=== PATIENT | female | born 1990 | race Caucasian/White ===

== ENCOUNTER → 2017-09-01 12:56 | Outpatient (CLI) | payer MEDICAID, SELFPAY ==
[2017-09-01 14:23] LABS: Progesterone Level 43.53 ng/mL (See Comment)
[2017-09-01 14:31] LABS: hCG Titer Quant., Serum 986 mIU/mL (<9 non-preg)
== END ==
DX: N91.4 Secondary oligomenorrhea (principal)
CPT/HCPCS: 36415; 84144; 84702

== ENCOUNTER → 2017-09-03 10:24 | Outpatient (CLI) | payer MEDICAID, SELFPAY ==
[2017-09-03 12:11] LABS: Progesterone Level 52.22 ng/mL (See Comment)
[2017-09-03 12:15] LABS: hCG Titer Quant., Serum 2008 mIU/mL (<9 non-preg)
== END ==
DX: N91.4 Secondary oligomenorrhea (principal)
CPT/HCPCS: 36415; 84144; 84702

== ENCOUNTER → 2017-09-08 14:43 | Outpatient (CLI) | payer MEDICAID, SELFPAY ==
--- NOTE | 2017-09-08 14:46 | US_ITS ---
STUDY: FIRST TRIMESTER OBSTETRICAL ULTRASOUND REASON FOR EXAM: Female, 27 years old. viability. LMP: 07/31/2017 TECHNIQUE: Transvaginal PRIOR ULTRASOUND: None. FINDINGS: There is visualization of a single gestational sac in a normal intrauterine position. The mean sac diameter (MSD) measures 1.0 cm, indicating an estimated gestational age (EGA) of 5 weeks, 5 days. The gestational sac shape is within normal limits. There is a visualized yolk sac. The yolk sac measures 3.4 mm. The placenta is non-visualized. There is no demonstrated embryo ( pole). The estimated gestation age (EGA) by LMP is 5 weeks, 4 days. The estimated date of delivery (JEWELS) by LMP is 05/07/2018. The estimated gestation age (EGA) by US is 5 weeks, 5 days. The estimated date of delivery (JEWELS) by US is 05/06/2018. The uterus measures 8.9 x 7.0 x 5.3 cm. There is no demonstrated uterine fibroid. The cervix is closed. The right ovary measures 2.5 x 1.7 x 1.2 cm. There is no right ovarian cyst. There is no visualized right adnexal mass or complex lesion. The left ovary measures 3.2 x 2.2 x 2.7 cm. There is no left ovarian cyst. There is no visualized left adnexal mass or complex lesion. There is no fluid in the cul de sac. US/Transvaginal w/Preg US IMPRESSION: Findings consistent with a very early intrauterine gestation. Ultrasound EGA of approximately 5 weeks 5 days. No pole or cardiac activity is seen and therefore viability is not established. Suggest short interval follow-up and correlation with beta hCG. Electronically Signed: Mihcael Loza MD at 23:58 EDT , Service support ,
== END ==
DX: O36.80X0 Pregnancy with inconclusive fetal viability, not applicable or unspecified (principal); Z3A.00 Weeks of gestation of pregnancy not specified
CPT/HCPCS: 76817

== ENCOUNTER → 2017-09-15 09:27 | Outpatient (CLI) | payer MEDICAID, SELFPAY ==
--- NOTE | 2017-09-15 09:36 | US_ITS ---
US OB Transvaginal INDICATION: VIABILITY COMPARISON: None TECHNIQUE: Ultrasonographic grayscale, Doppler and duplex investigation of the via trans-vaginal approach FINDINGS: The uterus measures 9.8 x 6.9 x 5.1 cm it contains a single live intrauterine gestation with crown-rump length of 6 mm, estimating a gestational age of 6 weeks and 3 days. heart rate measures 130 bpm. Measures 2 mm. There is no evidence of subchorionic hemorrhage. The ovaries are normal in size and demonstrate normal follicular anatomy normal flow. There is no evidence of free pelvic fluid. US/Transvaginal w/Preg US IMPRESSION: Single live intrauterine gestation with estimated gestational age of 6 weeks and 3 days by today's measurements. heart rate 130 bpm. at 1815 Reported and signed by: Rocio Peña MD Electronically Signed: Rocio Peña MD at 18:13 EDT Tel , Service support ,
== END ==
DX: O36.80X0 Pregnancy with inconclusive fetal viability, not applicable or unspecified (principal); Z3A.00 Weeks of gestation of pregnancy not specified
CPT/HCPCS: 76817

== ENCOUNTER → 2018-01-19 15:25 | Outpatient (CLI) | payer MEDICAID, SELFPAY ==
[2018-01-19 17:28] LABS: Chlamydia Trachomatis by PCR Negative (Negative); Neisserai gonorrhoeae by PCR Negative (Negative); Probe Check PASS; Sample Adequacy Control PASS; Specimen Processing Control PASS
== END ==
PROVIDERS: Visit Provider Obstetrics & Gynecology
DX: Z34.90 Encounter for supervision of normal pregnancy, unspecified, unspecified trimester (principal)
CPT/HCPCS: 87491; 87591

== ENCOUNTER → 2018-02-16 11:33 | Outpatient (CLI) | payer MEDICAID, SELFPAY ==
[2018-02-16 13:02] LABS: Absolute Lymphocyte Count 1.21 X10^3/ul (0.83-4.51); Absolute Neutrophil Count 5.1 X10^3/uL (2.0-7.7); Basophil# 0.01 X10^3/uL; Basophil% 0.2 % (0-1); Eosinophil# 0.03 X10^3/uL; Eosinophils% 0.5 % (0-5); Hematocrit 34.9 % (37-47); Lymphocyte # 1.21 X10^3/ul (4.0); Lymphocyte % 18.3 % (19-41); Mean Corp Hgb Conc 34.4 g/gl (32-36); Mean Corpuscular Hgb 31.7 pg (27.0-32.0); Mean Corpuscular Volume 92.3 fL (81-99); Monocyte% 4.5 % (0-10); Neutrophil # 5.08 X10^3/uL (2.7-7.7); Neutrophil % 76.5 % (47-70); Platelet Count 167 K/mm3 (150-450); RBC Distribution Width CV 12.9 % (11.6-14.6); RBC Distribution Width SD 42.7 fl (35.1-43.9); Red Blood Count 3.78 M/mm3 (4.2-5.4); White Blood Count 6.6 K/mm3 (4.4-11.0)
[2018-02-16 13:03] LABS: POSITIVE COUNT NO; POSITIVE DIFFERENTIAL NO; POSITIVE MORPHOLOGY NO
[2018-02-16 13:16] LABS: Glucose Challenge Gest 1H 50g 108 mg/dL (70-140)
== END ==
PROVIDERS: Referring Provider Obstetrics & Gynecology; Visit Provider Obstetrics & Gynecology
DX: Z34.90 Encounter for supervision of normal pregnancy, unspecified, unspecified trimester (principal)
CPT/HCPCS: 36415; 82950; 85025

== ENCOUNTER → 2018-02-23 09:01 | Outpatient (CLI) | payer MEDICAID, SELFPAY ==
--- NOTE | 2018-02-23 09:02 | ECHOD_ITS ---
Reason For Study: congenital heart disease, PCK Procedure This was a 2D Doppler, Color Flow transthoracic echocardiogram. Exam performed in department. Left Ventricle Normal LV size. Left ventricular systolic function is normal. The estimated ejection fraction is 55 %. Normal diastology for age. No regional wall motion abnormalities noted. Right Ventricle Normal RV size. Normal systolic function. Atria Normal left atrium. Normal right atrium. Mitral Valve Normal mitral valve. Tricuspid Valve Normal tricuspid valve. Mild tricuspid valve insufficiency. Pulmonary artery systolic pressure is 34 mmHg. Aortic Valve Normal aortic valve. Pulmonic Valve Normal pulmonic valve. Great Vessels Normal aortic root. The pulmonary artery is normal size. Normal inferior vena cava. Pericardium/Pleural No pericardial effusion. MMode/2D Measurements & Calculations LVIDd: 4.4 cm IVSd: 0.88 cm Ao root diam: 2.4 cm LVIDs: 2.8 cm LVPWd: 0.92 cm LA dimension: 3.4 cm RVDd: 3.4 cm FS: 36.2 % LAV(MOD-bp): 43.6 ml LA A4 area: 16.6 cm2 RA A4 area: 11.2 cm2 LAV(MOD-bp) Indexed: 26.0 ml/m2 LAV(MOD-sp2): 37.5 ml LAV(MOD-sp4): 48.3 ml Doppler Measurements & Calculations MV E max dez: 91.5 cm/sec Lat Peak E' Dez: 15.9 cm/sec Med Peak E' Dez: 11.5 cm/sec MV A max dez: 72.9 cm/sec E/E' lat: 5.7 E/E' med: 7.9 MV E/A: 1.3 Ao V2 max: 128.2 cm/sec LV V1 max: 103.1 cm/sec TR max dez: 261.0 cm/sec Ao max P.6 mmHg LV V1 max P.3 mmHg TR max P.2 mmHg Interpretation Summary Normal LV size. Left ventricular systolic function is normal. The estimated ejection fraction is 55 %. Mild tricuspid valve insufficiency. Normal diastology for age. Ordering Physician: Milo Medel Referring Physician: Haylie Menendez Performed By: Khushbu Santos, MAROGT, RVT
== END ==
PROVIDERS: Referring Provider Internal Medicine Cardiovascular Disease; Visit Provider Internal Medicine Cardiovascular Disease
DX: Q61.3 Polycystic kidney, unspecified (principal)
CPT/HCPCS: 93306

== ENCOUNTER → 2018-04-13 16:50 | Outpatient (CLI) | payer MEDICAID, SELFPAY ==
[2018-04-13 10:40] VITALS: BMI 26.4
--- OUTSIDE RECORDS SUMMARY | 2018-06-09 02:55 | XMS RPT_ITS ---
:1990 Author Organization OHIP Support Name Relationship Address Phone [facility] Unavailable [address] + [place] [address] MGQUIRE, YAW Unavailable [address] + [place] [address] SYBIL RYANNE Unavailable [address] + [place] [address] [facility] Unavailable [address] + [place] [address] MGQUIRE, YAW Unavailable [address] + [place] [address] SYBIL RYANNE Unavailable [address] + [place] [address] [facility] Unavailable [address] + [place] [address] MGQUIRE, YAW Unavailable [address] + [place] [address] SYBIL RYANNE Unavailable [address] + [place] [address] [facility] Unavailable [address] + [place] [address] MGQUIRE, YAW Unavailable [address] + [place] [address] SYBIL RYANNE Unavailable [address] + [place] [address] BULL RODRIGUEZ Unavailable [address] + [place] [address] [facility] Un[address] + [place] [address] MGQUIRE, YAW Unavailable [address] + [place] [address] SYBIL, RYANNE Unavailable [address] + [place] [address] [facility] Unavailable [address] + [place] [address] MGQUIRE, YAW Unavailable [address] + [place] [address] SYBIL, RYANNE Unavailable [address] + [place] [address] ANA M, BULL Unavailable [address] + [place] [address] [facility] Unavailable [address] + [place] [address] MGQUIRE, YAW Unavailable [address] + [place] [address] SYBIL, RYANNE Unavailable [address] + [place] [address] [facility] Unavailable [address] + [place] [address] MGQUIRE, YAW Unavailable [address] + [place] [address] SYBIL, RYANNE Unavailable [address] + [place] [address] ANA M, BULL Unavailable [address] + [place] [address] [facility] Unavailable [address] + [place] [address] MGQUIRE, YAW Unavailable [address] + [place] [address] SYBIL, RYANNE Unavailable [address] + [place] [address] ANA M, BULL Unavailable [address] + [place] [address] ANA M BULL Unavailable [address] + [place] [address] [facility] Unavailable [address] + [place] [address] MGQUIRE, YAW Unavailable [address] + [place] [address] KATHERINE DEVINERICIA Unavailable [address] + [place] [address] RUFINA RODRIGUEZUA Unavailable [address] + [place] [address] BRITTANY RODRIGUEZSHUA Unavailable [address] + [place] [address] [facility] Unavailable [address] + [place] [address] MGQUIRE, YAW Unavailable [address] + [place] [address] KATHERINE DEVINERICIA Unavailable [address] + [place] [address] RUFINA RODRIGUEZUA Unavailable [address] + [place] [address] [facility] Unavailable [address] + [place] [address] MGQUIRE, YAW Unavailable [address] + [place] [address] KATHERINE DEVINERICIA Unavailable Unavailable + [facility] Unavailable [address] + [place] [address] MGQUIRE, YAW Unavailable [address] + [place] [address] SYBIL RYANNE Unavailable Unavailable + [facility] Unavailable [address] + [place] [address] MGQUIRE, YAW Unavailable [address] + [address] [place] [address] KATHERINE DEVINERICIA Unavailable Unavailable + [facility] Unavailable [address] + [place] [address] MGQUIRE, YAW Unavailable [address] + [address] [place] [address] [facility] Unavailable [address] + [place] [address] MGQUIRE, YAW Unavailable [address] + [address] [place] [address] BULL RODRIGUEZ Unavailable [address] + [place] [address] RUFINA RODRIGUEZUA Unavailable [address] + [place] [address] [facility] Unavailable [address] + [place] [address] MGQUIRE, YAW Unavailable [address] + [address] [place] [address] [facility] Unavailable [address] + [place] [address] MGQUIRE, YAW Unavailable [address] + [address] [place] [address] BULL RODRIGUEZ Unavailable [address] + [place] [address] RUFINA RODRIGUEZUA Unavailable [address] + [place] [address] BRITTANY RODRIGUEZSHUA Unavailable [address] + [place] [address] [facility] Unavailable [address] + [place] [address] MGQUIRE, YAW Unavailable [address] + [address] [place] [address] RUFINA RODRIGUEZUA Unavailable [address] + [place] [address] [facility] Unavailable [address] + [place] [address] MGQUIRE, YAW Unavailable [address] + [address] [place] [address] [facility] Unavailable [address] + [place] [address] MGQUIRE, YAW Unavailable [address] + [address] [place] [address] [facility] Unavailable [address] + [place] [address] MGQUIRE, YAW Unavailable [address] + [address] [place] [address] ANA M, RUFINA Unavailable [address] + [place] [address] ANA M, RUFINA Unavailable [address] + [place] [address] ANA M, FLORES Unavailable [address] + [place] [address] [facility] Unavailable [address] + [place] [address] MGQUIRE, YAW Unavailable [address] + [address] [place] [address] [facility] Unavailable [address] + [place] [address] MGQUIRE, YAW Unavailable [address] + [address] [place] [address] ANA M, RUFINA Unavailable [address] + [place] [address] ANA M, RUFINA Unavailable [address] + [place] [address] ANA M, FLORES Unavailable [address] + [place] [address] [facility] Un[address] + [place] [address] MGQUIRE, YAW Unavailable [address] + [address] [place] [address] [facility] Unavailable [address] + [place] [address] MGQUIRE, YAW Unavailable [address] + [address] [place] [address] ANA M, RUFINA Unavailable [address] + [place] [address] ANA M, RUFINA Unavailable [address] + [place] [address] ANA M, FLORES Unavailable [address] + [place] [address] ANA M, RUFINA Unavailable [address] + [place] [address] ANA M, RUFINA Unavailable [address] [facility] [address] + [place] [address] ANA M, FLORES Unavailable [address] + [place] [address] ANA M, RUFINA Unavailable [address] [facility] [address] + [place] [address] ANA M, RUFINA Unavailable [address] [facility] [address] + [place] [address] ANA M, FLORES Unavailable [address] + [place] [address] [facility] Unavailable [address] +. [place] [address] MGQUIREYAW Unavailable [address] + [address] [place] [address] Care Team Providers Name Role Phone CHAD ARCHER (SENIOR RELIABILITY ENGINEER) Attending Unavailable Dr. MARY PETERSON Attending Unavailable PCP, NONE Primary Care Unavailable LIDIA LINARES CNM Attending Unavailable PHYSICIAN, NONE Primary Care Unavailable LIDIA LINARES CNM Attending Unavailable PHYSICIAN, NONE Primary Care Unavailable LIDIA LINARES CNM Attending Unavailable PHYSICIAN, NONE Primary Care Unavailable LIDIA LINARES CNM Attending Unavailable PHYSICIAN, NONE Primary Care Unavailable LIDIA LINARES CNM Attending Unavailable PHYSICIAN, NONE Primary Care Unavailable NO PRIMARY CARE, Primary Care Unavailable ENRIQUE DONALDSON Attending Unavailable HAYLIE ALFARO Referring Unavailable NO PRIMARY CARE, Primary Care Unavailable REFERRED, SELF Referring Unavailable HILDA STEVE Attending Unavailable NO PRIMARY CARE, Primary Care Unavailable SUSANNA BRAY Attending Unavailable HAYLIE ALFARO Referring Unavailable NO PRIMARY CARE, Primary Care Unavailable CHUCHO CARRILLO Attending Unavailable SUSANNA BRAY Referring Unavailable NO PRIMARY CARE, Primary Care Unavailable TOM LAZO Attending Unavailable HAYLIE ALFARO Referring Unavailable NO PRIMARY CARE, Primary Care Unavailable HAYLIE ALFARO Referring Unavailable PAT MONTES Attending Unavailable NO PRIMARY CARE, Primary Care Unavailable SUSANNA BRAY Attending Unavailable MARCANTHONY, HAYLIE E Referring Unavailable NO PRIMARY CARE, Primary Care Unavailable ENRIQUE DONALDSON Attending Unavailable MARCANTHONY, HAYLIE E Referring Unavailable NO PRIMARY CARE, Primary Care Unavailable ENRIQUE DONALDSON Attending Unavailable MARCANTHONY, HAYLIE E Referring Unavailable NO PRIMARY CARE, Primary Care Unavailable ENRIQUE DONALDSON Attending Unavailable MARCANTHONY, HAYLIE E Referring Unavailable NO PRIMARY CARE, Primary Care Unavailable ENRIQUE DONALDSON Attending Unavailable MARCANTHONY, HAYLIE E Referring Unavailable NO PRIMARY CARE, Primary Care Unavailable SUSANNA BRAY Attending Unavailable MARCANTHONY, HAYLIE E Referring Unavailable NO PRIMARY CARE, Primary Care Unavailable MARCANTHONY, HAYLIE E Referring Unavailable PAT MONTES Attending Unavailable NO PRIMARY CARE, Primary Care Unavailable CASSANDRA VALDES Attending Unavailable MARCANTHONY, HAYLIE E Referring Unavailable Marcanthony, Haylie Attending Unavailable Primay Care Physicia, No Primary Care Unavailable Marcanthony, Haylie Admitting Unavailable Marcanthony, Haylie Referring Unavailable Marcanthony, Haylie Admitting Unavailable Marcanthony, Haylie Attending Unavailable Marcanthony, Haylie Referring Unavailable Primay Care Physicia, No Primary Care Unavailable Marcanthony, Haylie Consulting Unavailable Primay Care Physicia, No Primary Care Unavailable Connie Nguyen Attending Unavailable AMELIA DAVIS Attending Unavailable Primay Care Physicia, No Primary Care Unavailable AMELIA DAVIS Referring Unavailable Marcanthony, Haylie Admitting Unavailable Wishek, Idalmis Attending Unavailable Marcanthony, Haylie Referring Unavailable Primay Care Physicia, No Primary Care Unavailable Marcanthony, Haylie Consulting Unavailable Marcanthony, Haylie Admitting Unavailable Wishek, Idalmis Attending Unavailable Marcanthony, Haylie Referring Unavailable Primay Care Physicia, No Primary Care Unavailable Marcanthony, Haylie Consulting Unavailable AMELIA DAVIS Attending Unavailable AMELIA DAVIS Referring Unavailable Primay Care Physicia, No Primary Care Unavailable AMELIA DAVIS Attending Unavailable Primay Care Physicia, No Primary Care Unavailable AMELIA DAVIS Consulting Unavailable AMELIA DAVIS Attending Unavailable AMELIA DAVIS Referring Unavailable Primay Care Physicia, No Primary Care Unavailable AMELIA DAVIS Consulting Unavailable Marcanthony, Haylie Attending Unavailable Primay Care Physicia, No Referring Unavailable Primay Care Physicia, No Primary Care Unavailable Primay Care Physicia, No Attending Unavailable Primay Care Physicia, No Attending Unavailable Marcanthony, Haylie Attending Unavailable Primay Care Physicia, No Referring Unavailable Primay Care Physicia, No Primary Care Unavailable Marcanthony, Haylie Attending Unavailable Primay Care Physicia, No Referring Unavailable Primay Care Physicia, No Primary Care Unavailable Marcanthony, Haylie Attending Unavailable Primay Care Physicia, No Primary Care Unavailable Marcanthony, Haylie Referring Unavailable Gianfranco, Milo Attending Unavailable Primay Care Physicia, No Referring Unavailable Marcanthony, Haylie Attending Unavailable Primay Care Physicia, No Referring Unavailable Marcanthony, Haylie Attending Unavailable Marcanthony, Haylie Referring Unavailable Primay Care Physicia, No Primary Care Unavailable Gianfranco, Milo Attending Unavailable Gianfranco, Milo Referring Unavailable Primay Care Physicia, No Primary Care Unavailable Gianfranco, Milo Attending Unavailable Gianfranco, Milo Referring Unavailable Primay Care Physicia, No Primary Care Unavailable Gianfranco, Iola Consulting Unavailable Marcanthony, Haylie Attending Unavailable Primay Care Physicia, No Referring Unavailable Marcanthony, Haylie Attending Unavailable Primay Care Physicia, No Referring Unavailable Josh, Idalmis Attending Unavailable Primay Care Physicia, No Referring Unavailable Marcanthony, Haylie Attending Unavailable Primay Care Physicia, No Referring Unavailable Marcanthony, Haylie Attending Unavailable Primay Care Physicia, No Primary Care Unavailable Marcanthony, Haylie Referring Unavailable Gianfranco, Milo Attending Unavailable Marcanthony, Haylie Referring Unavailable Josh, Idalmis Attending Unavailable Primay Care Physicia, No Referring Unavailable PROBLEMS PROBLEMS DATE TYPE CONDITION / CODE ATTENDING STATUS SOURCE 04/28/2018 Unknown G89.18 - Other acute Marcanthony, Active [place] postprocedural pain [facility] / G89.18(ICD-10) Hospital Repository 04/20/2018 Unknown Z34.83 - Encounter Gianfranco, Milo Active [place] for supervision of [facility] other normal Hospital , third Repository trimester / Z34.83(ICD-10) 04/14/2018 Unknown Z34.90 - Encounter Marcanthony, Active [place] for supervision of [facility] normal , Hospital unspecified, Repository unspecified trimester / Z34.90(ICD-10) 04/13/2018 Unknown Z87.59 - Personal Marcanthony, Active [place] history of other [facility] complications of Hospital , Repository childbirth and the puerperium / Z87.59(ICD-10) 04/13/2018 Unknown O34.219 - Maternal Marcanthony, Active [place] care for unspecified [facility] type scar from Hospital previous Repository delivery / O34.219(ICD-10) 04/13/2018 Unknown Q61.3 - Polycystic Marcanthony, Active [place] kidney, unspecified [facility] / Q61.3(ICD-10) Hospital Repository 04/13/2018 Unknown O99.343 - Other Marcanthony, Active [place] mental disorders [facility] complicating Hospital , third Repository trimester / O99.343(ICD-10) 04/13/2018 Unknown F41.9 - Anxiety Marcanthony, Active [place] disorder, [facility] unspecified / Hospital F41.9(ICD-10) Repository 04/13/2018 Unknown Z3A.36 - 36 weeks Marcanthony, Active [place] gestation of [facility] / Hospital Z3A.36(ICD-10) Repository 03/28/2018 Unknown Z3A.34 - 34 weeks Wishek, Active [place] gestation of [facility] / Hospital Z3A.34(ICD-10) Repository 03/14/2018 Unknown Z3A.29 - 29 weeks Marcanthony, Active [place] gestation of [facility] / Hospital Z3A.29(ICD-10) Repository 03/14/2018 Unknown Z3A.32 - [facility] [place] gestation of [facility] / Hospital Z3A.32(ICD-10) Repository 03/04/[address] Elda PETERSON [facility] Diagnosis abdominal pain / [facility] G [facility] R10.9(ICD-10) Repository 03/04/[address] Elda PETERSON [facility] (Discharge) related conditions, [facility] G System third trimester / Repository O26.893(ICD-10) 03/04/2018 Final Diagnosis [address] Elda PETERSON [facility] (Discharge) of / MARY G System Z3A.30(ICD-10) Repository 03/04/2018 Final Diagnosis Pelvic and perineal Dr. Elda PETERSON [facility] (Discharge) pain / R10.2(ICD-10) MARY G [facility] Repository 03/04/[address] KRISTEN Active [facility] Diagnosis abdominal pain / MARY G System R10.9(ICD-10) Repository 02/28/2018 Unknown Z3A.30 - 30 weeks Gemma, Active [place] gestation of [facility] / Hospital Z3A.30(ICD-10) Repository 02/16/2018 Unknown Z23 - Encounter for Gemma, Active [place] immunization / [facility] Z23(ICD-10) Hospital Repository 02/16/2018 Unknown Z3A.28 - 28 [facility] [place] gestation of [facility] / Hospital Z3A.28(ICD-10) Repository 01/19/2018 Unknown Z34.82 - Encounter [facility] Active [place] for supervision of [facility] other normal Hospital , second Repository trimester / Z34.82(ICD-10) 01/19/2018 Unknown Z3A.24 - 24 weeks [place], Active [place] gestation of [facility] / Hospital Z3A.24(ICD-10) Repository 09/08/2017 Unknown O36.80X0 - AMELIA DAVIS Active [place] with [facility] viability, not Hospital applicable or Repository unspecified / O36.80X0(ICD-10) PROCEDURES PROCEDURES No Procedure Records FoundRESULTS RESULTS DISCHARGE INSTRUCTION Observed: 04/28/2018 Status: F Source: [place] 8:10 AM [facility] REPOSITORY [facility] Medical Records Department [address] [place] [address] Instructions for Home/Discharge Instructions 04/28/18 0809 MR#: [id number] Acct: [id number] Name: TESSA RODRIGUEZ Rep #: [id number] : 1990 27 From: Idalmis Moreno SENIOR RELIABILITY ENGINEER-Rosita PCP: Care Physician, No Primary Status: ADM IN Additional Instructions: If you experience any of the following, contact your healthcare provider. * Bleeding that soaks a pad every hour for 2 hours * Fever 100.4 or higher * Unrelieved incision or abdominal pain * Swelling, redness, discharge or bleeding from your incision or episiotomy site * Your incision begins to separate * Problems urinating (including inability to urinate or burning while urinating). * Visual changes * Severe headache * Flu-like symptoms * Pain or redness in one of both of your breasts * Pain, warmth, tenderness or swelling in your legs, especially the calf area * Frequent nausea and vomiting * Symptoms of depression or anxiety If you experience any of the following, call 911 or go to the nearest Emergency Room. * Chest pain * Problems breathing * Seizure activity * Partial or complete paralysis of a body part, slurred speech, weakness or drooping of the face, or a sudden inability to walk or hold your balance Allergies/Adverse Reactions: Allergies No Known Allergies Allergy (Verified 04/26/18 05:27) Medications to take at Discharge Vits [Prenatabs FA] 1 tab PO DAILY 04/13/17 citalopram 20 mg tablet 20 mg PO DAILY #30 tab 03/14/18 Naproxen [Naprosyn] 500 mg PO BID PRN PRN #60 tablet 04/28/18 Oxycodone HCl/Acetaminophen [Percocet 5/325] 1 - 2 tablet PO Q4H PRN PRN 3 Days #15 tablet 04/28/18 The following prescriptions were given: Oxycodone HCl/Acetaminophen [Percocet 5/325] 1 - 2 tablet PO Q4H PRN PRN 3 Days #15 tablet PRN Reason: Pain Naproxen [Naprosyn] 500 mg PO BID PRN PRN #60 tablet PRN Reason: Pain Primary Care Physician: Care Physician,No Primary [Primary Care Provider] - Test Results: Test results from this visit will be discussed in further detail at your follow-up appointment, if applicable. 04/28/18 0810 <Electronically signed by Idalmis SIBLEY> Date Idalmis SIBLEY CC: No Primary Care Physician OPERATIVE REPORT Observed: 04/26/2018 Status: F Source: [place] 10:39 PM [facility] REPOSITORY [facility] Medical Records Department [address] [place] [address] Operative Report 04/26/18 2227 MR#: [id number] Acct: [id number] Name: ANA MTESSA Rep #: [id number] : 1990 27 From: Haylie Alfaro MD PCP: Care Physician, No Primary Status: ADM IN Y Location: NT864-0 - Problem List (1) Active labor Status: Acute (2) Anxiety and depression Status: Acute Comment: celexa, counseled regarding risks of medication, counseling encouraged (3) PCK (polycystic kidney disease) Status: Acute Comment: mfm cocare (4) Status: Acute Qualifiers: Comment: anatomy scan scheduleds/p mfm consult- Cardio and Nephro appt needed- co managment of care with MFM. Normal BPP and growth. (5) Previous delivery affecting Status: Acute Comment: previous then cs for breech, plan TOLAC (6) History of Status: Acute Comment: kidney issues, poor lung development, shortly after . plan MFM anatomy scan, nl NIPT (7) Supervision of normal Status: Acute Qualifiers: Comment: PRR JEWELS 05/07/18 boy Jose C Sweet, ([facility]) Roberto (2 kids) Vaginal Delivery Maternal Presentation: Active Labor tolac Amniotic Membrane Rupture Type: Artificial Amniotic Fluid Description: Bloody Final JEWELS: 04/23/18 Gestational age: 40 Weeks and 3 Days Date of Procedure: 04/26/18 Pre-Operative Diagnosis: tolac Post-Operative Diagnosis: Surgery/ Procedure Performed: Vacuum Assisted Vaginal Delivery - Type of Anesthesia: Epidural Description of Procedure: Patient began pushing and developed a bradycardia into the 90s with moderate variability. she started pushing and the vertex was at a +3 station, vacuum applied and two pop offs were encoutnered and a midline episiotomy was cut. she pushed again and delivered the head in the KESHA presentation. The head was delivered atraumatically. The anterior and posterior shoulders delivered without complication followed by the rest of the and the infant was placed on the maternal abdomen. Delayed cord clamping was employed for approximately 60 seconds. Cord was clamped and cut and gentle traction was applied to the cord and the placenta delivered spontaneously immediately following it was noted to be intact with three-vessel cord. The perineum and vagina were inspected and it was noted to have a third degree laceration involving up to the anal mucosa which was reapproximated with 3-0 vicryl rapide and then the anal sphincter was reapproximated with 2-0 pds and the laceration was repaired without complication. EBL was 400 cc. Patient and infant tolerated delivery well. Presentation: CHRISTIANO Placental Delivery Description: Spontaneous Placenta Disposition: [facility] Cord Vessel Description: 3 Vessels Cord Entanglement: None Estimated Blood Loss: 400 Infant A gender: Male Episiotomy Description: Midline Laceration: Perineal Extension/lac, 3rd degree Medications given after delivery: IV Pitocin Complications: None 04/26/189 <Electronically signed by Haylie Alfaro MD> Date Haylie Alfaro MD CC: No Primary Care Physician; Haylie Alfaro MD Signed HISTORY AND PHYSICAL Observed: 04/26/2018 Status: F Source: [place] EXAM 10:19 PM [facility] REPOSITORY [facility] Medical Records Department [address] [place] [address] History and Physical 04/26/18 2205 MR#: [id number] Acct: [id number] Name: TESSA RODRIGUEZ Rep #: [id number] : 1990 27 From: Haylie Alfaro MD PCP: Care Physician, No Primary Status: ADM IN Location: [address] - Problem List (1) Active labor Status: Acute (2) Anxiety and depression Status: Acute Comment: celexa, counseled regarding risks of medication, counseling encouraged (3) PCK (polycystic kidney disease) Status: Acute Comment: m cocare (4) Status: Acute Qualifiers: Comment: anatomy scan scheduleds/p mfm consult- Cardio and Nephro appt needed- co managment of care with MFM. Normal BPP and growth. (5) Previous delivery affecting Status: Acute Comment: previous then cs for breech, plan TOLAC (6) History of Status: Acute Comment: kidney issues, poor lung development, shortly after . plan MFM anatomy scan, nl NIPT (7) Supervision of normal Status: Acute Qualifiers: Comment: PRR JEWELS 12/22/18 boy Jose C Sweet, ([facility]) Roberto (2 kids) History Date of Admission: 04/26/18 Final JEWELS: 04/23/18 Gestational age: 40 Weeks and 3 Days History of this : This is a 27 year-old, , at 38 weeks gestational age presents IAL. she has a history of a vaginal and a . she co some vagina lbleeding this morning and irregular ctx and then made some cervical change later. Overall there is a reassuring heart rate pattern, Medical History: Medical History (Last Reviewed 04/20/18 @ 09:54 by Leatha Lyles) Anxiety F41.9 Polycystic kidney disease Q61.3 Surgical History: Surgical History (Last Reviewed 04/20/18 @ 09:54 by Leatha Lyles) delivery delivered O82 Allergies No Known Allergies Allergy (Verified 04/26/18 05:27) Home Medications: Home Medications Vits [Prenatabs FA] 1 tab PO DAILY 04/13/17 citalopram 20 mg tablet 20 mg PO DAILY #30 tab 03/14/18 Smoking Status: Former smoker Alcohol: None Number of Fetus(es): 1 Heart Tracins moderate variability reactive no decels cat i TOCO Analysis: q4-5 History Past Pregnancies: Past Pregnancies Pregancy History 6 Elective abortions Hx Para 2 Spontaneous abortions Past Pregnancies Del. DatName GA/WeeksOutcome [facility] LocaProviderFOB e ht en ia tn 09/16/11Lanner 39 live birNSVD 6lbs 7ozMale 18 hoursepiduralPomereneMidwife [facility] Hospita l term l Delivery Date: 12/15/14 On 12/22/17 @ 11:30 Gretchen Addison breech, enlarged Delivery Date: 09/16/11 On 12/22/17 @ 11:29 Gretchen Addison No issues during or delivery. Delivery Date: No notes to display Labs: Mom's Problem List Problem Status Onset Code Active labor Acute Mom's Labs AND Results WBC 10.3 12.6 H RBC 4.36 4.14 L Hgb 13.3 12.7 Hct 38.8 37.3 MCV 89.0 90.1 Course Did the patient receive Yes care? Labs Blood Type: A Current Obstetrical History Gestational Diabetes No Incompetent Cervix No Infertility No IUGR No Macrosomia No Hypertension/Pre-eclampsia No Placenta Previa/Abruption No PTL/PROM No Uterine anomaly No Oligohydramnios No Polyhydramnios No Multiple gestation No Past Medical History Asthma No Diabetes No Hypertension No Heart disease No Mitral valve prolapse No Neurologic/Seizure disorder/ No Migraines Kidney disease Yes: Polycystic kidney disease Liver disease No Varicosities No Clotting disorders/Hx of DVT No Thyroid Dysfunction No Other medical diseases No Psychiatric disorders Yes: anxiety: Celexa x 2 mths. Pt states doing well with medication. Major trauma No Abnormal PAP smear No Sleep apnea No Mammogram in the last 2 years No Social History Marital Status: Alleged father Roberto Pickering Hx Smoking No Smoking Status Former smoker Expected Infant Delivery Method: Describe any other labor AND delivery plans:: OB Visit. JEWELS Calculator. Estimated Delivery Date 05/07/18. Based on LMP (certain) 07/31/17. Current WG 37w 4d. Number 1. Expected Delivery Route/Plan. TOLAC consent form signed. edcation given. Specific Issue/Plans. flu vaccine: declined. tdap vaccine: considering. rhogam: na. LARC form signed: declined. labor support person: Neptali. pain management: epidural. cut cord/dad catch: yes. : yes. PP control planned: pill or nuvaring. discussed possible routes of delivery and associated risks: . special requests: [] Review of Systems Constitutional: Denies: Fever, Malaise Eyes: Denies: Blurred vision, Vision Change HEENT: Denies: Head Aches, Visual Changes Cardiovascular: Denies: Chest Pain, Palpitations Respiratory: Denies: Cough, Shortness of Breath, Wheezing Gastrointestinal: Denies: Abdominal Pain, Diarrhea, Nausea, Vomiting Genitourinary: Denies: Dysuria, Hematuria Gynecological: Reports: Vaginal bleeding Musculoskeletal: Denies: Joint Pain, Muscle pain Skin: Denies: Lesions, Rash Neurological: Denies: Blurred vision, Focal weakness, Headaches Psychiatric: Denies: Anxiety, Depression Endocrine: Denies: Heat/ Cold Intolerance Hematologic/ Lymphatic: Denies: Easy Bruising, Easy Bleeding Physical Exam Vitals: Vital Signs Temp Pulse Resp BP 98.7 F 78 16 126/68 H 04/26/18 19:55 04/26/18 19:55 04/26/18 19:55 04/26/18 19:55 General: Alert, Cooperative, No apparent distress HEENT: Atraumatic, Normocephalic. Negative for: Thyromegaly, Lymphadenopathy Cardiovascular: Regular rate Lungs: Normal air movement Abdomen: Soft, Non Tender, Gravid Neurological: Deep Tendon Reflexes 2+/4 and Symmetrical, Neuro grossly intact. Negative for: Clonus LATHE SET UP OPERATOR: Normal external genitalia - positive bright red bleeding intermittent. Negative for: Vulvar lesions Estimated gestational size: Appropriate for gestational size Presentation: Cephalic Cervix Dilation (cm): 4 Station: -1 Effacement (%): 70 Assessment/Plan All Active Problems (Last Reviewed 04/20/18 @ 09:54 by Leatha Lyles) Active labor (Acute) Anxiety and depression (Acute) PCK (polycystic kidney disease) (Acute) (Acute) Previous delivery affecting (Acute) History of (Acute) Supervision of normal (Acute) This is a 27 year-old, at 38 weeks gestational age IAL Patient presents IAL, plan expectant management for , pitocinprn, arom bloody fluid. Pain management: plans epidural. GBS negative. Management of any complications: none I have reviewed the [facility] and made any clinically relevant updates. 04/26/18 7207 <Electronically signed by Haylie Alfaro MD> Date Haylie Alfaro MD Cosigner Signature: Date (if applicable) CC: No Primary Care Physician; Haylie Alfaro MD Signed CBC-COMPLETE BLOOD CNT Collected: 04/26/2018 Status: F Source: [place] NO DIFF 4:40 PM [facility] REPOSITORY TYPE CODE TESTS RESULT OUT OF RANGE REFERENCE UNITS LAB L100.1000 4.4-11.0 K/mm3 High WBC 12.6 LAB L100.1200 4.2-5.4 M/mm3 Low RBC 4.14 LAB L100.1300 12.0-15.0 g/dl Normal HGB 12.7 LAB L100.1400 37-47 % Normal HCT 37.3 LAB L100.1500 81-99 fL Normal MCV 90.1 LAB L100.1600 27.0-32.0 pg Normal MCH 30.7 LAB L100.1700 32-36 g/gl Normal MCHC 34.0 LAB L100.1810 11.6-14.6 % Normal RDW CV 12.7 LAB L100.1820 35.1-43.9 fl Normal RDW SD 41.4 LAB L100.1900 150-450 K/mm3 Low PLT 132 LAB L100.2000 6.2-12.0 fl Normal MPV 11.1 Performed By: #### L100.0500 #### [facility] [address] [place], [place], [address] CBC-COMPLETE BLOOD CNT Collected: 04/26/2018 Status: F Source: [place] NO DIFF 7:35 AM [facility] REPOSITORY TYPE CODE TESTS RESULT OUT OF RANGE REFERENCE UNITS LAB L100.1000 4.4-11.0 K/mm3 Normal WBC 10.3 LAB L100.1200 4.2-5.4 M/mm3 Normal RBC 4.36 LAB L100.1300 12.0-15.0 g/dl Normal HGB 13.3 LAB L100.1400 37-47 % Normal HCT 38.8 LAB L100.1500 81-99 fL Normal MCV 89.0 LAB L100.1600 27.0-32.0 pg Normal MCH 30.5 LAB L100.1700 32-36 g/gl Normal MCHC 34.3 LAB L100.1810 11.6-14.6 % Normal RDW CV 12.8 LAB L100.1820 35.1-43.9 fl Normal RDW SD 40.9 LAB L100.1900 150-450 K/mm3 Normal PLT 155 LAB L100.2000 6.2-12.0 fl Normal MPV 11.1 Performed By: #### L100.0500 #### [facility] [address] [place], [address] TYPE AND SCREEN Collected: 04/26/2018 Status: F Source: [place] 7:35 AM [facility] REPOSITORY Order Comment: Reason for Type AND Screen/Red Cells: ROUTINE TYPE CODE TESTS RESULT OUT OF RANGE REFERENCE UNITS LAB B10.0800 A Normal BLOOD TYPE GEL POSITIVE LAB B100.4000 Normal Antibody NEGATIVE Screen Performed By: #### B101.7450 #### [facility] [address] [place], [address] [employer] OFFICE VISIT Observed: 04/20/2018 Status: F Source: [place] REPORT 12:09 PM [facility] REPOSITORY [facility] Department [address] [place] [address] OFFICE VISIT Date of Service: 04/20/18 MR#: [id number] Acct: [id number] Name: TESSA RODRIGUEZ Rep #: [id number] : 1990 Provider: AMEYA Moreno Age/Sex: 27/F Location: [facility] Status: Signed Intake Vital Signs04/20/18 Body Mass Index (BMI) 26.7 04/20/18 Height 5 ft 3 in 04/20/18 Weight: 149 lb 4 oz 04/20/18 Body Mass Index (BMI) 26.4 04/20/18 Blood Pressure 102/64 Intake Visit Reasons: 37 WEEK OB Import Export Clerk Required: No Is patient in pain?: No Allergies No Known Allergies Allergy (Verified 04/20/18 09:54) Medications Vits [Prenatabs FA] 1 tab PO DAILY 04/13/17 [History Confirmed 04/20/18] citalopram 20 mg tablet 20 mg PO DAILY #30 tab 03/14/18 [Rx Confirmed 04/20/18] Last Menstral Period: 07/31/17 Zika: Zika virus screening: Negative : No PFSH PFSH Medical History Anxiety (Acute) Polycystic kidney disease (Acute) Surgical History delivery delivered (Acute) Family History Mother Cancer cervical Kidney disease Hypertension Grandmother Cancer ovarian cervical Kidney disease Hypertension Grandfather Heart disease paternal had PPM Social History Smoking Status: Never smoker alcohol intake: never substance use type: does not use caffeine: Yes what type of physical activity do you participate in: swimming seatbelt use: always do you feel safe at home: Yes additional social history: [place] [employer] [facility] Pregancy History 6 Elective abortions Hx Para 2 Spontaneous abortions Past Pregnancies Del. DatName GA/WeeksOutcome Route [facility] WeigInfant GLabor LgAnesthesDel LocaProviderFOB e ht en ut tn 09/16/11Gunner 39 live birNSVD 6lbs 7ozMale 18 hoursepiduralPomereneMidwife [facility] l term l Delivery Date: 12/15/14 On 12/22/17 @ 11:30 Gretchen Addison breech, enlarged Delivery Date: 09/16/11 On 12/22/17 @ 11:29 Gretchen Addison No issues during or delivery. Delivery Date: No notes to display HPI 37 WEEK OB: Details: TESSA RODRIGUEZ is a 27 year old who presents for routine OB visit. OB Visit JEWELS Calculator Estimated Delivery Date 05/07/18 Based on LMP (certain) 07/31/17 Current WG 37w 4d Number 1 Expected Delivery Route/Plan TOLAC consent form signed. edcation given. Specific Issue/Plans flu vaccine: declined tdap vaccine: considering rhogam: na LARC form signed: declined labor support person: Neptali pain management: epidural cut cord/dad catch: yes : yes PP control planned: pill or nuvaring discussed possible routes of delivery and associated risks: special requests: [] Initial Weight: 140 lb Date Weight BP Urine PrFHR FuHt Pres MoCTX DilationFetal StVisit NoProviderComments E ot v te GA G Effac lucose ed Visit Notes Visit Date: 04/20/18 No VB, LOF. Doing well. Coni BLAKE. MARYJO Coelho on 04/20/18 Visit Date: 04/13/18 no vb lof good fm no regular ctx, mfm co card- weekly scans with MFM having BPPs weekly Haylie Alfaro MD on 04/13/18 Visit Date: 03/28/18 Celexa has been helpful. No VB, LOF. Good FM Idalmis Moreno NP-C on 03/28/18 Visit Date: 03/14/18 recommend starting celexa Haylie Alfaro MD on 03/14/18 no vb lof good fm no regular ctx. co increased anxiety- Haylie Alfaro MD on 03/14/18 Visit Date: 02/28/18 mfm us visit today- getting weekly visit with them. no vb lof good fm no regular ctx Haylie Alfaro MD on 02/28/18 Visit Date: 02/16/18 saw cardio this morning, following with MFM doing well needs to get appt with nephro. no vb lof good fm Haylie Alfaro MD on 02/16/18 Visit Date: 01/19/18 no vb cramping- co some back pain Haylie Alfaro MD on 01/19/18 Visit Date: 12/22/17 no vb lof cramping has genetic visit with mfm wednesday, normal anatomy scan Haylie Alfaro MD on 12/22/17 Visit Date: 11/24/17 no vb crmaping having anxiety but managing. reviewed history and recommend MFM anatomy ultrasound. discussed TOLAC and will plan on this. Haylie Alfaro MD on 11/25/17 transfer of care from [place] Haylie Alfaro MD on 11/24/17 Diagnostics Diagnostics Labs Hct 34.9 % (37-47) L 02/16/18 Hgb 12.0 g/dl (12.0-15.0) 02/16/18 Chlam trachomat DNA PCR Negative (Negative) 01/19/18 N.gonorrhoeae DNA (PCR) Negative (Negative) 01/19/18 Glucose 1 Hr 50 gm 108 mg/dL (70-140) 02/16/18 Details: HIV: Urine Culture: Sequential Screen: NIPT Screen: ROS [facility] Reports system reviewed and no additional complaints, except as docu GI Denies nausea, Denies vomiting, Denies abdominal pain Exam Const General: cooperative Nutritional Appearance: well nourished GI Palpation: soft, nontender, other (gravid) Assessment AND Plan Problems 1. Encounter for supervision of other normal in third trimester Z34.83 PRR JEWELS 05/07/18 boy Jose C Sweet, ([facility]) Roberto (2 kids) 2. History of Z87.59 kidney issues, poor lung development, shortly after . plan MFM anatomy scan, nl NIPT 3. Previous delivery affecting O34.219 previous then cs for breech, plan TOLAC 4. 36 weeks gestation of Z3A.36 anatomy scan scheduleds/p m consult- Cardio and Nephro appt needed- co managment of care with MFM. Normal BPP and growth. 5. PCK (polycystic kidney disease) Q61.3 mfm cocare Plan Orders placed: none Reviewed of labor precautions, movement/kick counts ACOG trimester education reviewed and updated See problem list details for updated plan of care Gestational age appropriate handout given RTO: 1 week Orders Orders: Coding Level of Care Code Off vis,est,level 3 Diagnoses Encounter for supervision of other normal in third trimester Z34.83 History of Z87.59 Previous delivery affecting O34.219 36 weeks gestation of Z3A.36 PCK (polycystic kidney disease) Q61.3 04/20/18 1209 <Electronically signed by Idalmis SIBLEY> Date Idalmis SIBLEY Cosigner Signature: Date (if applicable) CC: CARDIOLOGY VISIT Observed: 04/20/2018 Status: F Source: [place] REPORT 9:21 AM [facility] REPOSITORY [facility] [address] [place] [address] OFFICE VISIT Date of Service: 04/20/18 MR#: [id number] Acct: [id number] Name: TESSA RODRIGUEZ Rep #: [id number] : 1990 Provider: Milo Medel MD Age/Sex: 27/F Location: [facility] Status: Signed [facility] Chief Complaint: Follow-up visit Details: TESSA RODRIGUEZ, is a 27 F who presents to the office today for a follow-up visit. She is a lady with a family history of polycystic kidney disease who unfortunately has had one previous demise. She is currently here for follow- up visit she did have genetic testing as well as a echocardiogram. She was requested to have a maternal echocardiogram which was performed in February of this year and demonstrated an ejection fraction of 55%. She has been doing well denying any chest pain or shortness of breath or paroxysmal nocturnal dyspnea she is also had no pedal edema and her blood pressure has been under excellent control. Her physical exam today is unremarkable. Her blood pressure is 106/64 mmHg. Intake Vital Signs04/20/18 Height 5 ft 3 in 04/20/18 Weight: 151 lb 04/20/18 Body Mass Index (BMI) 26.7 04/20/18 Blood Pressure 106/64 04/20/18 Respiratory Rate 18 04/20/18 Pulse Rate 90 Intake Visit Reasons: 2 M FU (needs Wed or ) Allergies No Known Allergies Allergy (Verified 04/20/18 08:00) Medications Vits [Prenatabs FA] 1 tab PO DAILY 04/13/17 [History Confirmed 04/13/18] citalopram 20 mg tablet 20 mg PO DAILY #30 tab 03/14/18 [Rx Confirmed 04/13/18] [facility] Medical History Anxiety (Acute) Polycystic kidney disease (Acute) Surgical History delivery delivered (Acute) Family History Mother Cancer cervical Kidney disease Hypertension Grandmother Cancer ovarian cervical Kidney disease Hypertension Grandfather Heart disease paternal had PPM Social History Smoking Status: Never smoker alcohol intake: never substance use type: does not use caffeine: Yes what type of physical activity do you participate in: swimming seatbelt use: always do you feel safe at home: Yes additional social history: [place] [facility] [employer] Const Const: Negative for fatigue, weakness, difficulty sleeping, frequent falls, excessive sweating or headache(s) Eyes Eyes: Negative for loss of peripheral vision, transient loss of vision, blurry vision, tunnel vision or double vision ENT ENT: Negative for headache(s), dizziness, Nosebleed/epistaxis or balance problems Cardio Chest Pain: No Palpitations: No Edema: None Muscle aches with walking: None Resp Respiratory: Negative for SOB with activity, SOB at rest, SOB orthopnea\SOB lying down, paroxysmal nocturnal dyspnea or Cough GI GI: Negative nausea, heartburn, black,tarry stools or vomiting : Negative for hematuria Musc Musc: Negative for balance problems, muscle aches/ myalgia, muscle weakness or joint pain Skin Skin: Negative non-healing lesions, unusual bruising or rash Neuro Neuro: Negative for weakness, frequent falls, headache(s), blurry vision, double vision, dizziness, lightheadedness, orthostatic symptoms, near syncope, syncope or lack of coordination Bunny Hematologic/Lymphatic: Negative for easy bruising or easy bleeding Endo Endo: Negative for fatigue, excessive sweating or increased thirst/drinking Psych Psych: Negative for anxiety or depression Allergy Allergy/Immunology: Negative for hives, Negative for rash Cardiology Exam Const Appearance: cooperative, healthy appearing, well developed, well groomed and no acute distress Nutritional Appearance: well nourished and average body habitus Orientation: alert, awake and oriented x3 Head Head: normal to inspection, normocephalic and atraumatic Ears: hearing grossly normal bilaterally and external ears normal Nose: external nose normal, nasal mucous membranes and turbinates normal, nares normal, septum normal, no nasal discharge Face and Sinus: face symmetric Mouth: oral mucosae normal, tongue normal, oropharynx normal and moist mucous membranes Teeth and gingiva: dentition normal Throat: posterior oropharynx normal, tonsils normal and uvula midline Eyes General: appearance normal, both eyes and all related structures Eyelids: eyelids normal Conjunctivae: conjunctivae normal Pupils: PERRL, normal by confrontation and accommodation normal EOM: EOM intact bilaterally Neck Neck: normal visual inspection, trachea midline and no JVD JVD: +5 Carotids: normal carotid upstroke and bounding pulses Chest Chest inspection: normal inspection of the chest, symmetric chest movement and normal respiratory effort Auscultation: Bilateral: Clear to Auscultation Cardio Palpation: normal PMI Rate: regular rate Rhythm: regular rhythm Heart sounds: S1 normal, S2 normal and normal, physiologic split S2; negative rub, gallop or murmur GI GI: other (gravid) Neuro General: alert, awake, oriented x3, no focal sensory deficit, gait normal and moves all extremities Skin Skin: no rashes or lesions noted Extremities Pulses: Normal: Right Femoral Pulse, Left Femoral Pulse, Right Dorsalis Pedis Pulse, Left Dorsalis Pedis Pulse, Right Posterior Tibial Pulse, Left Posterior Tibial Pulse, Right Radial Pulse, Left Radial Pulse Lower Extremity Edema: None: Bilateral Musculoskel Musculoskeletal: No joint tenderness Psych Psychological: normal affect Assessment AND Plan 1. Encounter for supervision of other normal in third trimester Z34.83 PRR JEWELS 05/07/18 tarsha Sweet ([facility]) Roberto (2 kids) Plan She appears to be doing well at this time with her normal echocardiogram it is reassuring. Her blood pressure is also under good control on no medications. At this juncture I would recommend seeing her on an as-needed basis only. Plan Detail Follow Up prn Coding Level of Care Code Off vis,est,level 3 Diagnoses Encounter for supervision of other normal in third trimester Z34.83 Normal : other normal Trimester: third trimester Coding Level of Care Code Off vis,est,level 3 Diagnoses Encounter for supervision of other normal in third trimester Z34.83 Normal : other normal Trimester: third trimester 04/20/18 0921 <Electronically signed by Milo Medel MD> Date Milo Medel MD Cosigner Signature: Date (if applicable) CC: Haylie Alfaro MD [employer] OFFICE VISIT Observed: 04/13/2018 Status: F Source: [place] REPORT 11:07 AM [facility] Emergency Department [address] [place] [address] OFFICE VISIT Date of Service: 04/13/18 MR#: [id number] Acct: [id number] Name: TESSA RODRIGUEZ Rep #: [id number] : 1990 Provider: Haylie Alfaro MD Age/Sex: 27/F Location: [facility] Status: Signed Intake Vital Signs04/13/18 Height 5 ft 3 in 04/13/18 Weight: 149 lb 04/13/18 Body Mass Index (BMI) 26.4 04/13/18 Blood Pressure 120/76 Intake Visit Reasons: 36 weeks Chief Complaint: est ob Import Export Clerk Required: No Is patient in pain?: No Allergies No Known Allergies Allergy (Verified 04/13/18 10:41) Medications Vits [Prenatabs FA] 1 tab PO DAILY 04/13/17 [History Confirmed 04/13/18] citalopram 20 mg tablet 20 mg PO DAILY #30 tab 03/14/18 [Rx Confirmed 04/13/18] Last Menstral Period: 07/31/17 Zika: Zika virus screening: Positive ([place]) : No PFSH PFSH Medical History Anxiety (Acute) Polycystic kidney disease (Acute) Surgical History delivery delivered (Acute) Family History Mother Cancer cervical Kidney disease Hypertension Grandmother Cancer ovarian cervical Kidney disease Hypertension Grandfather Heart disease paternal had PPM Social History Smoking Status: Never smoker alcohol intake: never substance use type: does not use caffeine: Yes what type of physical activity do you participate in: swimming seatbelt use: always do you feel safe at home: Yes additional social history: [employer] [facility] Pregancy History 6 Elective abortions Hx Para 2 Spontaneous abortions Past Pregnancies Del. DatName GA/WeeksOutcome Route [facility] Garry LgAnesthesDel LocaProviderFOB e ht en ia tn 09/16/11Gunner 39 live birNSVD 6lbs 7ozMale 18 hoursepiduralPomereneMidwife Rufina - ful Hospita l term l Delivery Date: 12/15/14 On 12/22/17 @ 11:30 Gretchen Addsion breech, enlarged Delivery Date: 09/16/11 On 12/22/17 @ 11:29 Gretchen Addison No issues during or delivery. Delivery Date: No notes to display HPI 36 weeks: Details: TESSA RODRIGUEZ is a 27 year old who presents for routine OB visit. OB Visit JEWELS Calculator Estimated Delivery Date 05/07/18 Based on LMP (certain) 07/31/17 Current WG 36w 4d Number 1 Expected Delivery Route/Plan TOLAC consent form signed. edcation given. Specific Issue/Plans flu vaccine: declined tdap vaccine: considering rhogam: na LARC form signed: declined labor support person: Neptali pain management: epidural cut cord/dad catch: yes : yes PP control planned: pill or nuvaring discussed possible routes of delivery and associated risks: special requests: [] Initial Weight: 140 lb Date Weight BP Urine PFHR FuHt Pres MCTX DilatioFetal SVisit NProvideComment rot ov n t ote r s EGA Ef Gluco faced se 119/77 [id number] transfe 8 e r of ca 16 re from w 4d Negati orrvil ve le no v b crmap ing hav ing anx iety bu t manag ing. r eviewed histor y and r ecommen d MFM a natomy ultraso und. d iscusse d TOLAC and wi ll plan on thi s. Visit Notes Visit Date: 04/13/18 no vb lof good fm no regular ctx, mfm co card- weekly scans with MFM having BPPs weekly Haylie Alfaro MD on 04/13/18 Visit Date: 03/28/18 Celexa has been helpful. No VB, LOF. Good FM MARYJO Coelho on 03/28/18 Visit Date: 03/14/18 recommend starting celexa Haylie Alfaro MD on 03/14/18 no vb lof good fm no regular ctx. co increased anxiety- Haylie Alfaro MD on 03/14/18 Visit Date: 02/28/18 mfm us visit today- getting weekly visit with them. no vb lof good fm no regular ctx Haylie Alfaro MD on 02/28/18 Visit Date: 02/16/18 saw cardio this morning, following with MFM doing well needs to get appt with nephro. no vb lof good fm Haylie Alfaro MD on 02/16/18 Visit Date: 01/19/18 no vb cramping- co some back pain Haylie Alfaro MD on 01/19/18 Visit Date: 12/22/17 no vb lof cramping has genetic visit with [facility] wednesday, normal anatomy scan Haylie Alfaro MD on 12/22/17 Visit Date: 11/24/17 no vb crmaping having anxiety but managing. reviewed history and recommend [facility] anatomy ultrasound. discussed TOLAC and will plan on this. Haylie Alfaro MD on 11/25/17 transfer of care from [place] Haylie Alfaro MD on 11/24/17 Diagnostics Diagnostics Labs Hct 34.9 % (37-47) L 02/16/18 Hgb 12.0 g/dl (12.0-15.0) 02/16/18 Pap Smear Positive A 10/27/17 Chlam trachomat DNA PCR Negative (Negative) 01/19/18 N.gonorrhoeae DNA (PCR) Negative (Negative) 01/19/18 Glucose 1 Hr 50 gm 108 mg/dL (70-140) 02/16/18 Details: HIV: Urine Culture: Sequential Screen: NIPT Screen: Results [id number] Office Urine Glucose Negative Last Edit by Janeth Salmon on 04/13/18 10:45 Office Urine Protein Negative Last Edit by Janeth Salmon on 04/13/18 10:45 Assessment AND Plan Problems 1. Anxiety during in third trimester, antepartum O99.343; F41.9 2. History of delivery affecting O34.219 previous then cs for breech, plan TOLAC 3. 36 weeks gestation of Z3A.36 anatomy scan scheduleds/p mfm consult- Cardio and Nephro appt needed- co managment of care with MFM. Normal BPP and growth. 4. PCK (polycystic kidney disease) Q61.3 mfm cocare 5. Encounter for supervision of other normal in third trimester Z34.83 PRR JEWELS 05/07/18 boy Jose C LANI Kee, ([facility]) Roberto (2 kids) 6. History of Z87.59 kidney issues, poor lung development, shortly after . plan MFM anatomy scan, nl NIPT Plan movement and labor precautions reviewed. ACOG trimester education reviewed and updated. see problem list details for updated plan management information and see below for orders placed at this visit. GA appropriate handout given. Orders Orders: Coding Level of Care Code OB Routine Diagnoses Anxiety during in third trimester, antepartum O99.343; F41.9 History of delivery affecting O34.219 36 weeks gestation of Z3A.36 Weeks of gestation: 36 weeks PCK (polycystic kidney disease) Q61.3 Encounter for supervision of other normal in third trimester Z34.83 Normal : other normal Trimester: third trimester History of Z87.59 04/13/18 1107 <Electronically signed by Haylie Alfaro MD> Date Haylie Alfaro MD Cosigner Signature: Date (if applicable) CC: Observed: 04/13/2018 Status: F Source: DERRELL COLÓN, GROUP B 12:00 AM [facility] STREPTOCOCCUS REPOSITORY Comments: VAGINAL RECTAL TIMOTHY Culture Group B Beta Streptococcus is not isolated. Performed By: #### M100.1800 #### [facility] [address] [place], [address] [employer] OFFICE VISIT Observed: 03/28/2018 Status: F Source: DERRELL REPORT 11:00 AM [facility] [address] [place] [address] OFFICE VISIT Date of Service: 03/28/18 MR#: [id number] Acct: [id number] Name: TESSA RODRIGUEZ Rep #: [id number] : 1990 Provider: AMEYA Moreno Age/Sex: 27/F Location: [facility] Status: Signed Intake Vital Signs03/28/18 Height 5 ft 3 in 03/28/18 Weight: 150 lb 03/28/18 Body Mass Index (BMI) 26.5 03/28/18 Blood Pressure 112/80 Intake Visit Reasons: 34 weeks Chief Complaint: est ob Import Export Clerk Required: No Is patient in pain?: No Allergies No Known Allergies Allergy (Verified 03/28/18 10:41) Medications Vits [Prenatabs FA] 1 tab PO DAILY 04/13/17 [History Confirmed 03/28/18] citalopram 20 mg tablet 20 mg PO DAILY #30 tab 03/14/18 [Rx Confirmed 03/28/18] Last Menstral Period: 07/31/17 Zika: Zika virus screening: Negative : No PFSH PFSH Medical History Anxiety (Acute) Polycystic kidney disease (Acute) Surgical History delivery delivered (Acute) Family History Mother Cancer cervical Kidney disease Hypertension Grandmother Cancer ovarian cervical Kidney disease Hypertension Grandfather Heart disease paternal had PPM Social History Smoking Status: Never smoker alcohol intake: never substance use type: does not use caffeine: Yes what type of physical activity do you participate in: swimming seatbelt use: always do you feel safe at home: Yes additional social history: [place] [facility] Pregancy History 6 Elective abortions Hx Para 2 Spontaneous abortions Past Pregnancies Del. DatName GA/WeeksOutcome Route [facility] Hospital[facility] LocaProviderFOB e ht en ia tn 09/16/11Gunner 39 live birNSVD 6lbs 7ozMale 18 hoursepiduralPomereneMidwife [facility] Hosp[facility] l term l Delivery Date: 12/15/14 On 12/22/17 @ 11:30 Gretchen Addison breech, enlarged Delivery Date: 09/16/11 On 12/22/17 @ 11:29 Grecthen Addison No issues during or delivery. Delivery Date: No notes to display HPI 34 weeks: Details: TESSA RODRIGUEZ is a 27 year old who presents for routine OB visit. OB Visit JEWELS Calculator Estimated Delivery Date 05/07/18 Based on LMP (certain) 07/31/17 Current WG 34w 2d Number 1 Expected Delivery Route/Plan TOLAC consent form signed. edcation given. Specific Issue/Plans flu vaccine: declined tdap vaccine: considering rhogam: na LARC form signed: declined labor support person: Roberto pain management: epidural cut cord/dad catch: yes : yes PP control planned: pill or nuvaring discussed possible routes of delivery and associated risks: [] special requests: [] Initial Weight: 140 lb Date Weight BP Urine PrFHR FuHt Pres MoCTX DilationFetal StVisit NoProviderComments E ot v te GA G Effac lucose ed Visit Notes Visit Date: 03/28/18 Celexa has been helpful. No VB, LOF. Good FM MARYJO Coelho on 03/28/18 Visit Date: 03/14/18 recommend starting celexa Haylie Alfaro MD on 03/14/18 no vb lof good fm no regular ctx. co increased anxiety- Haylie Alfaro MD on 03/14/18 Visit Date: 02/28/18 mfm us visit today- getting weekly visit with them. no vb lof good fm no regular ctx Haylie Alfaro MD on 02/28/18 Visit Date: 02/16/18 saw cardio this morning, following with MFM doing well needs to get appt with nephro. no vb lof good fm Haylie Alfaro MD on 02/16/18 Visit Date: 01/19/18 no vb cramping- co some back pain Haylie Alfaro MD on 01/19/18 Visit Date: 12/22/17 no vb lof cramping has genetic visit with m wednesday, normal anatomy scan Haylie Alfaro MD on 12/22/17 Visit Date: 11/24/17 no vb crmaping having anxiety but managing. reviewed history and recommend [facility] anatomy ultrasound. discussed TOLAC and will plan on this. Haylie Alfaro MD on 11/25/17 transfer [place] Haylie Alfaro MD on 11/24/17 Diagnostics Diagnostics Labs Hct 34.9 % (37-47) L 02/16/18 Hgb 12.0 g/dl (12.0-15.0) 02/16/18 Pap Smear Positive A 10/27/17 Obstetrics Ultrasound 09/15/17 Chlam trachomat DNA PCR Negative (Negative) 01/19/18 N.gonorrhoeae DNA (PCR) Negative (Negative) 01/19/18 Glucose 1 Hr 50 gm 108 mg/dL (70-140) 02/16/18 Details: HIV: Urine Culture: Sequential Screen: NIPT Screen: ROS Const Reports system reviewed and no additional complaints, except as docu GI Denies nausea, Denies vomiting, Denies abdominal pain Exam Const General: cooperative Nutritional Appearance: well nourished GI Palpation: soft, nontender, other (gravid) Results [id number] Office Urine Glucose Negative Last Edit by Janeth Salmon on 03/28/18 10:45 Office Urine Protein Negative Last Edit by Janeth Salmon on 03/28/18 10:45 Assessment AND Plan Problems 1. Encounter for supervision of other normal in third trimester Z34.83 PRR JEWELS 05/07/18 boy Jose C Sweet, ([facility]) Roberto (2 kids) 2. History of Z87.59 kidney issues, poor lung development, shortly after . plan MF anatomy scan, nl NIPT 3. Previous delivery affecting O34.219 previous then cs for breech, plan TOLAC 4. 34 weeks gestation of Z3A.34 anatomy scan scheduleds/p [facility] consult- Cardio and Nephro appt needed- co managment of care with MFM. 5. PCK (polycystic kidney disease) Q61.3 mfm cocare Plan Orders placed: none Cocare with MFM-saw them earlier today. Normal US Plans to go to [place] end of this week-car travel discussed Reviewed of labor precautions, movement/kick counts ACOG trimester education reviewed and updated See problem list details for updated plan of care Gestational age appropriate handout given RTO: 2 weeks Orders Orders: Coding Level of Care Code Off vis,est,level 3 Diagnoses Encounter for supervision of other normal in third trimester Z34.83 Normal : other normal Trimester: third trimester History of Z87.59 Previous delivery affecting O34.219 34 weeks gestation of Z3A.34 Weeks of gestation: 34 weeks PCK (polycystic kidney disease) Q61.3 03/28/18 1100 <Electronically signed by Idalmis SIBLEY> Date Idalmis SIBLEY Cosigner Signature: Date (if applicable) CC: [employer] OFFICE VISIT Observed: 03/14/2018 Status: F Source: DERRELL REPORT 10:23 AM [facility] [address] [place] [address] OFFICE VISIT Date of Service: 03/14/18 MR#: [id number] Acct: [id number] Name: TESSA RODRIGUEZ Rep #: [id number] : 1990 Provider: Haylie Alfaro MD Age/Sex: 27/F Location: [facility] Status: Signed Intake Vital Signs03/14/18 Height 5 ft 3 in 03/14/18 Weight: 145 lb 6 oz 03/14/18 Body Mass Index (BMI) 25.7 03/14/18 Blood Pressure 112/80 Intake Visit Reasons: 32 weeks Chief Complaint: est ob Import Export Clerk Required: No Is patient in pain?: No Allergies No Known Allergies Allergy (Verified 03/14/18 10:05) Medications Vits [Prenatabs FA] 1 tab PO DAILY 04/13/17 [History Confirmed 03/14/18] Last Menstral Period: 07/31/17 Zika: Zika virus screening: Negative : No PFSH PFSH Medical History Anxiety (Acute) Polycystic kidney disease (Acute) Surgical History delivery delivered (Acute) Family History Mother Cancer cervical Kidney disease Hypertension Grandmother Cancer ovarian cervical Kidney disease Hypertension Grandfather Heart disease paternal had PPM Social History Smoking Status: Never smoker alcohol intake: never substance use type: does not use caffeine: Yes what type of physical activity do you participate in: swimming seatbelt use: always do you feel safe at home: Yes additional social history: [employer] [facility] Pregancy History 6 Elective abortions Hx Para 2 Spontaneous abortions Past Pregnancies Del. DatName GA/WeeksOutcome Route [facility] LocaProviderFOB e ht en [facility] tn 09/16/11Gunner 39 live birNSVD 6lbs 7ozMale 18 hoursepiduralPomereneMidwife [facility] Hospita l term l Delivery Date: 12/15/14 On 12/22/17 @ 11:30 Gretchen Addison breech, enlarged Delivery Date: 09/16/11 On 12/22/17 @ 11:29 Gretchen Addison No issues during or delivery. Delivery Date: No notes to display HPI 32 weeks: Details: TESSA RODRIGUEZ is a 27 year old who presents for routine OB visit. OB Visit JEWELS Calculator Estimated Delivery Date 05/07/18 Based on LMP (certain) 07/31/17 Current WG 32w 2d Number 1 Expected Delivery Route/Plan TOLAC consent form signed. edcation given. Specific Issue/Plans flu vaccine: declined tdap vaccine: considering rhogam: na LARC form signed: declined labor support person: [] pain management: [] cut cord/dad catch: [] : [] PP control planned: pill or nuvaring discussed possible routes of delivery and associated risks: [] special requests: [] Initial Weight: 140 lb Date Weight BP Urine PFHR FuHt Pres MCTX DilatioFetal SVisit NProvideComment rot ov n t ote r s EGA Ef Gluco faced se 119/77 [id number] transfe 8 e r of ca 16 re from w 4d Negati orrvil ve le no v b crmap ing hav ing anx iety bu t manag ing. r eviewed histor y and r ecommen d MFM a natomy ultraso und. d iscusse d TOLAC and wi ll plan on thi s. Visit Notes Visit Date: 03/14/18 recommend starting celexa Haylie Alfaro MD on 03/14/18 no vb lof good fm no regular ctx. co increased anxiety- Haylie Alfaro MD on 03/14/18 Visit Date: 02/28/18 mf us visit today- getting weekly visit with them. no vb lof good fm no regular ctx Haylie Alfaro MD on 02/28/18 Visit Date: 02/16/18 saw cardio this morning, following with MFM doing well needs to get appt with nephro. no vb lof good fm Haylie Alfaro MD on 02/16/18 Visit Date: 01/19/18 no vb cramping- co some back pain Haylie Alfaro MD on 01/19/18 Visit Date: 12/22/17 no vb lof cramping has genetic visit with mfm wednesday, normal anatomy scan Haylie Alfaro MD on 12/22/17 Visit Date: 11/24/17 no vb crmaping having anxiety but managing. reviewed history and recommend [facility] anatomy ultrasound. discussed TOLAC and will plan on this. Haylie Alfaro MD on 11/25/17 [place] Haylie Alfaro MD on 11/24/17 Diagnostics Diagnostics Labs Hct 34.9 % (37-47) L 02/16/18 Hgb 12.0 g/dl (12.0-15.0) 02/16/18 Pap Smear Positive A 10/27/17 Obstetrics Ultrasound 09/15/17 Chlam trachomat DNA PCR Negative (Negative) 01/19/18 N.gonorrhoeae DNA (PCR) Negative (Negative) 01/19/18 Glucose 1 Hr 50 gm 108 mg/dL (70-140) 02/16/18 Details: HIV: Urine Culture: Sequential Screen: NIPT Screen: Assessment AND Plan Problems 1. History of delivery affecting O34.219 previous then cs for breech, plan TOLAC 2. 32 weeks gestation of Z3A.32 anatomy scan scheduleds/p m consult- Cardio and Nephro appt needed- co managment of care with MFM. 3. PCK (polycystic kidney disease) Q61.3 [facility] cocare 4. Encounter for supervision of other normal in third trimester Z34.83 PRR JEWELS 05/07/18 boy Jose C Sweet, ([facility]) Roberto (2 kids) 5. History of Z87.59 kidney issues, poor lung development, shortly after . plan MFM anatomy scan, nl NIPT 6. 29 weeks gestation of Z3A.29 7. Anxiety during in third trimester, antepartum O99.343; F41.9 Plan movement and labor precautions reviewed. ACOG trimester education reviewed and updated. see problem list details for updated plan management information and see below for orders placed at this visit. GA appropriate handout given. Coding Level of Care Code OB Routine Diagnoses History of delivery affecting O34.219 32 weeks gestation of Z3A.32 Weeks of gestation: 32 weeks PCK (polycystic kidney disease) Q61.3 Encounter for supervision of other normal in third trimester Z34.83 Normal : other normal Trimester: third trimester History of Z87.59 29 weeks gestation of Z3A.29 Anxiety during in third trimester, antepartum O99.343; F41.9 03/14/18 1023 <Electronically signed by Haylie Alfaro MD> Date Haylie Alfaro MD Cosigner Signature: Date (if applicable) CC: [employer] OFFICE VISIT Observed: 02/28/2018 Status: F Source: DERRELL REPORT 10:44 AM [facility] [address] [place] [address] OFFICE VISIT Date of Service: 02/28/18 MR#: [id number] Acct: [id number] Name: TESSA RODRIGUEZ Rep #: [id number] : 1990 Provider: Haylie Alfaro MD Age/Sex: 27/F Location: [facility] Status: Signed Intake Vital Signs02/28/18 Height 5 ft 4 in 02/28/18 Weight: 144 lb 02/28/18 Body Mass Index (BMI) 24.7 02/28/18 Blood Pressure 102/64 Intake Visit Reasons: 30 weeks Import Export Clerk Required: No Is patient in pain?: No Allergies No Known Allergies Allergy (Verified 02/28/18 10:15) Medications Vits [Prenatabs FA] 1 tab PO DAILY 04/13/17 [History Confirmed 02/28/18] Last Menstral Period: 07/31/17 Zika: Zika virus screening: Negative : No PFSH PFSH Medical History Anxiety (Acute) Polycystic kidney disease (Acute) Surgical History delivery delivered (Acute) Family History Mother Cancer cervical Kidney disease Hypertension Grandmother Cancer ovarian cervical Kidney disease Hypertension Grandfather Heart disease paternal had PPM Social History Smoking Status: Never smoker alcohol intake: never substance use type: does not use caffeine: Yes what type of physical activity do you participate in: swimming seatbelt use: always do you feel safe at home: Yes additional social history: [employer] [facility] Pregancy History 6 Elective abortions Hx Para 2 Spontaneous abortions Past Pregnancies Del. DatName GA/WeeksOutcome Route Bt WeigIneduart Garry LgAnesthesDel LocaProviderFOB e ht en ia tn 09/16/11Gunner 39 live birNSVD 6lbs 7ozMale 18 hoursepiduralPomereneMidwife [facility] Hospita l term l Delivery Date: 12/15/14 On 12/22/17 @ 11:30 Gretchen Addison breech, enlarged Delivery Date: 09/16/11 On 12/22/17 @ 11:29 Gretchen Addison No issues during or delivery. Delivery Date: No notes to display HPI 30 weeks: Details: TESSA RODRIGUEZ is a 27 year old who presents for routine OB visit. OB Visit JEWELS Calculator Estimated Delivery Date 05/07/18 Based on LMP (certain) 07/31/17 Current WG 30w 2d Number 1 Expected Delivery Route/Plan TOLAC consent form signed. edcation given. Specific Issue/Plans flu vaccine: declined tdap vaccine: considering rhogam: na LARC form signed: declined labor support person: [] pain management: [] cut cord/dad catch: [] : [] PP control planned: pill or nuvaring discussed possible routes of delivery and associated risks: [] special requests: [] Initial Weight: 140 lb Date Weight BP Urine PFHR FuHt Pres MCTX DilatioFetal SVisit NProvideComment rot ov n t ote r s EGA Ef Gluco faced se 119/77 [id number] transfe 8 e r of ca 16 re from w 4d Negati orrvil ve le no v b crmap ing hav ing anx iety bu t manag ing. r eviewed histor y and r ecommen d MFM a natomy ultraso und. d iscusse d TOLAC and wi ll plan on thi s. Visit Notes Visit Date: 02/28/18 mfm us visit today- getting weekly visit with them. no vb lof good fm no regular ctx Haylie Alfaro MD on 02/28/18 Visit Date: 02/16/18 saw cardio this morning, following with MFM doing well needs to get appt with nephro. no vb lof good fm Haylie Alfaro MD on 02/16/18 Visit Date: 01/19/18 no vb cramping- co some back pain Haylie Alfaro MD on 01/19/18 Visit Date: 12/22/17 no vb lof cramping has genetic visit with mfm wednesday, normal anatomy scan Haylie Alfaro MD on 12/22/17 Visit Date: 11/24/17 no vb crmaping having anxiety but managing. reviewed history and recommend [facility] anatomy ultrasound. discussed TOLAC and will plan on this. Haylie Alfaro MD on 11/25/17 transfer [place] Haylie Alfaro MD on 11/24/17 Diagnostics Diagnostics Labs Hct 34.9 % (37-47) L 02/16/18 Hgb 12.0 g/dl (12.0-15.0) 02/16/18 Pap Smear Positive A 10/27/17 Obstetrics Ultrasound 09/15/17 Chlam trachomat DNA PCR Negative (Negative) 01/19/18 N.gonorrhoeae DNA (PCR) Negative (Negative) 01/19/18 Glucose 1 Hr 50 gm 108 mg/dL (70-140) 02/16/18 Details: HIV: Urine Culture: Sequential Screen: NIPT Screen: Results [id number] Office Urine Glucose Negative Last Edit by Ana Lagunas on 02/28/18 10:21 Office Urine Protein Negative Last Edit by Ana Lagunas on 02/28/18 10:21 Assessment AND Plan Problems 1. History of delivery affecting O34.219 previous then cs for breech, plan TOLAC 2. 30 weeks gestation of Z3A.30 anatomy scan scheduleds/p [facility] consult- Cardio and Nephro appt needed- co managment of care with MF. 3. PCK (polycystic kidney disease) Q61.3 mfm cocare 4. Encounter for supervision of other normal in third trimester Z34.83 PRR JEWELS 05/07/18 boy Jose C Sweet, ([facility]) Roberto (2 kids) 5. History of Z87.59 kidney issues, poor lung development, shortly after . plan MFM anatomy scan, nl NIPT Plan movement and labor precautions reviewed. ACOG trimester education reviewed and updated. see problem list details for updated plan management information and see below for orders placed at this visit. GA appropriate handout given. Orders Orders: Coding Level of Care Code OB Routine Diagnoses History of delivery affecting O34.219 30 weeks gestation of Z3A.30 Weeks of gestation: 30 weeks PCK (polycystic kidney disease) Q61.3 Encounter for supervision of other normal in third trimester Z34.83 Normal : other normal Trimester: third trimester History of Z87.59 02/28/18 1044 <Electronically signed by Haylie Alfaro MD> Date Haylie Alfaro MD Cosigner Signature: Date (if applicable) CC: ECHOCARDIOGRAM COMPLETE Observed: 02/23/2018 Status: F Source: [place] 10:52 AM [facility] REPOSITORY [facility] Cardiovascular Services [address] [place] [id number] Echo Complete 02/23/18 0900 MR#: [id number] Acct: [id number] Name: TESSA RODRIGUEZ Rep #: [id number] : 1990 27 From: Milo Medel MD Attending Dr: Milo Medel MD Status: REG CLI Ordering Dr: Milo Medel MD Date: 02/23/18 Location: CVS Sex: F C Admitted: Reason For Study: congenital heart disease, PCK Procedure This was a 2D Doppler, Color Flow transthoracic echocardiogram. Exam performed in department. Left Ventricle Normal LV size. Left ventricular systolic function is normal. The estimated ejection fraction is 55 %. Normal diastology for age. No regional wall motion abnormalities noted. Right Ventricle Normal RV size. Normal systolic function. Atria Normal left atrium. Normal right atrium. Mitral Valve Normal mitral valve. Tricuspid Valve Normal tricuspid valve. Mild tricuspid valve insufficiency. Pulmonary artery systolic pressure is 34 mmHg. Aortic Valve Normal aortic valve. Pulmonic Valve Normal pulmonic valve. Great Vessels Normal aortic root. The pulmonary artery is normal size. Normal inferior vena cava. Pericardium/Pleural No pericardial effusion. MMode/2D Measurements AND Calculations LVIDd: 4.4 cm IVSd: 0.88 cm Ao root diam: 2.4 cm LVIDs: 2.8 cm LVPWd: 0.92 cm LA dimension: 3.4 cm RVDd: 3.4 cm FS: 36.2 % LAV(MOD-bp): 43.6 ml LA A4 area: 16.6 cm2 RA A4 area: 11.2 cm2 LAV(MOD-bp) Indexed: 26.0 ml/m2 LAV(MOD-sp2): 37.5 ml LAV(MOD-sp4): 48.3 ml Doppler Measurements AND Calculations MV E max prakash: 91.5 cm/sec Lat Peak E' Prakash: 15.9 cm/sec Med Peak E' Prakash: 11.5 cm/sec MV A max prakash: 72.9 cm/sec E/E' lat: 5.7 E/E' med: 7.9 MV E/A: 1.3 Ao V2 max: 128.2 cm/sec LV V1 max: 103.1 cm/sec TR max prakash: 261.0 cm/sec Ao max P.6 mmHg LV V1 max P.3 mmHg TR max P.2 mmHg Interpretation Summary Normal LV size. Left ventricular systolic function is normal. The estimated ejection fraction is 55 %. Mild tricuspid valve insufficiency. Normal diastology for age. Ordering Physician: Milo Medel Referring Physician: Haylie Alfaro Performed By: Khushbu Santos, MARGOT, RVT 02/23/18 105 Date Milo Medel MD CC: No Primary Care Physician; Milo Medel MD Date Dictated: 02/23/18899 Date Transcribed: 02/23/181050 Biomedical [employer] Aide: Signed CBC W/DIFF, AUTOMATED Collected: 02/16/2018 Status: F Source: [place] 11:54 AM [facility] REPOSITORY TYPE CODE TESTS RESULT OUT OF RANGE REFERENCE UNITS LAB L100.1000 4.4-11.0 K/mm3 Normal WBC 6.6 LAB L100.1200 4.2-5.4 M/mm3 Low RBC 3.78 LAB L100.1300 12.0-15.0 g/dl Normal HGB 12.0 LAB L100.1400 37-47 % Low HCT 34.9 LAB L100.1500 81-99 fL Normal MCV 92.3 LAB L100.1600 27.0-32.0 pg Normal MCH 31.7 LAB L100.1700 32-36 g/gl Normal MCHC 34.4 LAB L100.1810 11.6-14.6 % Normal RDW CV 12.9 LAB L100.1820 35.1-43.9 fl Normal RDW SD 42.7 LAB L100.1900 150-450 K/mm3 Normal PLT 167 LAB L100.2000 6.2-12.0 fl Normal MPV 11.0 LAB L100.2100 47-70 % High NEUT% 76.5 LAB L100.2200 19-41 % Low LY% 18.3 LAB L100.2300 0-10 % Normal MONO% 4.5 LAB L100.2400 0-5 % Normal EO% 0.5 LAB L100.2500 0-1 % Normal BASO% 0.2 LAB L100.2550 0.0-0.9 % Normal IM GRAN % 0.000 Result Comment: IG% - Immature Granulocytes (promyelocytes, myelocytes and metamyelocytes) > 1% indicates that a LEFT SHIFT is Present. LAB L100.2620 2.0-7.7 X10 3/uL Normal Absolute Neut 5.1 LAB L100.2720 0.83-4.51 X10 3/ul Normal Absolute Lymph 1.21 Performed By: #### L100.0100 #### [facility] [address] [place] [place], [address] GLUCOSE CHALLENGE GEST Collected: 02/16/2018 Status: F Source: [place] 1H 50G 11:54 AM [facility] REPOSITORY TYPE CODE TESTS RESULT OUT OF RANGE REFERENCE UNITS LAB L501.0250 70-140 mg/dL Normal GLU GEST 108 50g 1H Performed By: #### L501.0250 #### [facility] [address] [place], [address] [employer] OFFICE VISIT Observed: 02/16/2018 Status: F Source: DERRELL REPORT 11:17 AM [facility] REPOSITORY [facility] [address] [place] [address] OFFICE VISIT Date of Service: 02/16/18 MR#: [id number] Acct: [id number] Name: TESSA RODRIGUEZ Rep #: [id number] : 1990 Provider: Haylie Alfaro MD Age/Sex: 27/F Location: [facility] Status: Signed Intake Vital Signs02/16/18 Height 5 ft 3.75 in 02/16/18 Weight: 143 lb 02/16/18 Body Mass Index (BMI) 24.7 02/16/18 Blood Pressure 108/78 Intake Visit Reasons: 28 weeks Chief Complaint: est ob Import Export Clerk Required: No Is patient in pain?: No Allergies No Known Allergies Allergy (Verified 02/16/18 10:57) Medications Vits [Prenatabs FA] 1 tab PO DAILY 04/13/17 [History Confirmed 02/16/18] Last Menstral Period: 07/31/17 Zika: Zika virus screening: Negative : No PFSH PFSH Medical History Anxiety (Acute) Polycystic kidney disease (Acute) Surgical History delivery delivered (Acute) Family History Mother Cancer cervical Kidney disease Hypertension Grandmother Cancer ovarian cervical Kidney disease Hypertension Grandfather Heart disease paternal had PPM Social History Smoking Status: Never smoker alcohol intake: never substance use type: does not use caffeine: Yes what type of physical activity do you participate in: swimming seatbelt use: always do you feel safe at home: Yes additional social history: [employer] [facility] Pregancy History 6 Elective abortions Hx Para 2 Spontaneous abortions Past Pregnancies Del. DatName GA/WeeksOutcome Route [facility] LocaProviderFOB e ht en [facility] 09/16/11Gunner 39 live birNSVD 6lbs 7ozMale 18 hoursepiduralPomereneMidwife [facility] Delivery Date: 12/15/14 On 12/22/17 @ 11:30 Gretchen Addison breech, enlarged Delivery Date: 09/16/11 On 12/22/17 @ 11:29 Gretchen Addison No issues during or delivery. Delivery Date: No notes to display HPI 28 weeks: Details: TESSA RODRIGUEZ is a 27 year old who presents for routine OB visit. OB Visit JEWELS Calculator Estimated Delivery Date 05/07/18 Based on LMP (certain) 07/31/17 Current WG 28w 4d Number 1 Expected Delivery Route/Plan TOLAC Specific Issue/Plans flu vaccine: [] tdap vaccine: [] rhogam: [] LARC form signed: [] labor support person: [] pain management: [] cut cord/dad catch: [] : [] PP control planned: [] discussed possible routes of delivery and associated risks: [] special requests: [] Initial Weight: 140 lb Date Weight BP Urine PrFHR FuHt Pres MoCTX DilationFetal StVisit NoProviderComments E ot v te GA G Effac lucose ed Visit Notes Visit Date: 02/16/18 saw cardio this morning, following with MFM doing well needs to get appt with nephro. no vb lof good fm Haylie Alfaro MD on 02/16/18 Visit Date: 01/19/18 no vb cramping- co some back pain Haylie Alfaro MD on 01/19/18 Visit Date: 12/22/17 no vb lof cramping has genetic visit with mfm wednesday, normal anatomy scan Haylie Alfaro MD on 12/22/17 Visit Date: 11/24/17 no vb crmaping having anxiety but managing. reviewed history and recommend MFM anatomy ultrasound. discussed TOLAC and will plan on this. Haylie Alfaro MD on 11/25/17 [place] Haylie Alfaro MD on 11/24/17 Diagnostics Diagnostics Labs Blood Type A POSITIVE 06/06/17 Hct 39.4 % (37-47) 06/06/17 Hgb 13.7 g/dl (12.0-15.0) 06/06/17 Pap Smear Positive A 10/27/17 Obstetrics Ultrasound 09/15/17 Chlam trachomat DNA PCR Negative (Negative) 01/19/18 N.gonorrhoeae DNA (PCR) Negative (Negative) 01/19/18 Details: HIV: Urine Culture: Sequential Screen: NIPT Screen: Assessment AND Plan Problems 1. History of delivery affecting O34.219 previous then cs for breech, plan TOLAC 2. 28 weeks gestation of Z3A.28 s/p mfm consult- Cardio and Nephro appt needed- co managment of care with MFM. 3. Encounter for supervision of other normal in third trimester Z34.83 PRR JEWELS 05/07/18 boy Jose C Sweet, ([facility]) Roberto (2 kids) 4. History of Z87.59 kidney issues, poor lung development, shortly after . plan MFM anatomy scan, nl NIPT 5. 29 weeks gestation of Z3A.29 6. PCK (polycystic kidney disease) Q61.3 mfm cocare Plan movement and labor precautions reviewed. ACOG trimester education reviewed and updated. see problem list details for updated plan management information and see below for orders placed at this visit. [place] appropriate handout given. Orders Orders: Medications New: Coding Level of Care Code OB Routine Diagnoses History of delivery affecting O34.219 28 weeks gestation of Z3A.28 Weeks of gestation: 28 weeks Encounter for supervision of other normal in third trimester Z34.83 Normal : other normal Trimester: third trimester History of Z87.59 29 weeks gestation of Z3A.29 PCK (polycystic kidney disease) Q61.3 02/16/18 1117 <Electronically signed by Haylie Alfaro MD> Date Haylie Alfaro MD Cosign Signature: Date (if applicable) CC: CARDIOLOGY VISIT Observed: 02/16/2018 Status: F Source: [place] REPORT 10:02 AM [facility] REPOSITORY [facility] [address] [place] [address]. [address] [place] [address] OFFICE VISIT Date of Service: 02/16/18 MR#: [id number] Acct: [id number] Name: TESSA RODRIGUEZ Rep #: [id number] : 1990 Provider: Milo Medel MD Age/Sex: 27/F Location: [facility] Status: Signed [facility] Chief Complaint: Initial evaluation. Details: TESSA RODRIGUEZ, is a 27 F who presents to the office today for an initial evaluation. She is a pleasant 27-year-old lady who is currently approximately 29 weeks with a family history of polycystic kidney disease. She did unfortunately have a previous demise due to polycystic kidney disease. She has 1 live . She is been doing quite well denying any chest pain or shortness of breath or paroxysmal nocturnal dyspnea or pedal edema. Her blood pressure has been under excellent control. She was recently seen by the maternal- medicine group who authorized maternal genetic testing as well as a echocardiogram. Maternal echocardiogram was also recommended as well as follow-up. Her physical exam here today demonstrates clear lung wallis regular rate and rhythm and no pedal edema her blood pressure is under excellent control her electrocardiogram done here today demonstrates normal sinus rhythm with a rate of 89 bpm and no acute changes. Intake Vital Signs02/16/18 Height 5 ft 3 in 02/16/18 Weight: 142 lb 02/16/18 Body Mass Index (BMI) 25.1 02/16/18 Blood Pressure 110/60 02/16/18 Respiratory Rate 18 02/16/18 Pulse Rate 78 Intake Visit Reasons: OBG ref'd d/t high risk, polycystic kidney dis Allergies No Known Allergies Allergy (Verified 02/16/18 09:27) Medications Vits [Prenatabs FA] 1 tab PO DAILY 04/13/17 [History Confirmed 02/16/18] [facility] Medical History Anxiety (Acute) Polycystic kidney disease (Acute) Surgical History delivery delivered (Acute) Family History Mother Cancer cervical Kidney disease Hypertension Grandmother Cancer ovarian cervical Kidney disease Hypertension Grandfather Heart disease paternal had PPM Social History Smoking Status: Never smoker alcohol intake: never substance use type: does not use caffeine: Yes what type of physical activity do you participate in: swimming seatbelt use: always do you feel safe at home: Yes additional social history: [facility] Const Const: Negative for fatigue, weakness, difficulty sleeping, frequent falls, excessive sweating or headache(s) Eyes Eyes: Negative for loss of peripheral vision, transient loss of vision, blurry vision, tunnel vision or double vision ENT ENT: Negative for headache(s), dizziness, Nosebleed/epistaxis or balance problems Cardio Palpitations: No Edema: None Muscle aches with walking: None Resp Respiratory: Negative for SOB with activity, SOB at rest, SOB orthopnea\SOB lying down, paroxysmal nocturnal dyspnea or Cough GI GI: Negative nausea, heartburn, black,tarry stools or vomiting : Negative for hematuria Musc Musc: Negative for balance problems, muscle aches/ myalgia, muscle weakness or joint pain Skin Skin: Negative non-healing lesions, unusual bruising or rash Neuro Neuro: Negative for weakness, frequent falls, headache(s), blurry vision, double vision, dizziness, lightheadedness, orthostatic symptoms, near syncope, syncope or lack of coordination Bunny Hematologic/Lymphatic: Negative for easy bruising or easy bleeding Endo Endo: Negative for fatigue, excessive sweating or increased thirst/drinking Psych Psych: Negative for anxiety or depression Allergy Allergy/Immunology: Negative for hives, Negative for rash Cardiology Exam Const Appearance: cooperative, healthy appearing, well developed, well groomed and no acute distress Nutritional Appearance: well nourished and average body habitus Orientation: alert, awake and oriented x3 Head Head: normal to inspection, normocephalic and atraumatic Ears: hearing grossly normal bilaterally and external ears normal Nose: external nose normal, nasal mucous membranes and turbinates normal, nares normal, septum normal, no nasal discharge Face and Sinus: face symmetric Mouth: oral mucosae normal, tongue normal, oropharynx normal and moist mucous membranes Teeth and gingiva: dentition normal Throat: posterior oropharynx normal, tonsils normal and uvula midline Eyes General: appearance normal, both eyes and all related structures Eyelids: eyelids normal Conjunctivae: conjunctivae normal Pupils: PERRL, normal by confrontation and accommodation normal EOM: EOM intact bilaterally Neck Neck: normal visual inspection, trachea midline and no JVD JVD: +5 Carotids: normal carotid upstroke and bounding pulses Chest Chest inspection: normal inspection of the chest, symmetric chest movement and normal respiratory effort Auscultation: Bilateral: Clear to Auscultation Cardio Palpation: normal PMI Rate: regular rate Rhythm: regular rhythm Heart sounds: S1 normal, S2 normal and normal, physiologic split S2; negative rub, gallop or murmur GI GI: normal to inspection, soft, no hepatosplenomegaly and bowel sounds present Neuro General: alert, awake, oriented x3, no focal sensory deficit, gait normal and moves all extremities Skin Skin: no rashes or lesions noted Extremities Pulses: Normal: Right Femoral Pulse, Left Femoral Pulse, Right Dorsalis Pedis Pulse, Left Dorsalis Pedis Pulse, Right Posterior Tibial Pulse, Left Posterior Tibial Pulse, Right Radial Pulse, Left Radial Pulse Lower Extremity Edema: None: Bilateral Musculoskel Musculoskeletal: No joint tenderness Psych Psychological: normal affect Assessment AND Plan 1. PCK (polycystic kidney disease) Q61.3 mfm cocare Plan She does have a history of asymptomatic polycystic kidney disease. My recommendation at this time will be for us to obtain an echocardiogram to assess her left ventricular function. She should continue to monitor her blood pressures carefully. My recommendation would be for us to see her on at least one visit prior to her delivery. 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) Coding Level of Care Code Off vis,new,level 3 Diagnoses PCK (polycystic kidney disease) Q61.3 Coding Level of Care Code Off vis,new,level 3 Diagnoses PCK (polycystic kidney disease) Q61.3 02/16/18 1002 <Electronically signed by Milo Medel MD> Date Milo Medel MD Cosigner Signature: Date (if applicable) CC: Haylie Alfaro MD 12 LEAD EKG PERFORMED Observed: 02/16/2018 Status: F Source: [place] [facility] 9:37 AM [facility] REPOSITORY [facility] [address] [place] [address] 12 Lead EKG performed by [facility] 02/16/18 0922 MR#: [id number] Acct: [id number] Name: TESSA RODRIGUEZ Rep #: [id number] : 1990 27 From: Milo Medel MD Attending Dr: Milo Medel MD Status: DEP AMB Ordering Dr: Milo Medel MD Date: 02/16/18 Location: [facility] Sex: F C Admitted: BMS/12 Lead EKG performed by [facility] ECG Report Interpretation Sinus Rhythm WITHIN NORMAL LIMITSElectronically signed on 04/20/2018 at 16:32 by Milo Medelwood Software Version [id number] 04/20/18 1636 Date Milo Medel MD CC: No Primary Care Physician Date Dictated: 02/16/18921 Date Transcribed: 02/16/18921 Biomedical Engineering Aide: CO Signed PROGRESS NOTE Observed: 01/31/2018 Status: COMPLETED Source: [place] 11:00 AM [facility] REPOSITORY Prior with oligo, ADPKD, and pulmonary hypoplasia and . She is highly anxious and would like increased surveillance. Will recheck SÁNCHEZ and kidneys in 2 weeks, biometry every 4 and weekly BPP starting at [address]/NG [facility] BY PCR Collected: 01/19/2018 Status: F Source: [place] 3:26 PM [facility] REPOSITORY Order Comment: Comments: urine Comments: urine TYPE CODE TESTS RESULT OUT OF RANGE REFERENCE UNITS LAB L8200.2100 Negative Normal Chlam Negative Trac PCR LAB L8200.2200 Negative Normal NG by Negative PCR Performed By: #### L8200.2000 #### [facility] [address] [place], [address] [employer] OFFICE VISIT Observed: 01/19/2018 Status: F Source: [place] RE[place] 11:09 AM [facility] REPOSITORY [facility] 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: No Is patient in pain?: No Allergies No Known Allergies Allergy (Verified 01/19/18 10:43) Medications Vits [Prenatabs FA] 1 tab PO DAILY 04/13/17 [History Confirmed 12/22/17] Last Menstral Period: 07/31/17 Zika: Zika virus screening: Negative : No PFSH PFSH Medical History Anxiety (Acute) Polycystic kidney disease (Acute) Surgical History delivery delivered (Acute) Family History Mother Cancer cervical Kidney disease Hypertension Grandmother Cancer ovarian cervical Kidney disease Hypertension Social History Smoking Status: Never smoker alcohol intake: never substance use type: does not use caffeine: Yes what type of physical activity do you participate in: swimming seatbelt use: always do you feel safe at home: Yes additional social history: [employer] [facility] Pregancy History 6 Elective abortions Hx Para 2 Spontaneous abortions Past Pregnancies Del. DatName GA/WeeksOutcome Route [facility] LocaProviderFOB e ht en [facility] 09/16/11Gunner 39 live birNSVD 6lbs 7ozMale 18 hoursepiduralPomereneMidSouthern [facility] Delivery Date: 12/15/14 On 12/22/17 @ 11:30 Gretchen Addison breech, enlarged Delivery Date: 09/16/11 On 12/22/17 @ 11:29 Gretchen Addison No issues during or delivery. Delivery Date: No notes to display HPI 24 weeks: Details: TESSA RODRIGUEZ is a 27 year old who presents for routine OB visit. OB Visit JEWELS Calculator Estimated Delivery Date 05/07/18 Based on LMP (certain) 07/31/17 Current WG 24w 4d Number 1 Expected Delivery Route/Plan TOLAC Specific Issue/Plans flu vaccine: [] tdap vaccine: [] rhogam: [] LARC form signed: [] labor support person: [] pain management: [] cut cord/dad catch: [] : [] PP control planned: [] discussed possible routes of delivery and associated risks: [] special requests: [] Initial Weight: 140 lb Date Weight BP Urine PrFHR FuHt Pres MoCTX DilationFetal StVisit NoProviderComments E ot v te GA G Effac lucose ed Visit Notes Visit Date: 01/19/18 no vb cramping- co some back pain Haylie Alfaro MD on 01/19/18 Visit Date: 12/22/17 no vb lof cramping has genetic visit with mfm wednesday, normal anatomy scan Haylie Alfaro MD on 12/22/17 Visit Date: 11/24/17 no vb crmaping having anxiety but managing. reviewed history and recommend MFM anatomy ultrasound. discussed TOLAC and will plan on this. Haylie Alfaro MD on 11/25/17 transfer of care [place] Haylie Alfaro MD on 11/24/17 Diagnostics Diagnostics Labs Blood Type A POSITIVE 06/06/17 Hct 39.4 % (37-47) 06/06/17 Hgb 13.7 g/dl (12.0-15.0) 06/06/17 Pap Smear Positive A 10/27/17 Obstetrics Ultrasound 09/15/17 Details: HIV: Urine Culture: Sequential Screen: NIPT Screen: Results [id number] Office Urine Glucose Negative Last Edit by Janeth Salmon on 01/19/18 10:50 Office Urine Protein Negative Last Edit by Janeth Salmon on 01/19/18 10:50 Assessment AND Plan Problems 1. History of delivery affecting O34.219 previous then cs for breech, plan TOLAC 2. History of Z87.59 kidney issues, poor lung development, shortly after . plan MFM anatomy scan, nl NIPT 3. Encounter for supervision of other normal in second trimester Z34.82 PRR JEWELS 05/07/18 boy Jose C Sweet ([facility]) Rufina (2 kids) 4. 24 weeks gestation of Z3A.24 s/p mfm consult Plan ACOG trimester education reviewed and updated. see problem list details for updated plan management information and see below for orders placed at this visit. [place] appropriate handout given. Orders Orders: Coding Level of Care Code OB Routine Diagnoses History of delivery affecting O34.219 History of Z87.59 Encounter for supervision of other normal in second trimester Z34.82 Normal : other normal Trimester: second trimester 24 weeks gestation of Z3A.24 Weeks of gestation: 24 weeks 01/19/18 1109 <Electronically signed by Hyalie Alfaro MD> Date Haylie Alfaro MD Cosigner Signature: Date (if applicable) CC: PROGRESS NOTE Observed: 01/11/2018 Status: COMPLETED Source: [place] 9:30 AM [facility] Tessa Rodriguez is a new patient who's primary care provider is No Primary Care, MD Yulissa here for evaluation of heart. Chief Complaint Patient presents with ECHO Abnormal appearing 4 chamber view-dilated appearing coronary sinus History of Presenting Problem HPI Thank you for consulting us regarding Tessa Rodriguez. She is referred to the cardiology clinic at [facility] for evaluation of the heart. I saw this patient in the echocardiogram clinic on 01/11/2018. Patient was referred to the echocardiographic clinic for a echocardiogram since there was a question/suspicion of left superior vena cava and abnormal 4 chamber views on on OB ultrasound. Cardiac ROS Review of Systems See the full note Past Medical History Past Medical History: Diagnosis Date anxitey Chronic kidney disease Liver disease cyst on liver PCOS (polycystic ovarian syndrome) UTI (urinary tract infection) Vaginal Pap smear, abnormal normal with this Past Surgical History: Procedure Laterality Date SECTION COLPOSCOPY Medications: Outpatient Encounter Prescriptions as of 01/11/2018 Medication Sig Dispense Refill [place]-3 Fatty Acids (FISH OIL) 1000 MG CAPS capsule Take by mouth daily Vit-Fe Fumarate-FA ( VITAMIN PO) Take by mouth daily No facility-administered encounter medications on file as of 01/11/2018. 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 Weight - Scale: 62.1 kg (per patient) Facility age limit for growth percentiles is 20 years. Height: 162.6 cm (per patient) Facility age limit for growth percentiles is 20 years. Physical Exam Patient is here for the echocardiogram. Physical exam was deferred. Studies: echocardiogram: Position; Vertex. 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 Atrioventricular and ventriculoarterial concordance seen. Atria: Normal left and right atrial size. There was a large patent foramen ovale with [id number] shunt. Tricuspid valve: There was normal tricuspid valve. There was normal Doppler across the tricuspid valve. Mitral valve: Normal mitral valve. There was normal Doppler across the mitral valve. Right ventricle: There was normal size and systolic function. Left ventricle: There was normal size and systolic function. Aortic valve: Normal aortic valve. There was normal Doppler across the aortic valve seen. Pulmonary valve: Normal pulmonary valve. There was normal Doppler across the pulmonary valve seen. Ventricular septum: There was no obvious ventricular septal defect seen. Main pulmonary artery: Normal main pulmonary artery. Pulmonary arteries: Good size branch pulmonary arteries. Pulmonary veins: There were at least 2/4 pulmonary veins seen entering into the left atrium. Systemic venous return: There was normal systemic venous return seen. Aortic arch: Aortic arch was not well seen, however normal 3-vessel view. Ductal arch: Patent Ductal arch. 3-vessel view: There was normal 3-vessel view. Ductus venosus: There was normal flow pattern seen in the ductus venosus. Umbilical artery and umbilical vein. There was normal pulse Doppler in umbilical artery and umbilical vein. Rhythm: There was sinus rhythm. There was no arrhythmia noted. Impression and recommendations. 1)Technically difficult study due to limited acoustic windows, movements and maternal body habitus. 2) Aortic arch was not well seen, however normal 3-vessel view. No left superior vena cava was noted. Otherwise normal echocardiogram. 3) I have discussed the limitations of echocardiographic examination, that is likely to miss small ventricular septal defects as well as mild semilunar valve stenosis. Patent foramen ovale and patent ductus arteriosus are normal findings in utero. Coarctation of aorta is difficult to diagnose pre natally in the presence of patent ductus arteriosus. 4) I have also discussed echocardiographic findings in detail including circulation, pathophysiology of Patent foramen ovale and patent ductus arteriosus, prognosis, medical and surgical treatments, follow up echocardiograms and follow ups. 5) I would like to see in cardiology clinic here at [facility], 1-2 moths after the or earlier if cardiac condition/status changes in any way. Counseling and/or coordination of care was greater than 35 minutes which is more than 50% of the total time of 60 minutes spent on the encounter. PROGRESS NOTE Observed: 01/03/2018 Status: COMPLETED Source: [place] 12:45 PM [facility] The total patient time of the visit was 45 minutes, of which greater than 50% of the time was spent counseling and coordinating care. PROGRESS NOTE Observed: 12/27/2017 Status: COMPLETED Source: [place] 2:00 PM [facility] Reason for Consult/Chief Concern: Tessa is being seen for genetic evaluation of polycystic kidney disease and a family history of polycystic kidney disease. Tessa is 21 weeks , due in April of 2018. Primary Care Doctor: No Primary Care, MD Yulissa History of Present Illness (Location, Quality, Severity, Duration, Timing, Context. Modifying Factors, Associated Signs & Symptoms): Tessa Rodriguez is a 27-year-old woman, currently 21 weeks , who presents for follow-up genetic evaluation of polycystic kidney disease and a family history of presumed autosomal dominant polycystic kidney disease in her mother and maternal grandmother. Tessa was previously seen in Genetics in the fall of 2014 following the of her son, Mark, who is a maternal half sibling to the current . Tessa's with Mark was unremarkable aside from some slightly low amniotic fluid levels. Mark had had a normal anatomy ultrasound at around 20 weeks of gestation. At , however, he developed respiratory failure and was discovered to have pulmonary hypoplasia and bilateral polycystic kidneys. This clinical presentation was concerning for autosomal recessive polycystic kidney disease and so the NICU team sent PKHD1 molecular testing. A karyotype and chromosomal microarray analysis were also sent. The PKHD1 molecular testing, karyotype, and chromosomal microarray analysis were all normal. Subsequently, Tessa had an ultrasound of her kidneys at her OB's office and she was found to have two cysts on each kidney. Genetic testing for Tessa (PKD1 and PKD2) was recommended when she was last seen in 2014 but not completed. Tessa has an appointment next week to establish care in Maternal Medicine. Past Medical History: Diagnosis Polycystic kidney disease Family history of polycystic kidney disease Development: Tessa has no history of developmental concerns. Family History: Previously reviewed and on file in Genetics. Reviewed today Relevant family history is significant for: Siblings: Tessa previously had two children with her ex- - Kee, age 6, who is reportedly healthy and has had normal renal ultrasound, and Mark, who in [facility]'s NICU the day after from complications related to polycystic kidney disease. Tessa has had three pregnancies with her current partner, Yaw, including a chemical , an early miscarriage, and this . Tessa was diagnosed prior to this with hormone imbalances and has been taking progesterone (reporteding feeling better). Maternal Side: Tessa's family history is significant for polycystic kidney disease in her mother and maternal grandmother. Tessa suspects that her mother may have had genetic testing, but she is not currently in contact with her. Tessa's mother became symptomatic around the age of 25. Paternal Side: Yaw, the father of the current , has two healthy children (8 year old girl and 6 year old boy). Yaw is reportedly healthy and has a noncontributory family history. Tessa's ethnicity is [place]o and Yaw's ethnicity is [place]. There is no known consanguinity, and Yaw is not related to Mark's father. Review of Systems Constitutional: Negative Vision: Positive for near-sightedness - wears glasses ENT: Negative Head and Neck: Negative Endocrine: Negative Hematology/Lymphatic: Negative Respiratory: Negative Cardiovascular: Negative Gastrointestinal: Negative : Positive for cysts on kidneys Skin: Positive for eczema Musculoskeletal: Negative Neuro: Negative Allergy/Immun: Negative Physical Examination: Full physical examination not completed Vitals: BP 112/67 Pulse 76 Ht 161.3 cm Wt 61.3 kg BMI 23.56 kg/m General Appearance: Well-appearing; well nourished; no acute distress; nondysmorphic Impression: Tessa Rodriguez is a 27-year-old woman with 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 ADPKD is generally a late-onset multisystem disorder characterized by: bilateral renal cysts; cysts in other organs including the liver, pancreas, and arachnoid membrane; vascular abnormalities including intracranial aneurysms, dilatation of the aortic root, and dissection of the thoracic aorta; mitral valve prolapse; and abdominal wall hernias. ?Renal manifestations include hypertension, renal pain, and renal insufficiency. Approximately 50% of individuals with ADPKD have end-stage renal disease (ESRD) by age 60 years. The prevalence of intracranial aneurysms is higher in those with a positive family history of aneurysms or subarachnoid hemorrhage (22%) than in those without such a family history (6%). MRI screening for intracranial aneurysms is only recommended for those determined to be at high risk. Mitral valve prolapse, the most common valvular abnormality, occurs in up to 25% of affected individuals. An echocardiogram is only recommended in individuals with a heart murmur. ?In approximately 78% of individuals with ADPKD, pathogenic variants in PKD1 are causative; in approximately 15% pathogenic variants in PKD2 are causative; other rarer causes include pathogenic variants in GANAB and DNAJB11. Testing of adults at risk permits early detection and treatment of complications and associated disorders.? Rarely (~2% of cases), early-onset PKD (renal cysts detected in utero and occasional demise) in a family with otherwise typical ADPKD has been described. This presentation has been associated with inheritance of a typical pathogenic variant and a hypomorphic pathogenic variant in trans configuration. Coinheritance of a PKD1 and an HNF1B pathogenic variant can also result in early-onset PKD. Therefore, it seems likely that Mark's father carries either a hypomorphic pathogenic variant or an HNF1B pathogenic variant. Mutations in HNF1B were initially associated with renal cysts and diabetes syndrome (RCAD). More recently, however, mutations in HNF1B have also been associated with congenital anomalies of the kidney and urinary tract, including hypodysplastic kidneys and unilateral multicystic dysplastic kidneys, in patients with no evidence of diabetes. Tessa reports that one of Mark's father's relatives has a congenital anomaly of the kidney/urinary tract. We discussed that since her current is with a different partner I think the risk of early-onset PKD for this is low but that close monitoring of the is recommended. We also discussed the rare scenario in which an individual affected with ADPKD is also a carrier of a recessive condition associated with early-onset polycystic kidney disease and that if this were the explanation for Mark's presentation the risk to this would also be low since this is with a different partner. Finally, we discussed that although Mark's PKHD1 molecular testing was normal his testing does not rule out that she may be a carrier of ARPKD. Tessa is interested in learning as much as possible about her risk to have a child with any form of polycystic kidney disease and so we discussed the option of a comprehensive gene panel which evaluates the genes associated with ADPKD, ARPKD, and other genetic conditions associated with polycystic kidneys. We discussed the possibility of variants of uncertain significance and reviewed that we would not test a or unaffected family members for such variants of uncertain significance. After a discuss of the benefits and limitations of genetic testing Tessa elected to proceed. Recommendations and Plan: 1. [facility]'s Polycystic Kidney Disease and Related Disorders panel - will request insurance prior authorization first 2. Follow-up with [facility] as already scheduled 3. Nephrology referral also provided Follow-up: 2-4 weeks after the above genetic testing is drawn Preliminary information is recorded by clinical staff. Recorded information was reviewed for accuracy and edited by Hilda Steve MD who confirmed the chief complaint, personally evaluated the patient and obtained the HPI. Counseling and/or coordination of care (face to face) was greater than 35 minutes which is more than the 50% of the total time of 40 minutes spent on the encounter. [employer] OFFICE VISIT Observed: 12/22/2017 Status: F Source: [place] 11:39 AM [facility] Department [address] [place] [address] OFFICE VISIT Date of Service: 12/22/17 MR#: [id number] Acct: [id number] Name: TESSA RODRIGUEZ Rep #: [id number] : 1990 Provider: Haylie Alfaro MD Age/Sex: 27/F Location: [facility] Status: Signed Intake Vital Signs12/22/17 Height 5 ft 4 in 12/22/17 Weight: 135 lb 2 oz 12/22/17 Body Mass Index (BMI) 23.1 12/22/17 Blood Pressure 104/69 Intake Visit Reasons: 20 weeks Import Export Clerk Required: No Is patient in pain?: No Allergies No Known Allergies Allergy (Verified 12/22/17 11:25) Medications Vits [Prenatabs FA] 1 tab PO DAILY 04/13/17 [History Confirmed 12/22/17] Last Menstral Period: 07/31/17 Zika: Zika virus screening: Negative : No PFSH PFSH Medical History Anxiety (Acute) Polycystic kidney disease (Acute) Surgical History delivery delivered (Acute) Family History Mother Cancer cervical Kidney disease Hypertension Grandmother Cancer ovarian cervical Kidney disease Hypertension Social History Smoking Status: Never smoker alcohol intake: never substance use type: does not use caffeine: Yes what type of physical activity do you participate in: swimming seatbelt use: always do you feel safe at home: Yes additional social history: [place] [facility] Pregancy History 6 Elective abortions Hx Para 2 Spontaneous abortions Past Pregnancies Del. DatName GA/WeeksOutcome [facility] LgAnesthesDel LocaProviderFOB e ht en [facility] 09/16/11Gunner 39 live birNSVD 6lbs 7ozMale 18 hoursepiduralPomereneMidwife [facility] l Delivery Date: 12/15/14 On 12/22/17 @ 11:30 Gretchen Addison breech, enlarged Delivery Date: 09/16/11 On 12/22/17 @ 11:29 Gretchen Addison No issues during or delivery. Delivery Date: No notes to display HPI 20 weeks: Details: TESSA RODRIGUEZ is a 27 year old who presents for routine OB visit. OB Visit JEWELS Calculator Estimated Delivery Date 05/07/18 Based on LMP (certain) 07/31/17 Current WG 20w 4d Number 1 Initial Weight: Not Recorded Date Weight BP Urine PFHR FuHt Pres MCTX DilatioFetal SVisit NProvideComment rot ov n t ote r s EGA Ef Gluco faced se 119/77 [id number] transfe 8 e r of ca 16 re from w 4d Negati orrvil ve le no v b crmap ing hav ing anx iety bu t manag ing. r eviewed histor y and r ecommen d MFM a natomy ultraso und. d iscusse d TOLAC and wi ll plan on thi s. Visit Notes Visit Date: 12/22/17 no vb lof cramping has genetic visit with [facility] wednesday, normal anatomy scan Haylie Alfaro MD on 12/22/17 Visit Date: 11/24/17 no vb crmaping having anxiety but managing. reviewed history and recommend [facility] anatomy ultrasound. discussed TOLAC and will plan on this. Haylie Alfaro MD on 11/25/17 transfer of care from [place] Haylie Alfaro MD on 11/24/17 Diagnostics Diagnostics Labs Blood Type A POSITIVE 06/06/17 Hct 39.4 % (37-47) 06/06/17 Hgb 13.7 g/dl (12.0-15.0) 06/06/17 Pap Smear Positive A 10/27/17 Obstetrics Ultrasound 09/15/17 Details: HIV: Urine Culture: Sequential Screen: NIPT Screen: Results [id number] Office Urine Glucose Negative Last Edit by Gretchen Addison on 12/22/17 11:36 Office Urine Protein Negative Last Edit by Gretchen Addison on 12/22/17 11:36 Assessment AND Plan Problems 1. Encounter for supervision of other normal in second trimester Z34.82 JEWELS 05/07/18 boy LANI Kee, ([facility]) Rufina (2 kids) NEEDS GC/C AT NEXT APPOINTMENT 2. History of Z87.59 kidney issues, poor lung development, shortly after . plan MFM anatomy scan, nl NIPT 3. History of delivery affecting O34.219 previous then cs for breech, plan TOLAC Plan ACOG trimester education reviewed and updated. see problem list details for updated plan management information and see below for orders placed at this visit. GA appropriate handout given. Orders Orders: Coding Level of Care Code OB Routine Diagnoses Encounter for supervision of other normal in second trimester Z34.82 Normal : other normal Trimester: second trimester History of Z87.59 History of delivery affecting O34.219 12/22/17 1139 <Electronically signed by Haylie Alfaro MD> Date Haylie Alfaro MD Cosigner Signature: Date (if applicable) CC: PROGRESS NOTE Observed: 12/06/2017 Status: COMPLETED Source: [place] 12:40 PM [facility] Referral from Dr. Donaldson to [facility] due to family history of polycystic kidney disease. Spoke with pt who desires appointment 01/03 for follow up anatomy and echocardiogram. Will mail appointment information and directions. [employer] OFFICE VISIT Observed: 11/25/2017 Status: F Source: [place] 12:46 AM [facility] REPOSITORY [facility] [address] [place] [address] OFFICE VISIT Date of Service: 11/24/17 MR#: [id number] Acct: [id number] Name: TESSA RODRIGUEZ Rep #: [id number] : 1990 Provider: Haylie Alfaro MD Age/Sex: 27/F Location: [facility] Status: Signed Intake Vital Signs11/24/17 Height 5 ft 4 in 11/24/17 Blood Pressure 119/77 Intake Visit Reasons: 16 WEEK TRANSFER FROM [facility] Chief Complaint: Transfer OB Import Export Clerk Required: No Is patient in pain?: No Allergies No Known Allergies Allergy (Verified 11/24/17 11:07) Medications Vits [Prenatabs FA] 1 tab PO DAILY 04/13/17 [History Confirmed 06/06/17] Last Menstral Period: 07/31/17 Zika: Zika virus screening: Negative : No PFSH PFSH Medical History Anxiety (Acute) Polycystic kidney disease (Acute) Surgical History delivery delivered (Acute) Family History Mother Cancer cervical Kidney disease Hypertension Grandmother Cancer ovarian cervical Kidney disease Hypertension Social History Smoking Status: Never smoker alcohol intake: never substance use type: does not use caffeine: Yes what type of physical activity do you participate in: swimming seatbelt use: always do you feel safe at home: Yes additional social history: [employer] [facility] Pregancy History 6 Elective abortions Hx Para 2 Spontaneous abortions Past Pregnancies Del. DateName GA/Weeks Outcome Route Bth WeighInfant GeLabor LgtAnesthesiDel LocatProvider FOB t n h a n Delivery Date: No notes to display Delivery Date: On 11/24/17 @ 11:35 Haylie Alfaro breech, enlarged Delivery Date: No notes to display HPI 16 WEEK TRANSFER FROM [facility]: Details: TESSA RODRIGUEZ is a 27 year old who presents for routine OB visit. OB Visit JEWELS Calculator Estimated Delivery Date 05/07/18 Based on LMP (certain) 07/31/17 Current WG 16w 5d Number 1 Initial Weight: Not Recorded Date Weight BP Urine PrFHR FuHt Pres MoCTX DilationFetal StVisit NoProviderComments E ot v te GA G Effac lucose ed Visit Notes Visit Date: 11/24/17 no vb crmaping having anxiety but managing. reviewed history and recommend MFM anatomy ultrasound. discussed TOLAC and will plan on this. Haylie Alfaro MD on 11/25/17 transfer of care from [place] Haylie Alfaro MD on 11/24/17 Diagnostics Diagnostics Labs Blood Type A POSITIVE 06/06/17 Hct 39.4 % (37-47) 06/06/17 Hgb 13.7 g/dl (12.0-15.0) 06/06/17 Obstetrics Ultrasound 09/15/17 Details: HIV: Urine Culture: Sequential Screen: NIPT Screen: ROS Const Denies fever(s) GI Denies abdominal pain, Reports as per HPI Denies vaginal discharge, Denies abnormal vaginal bleeding, Reports as per HPI Exam Const General: healthy appearing, comfortable, no acute distress GI Inspection: normal to inspection Palpation: soft, nontender Results [id number] Office Urine Glucose Negative Last Edit by Janeth Salmon on 11/24/17 11:19 Office Urine Protein Negative Last Edit by Janeth Salmon on 11/24/17 11:19 Assessment AND Plan Problems 1. Encounter for supervision of other normal in second trimester Z34.82 JEWELS 05/07/18 boy PC Rufina (2 kids) 2. History of Z87.59 kidney issues, poor lung development, shortly after . plan MFM anatomy scan, nl NIPT 3. Previous delivery affecting O34.219 previous then cs for breech, plan TOLAC Plan Orders placed: discussed NATHAN and records reviewed ACOG trimester education reviewed and updated. see problem list details for updated plan management information. GA appropriate handout given. Orders Orders: Coding Level of Care Code OB Routine Diagnoses Encounter for supervision of other normal in second trimester Z34.82 Normal : other normal Trimester: second trimester History of Z87.59 Previous delivery affecting O34.219 11/25/17 0046 <Electronically signed by Haylie Alfaro MD> Date Haylie Alfaro MD Cosigner Signature: Date (if applicable) CC: HGMP Collected: 10/20/2017 Status: F Source: [facility] 12:01 [facility] REPOSITORY TYPE CODE TESTS RESULT OUT OF REFERENCE UNITS RANGE LAB WBC(LOINC) 4.60-10.80 10 3/mcL WBC 5.60 LAB RBCCT(LOINC 4.20-5.40 10 6/mcL ) RBC 4.44 LAB HGB(LOINC) 12.0-16.0 G/dL Hgb 13.3 LAB HCT(LOINC) 37.0-47.0 % Hct 38.7 LAB MCV(LOINC) 80.0-94.0 fL MCV 87.1 LAB MCH(LOINC) 27.0-31.2 pg MCH 29.9 LAB MCHC(LOINC) 33.0-37.0 G/dL MCHC 34.4 LAB RDW(LOINC) 11.5-14.5 % RDW 12.8 LAB PLT(LOINC) 130-400 10 3/mcL Platelet 235 LAB MPV(INC) 7.4-10.4 fL MPV 9.2 Performed By: #### ABOG, HGMP, ANSG, HIVRP, TSH #### [place] [address] #### RPR, VARIS, HBSAG, RUBIS #### [place] [id number] GEL ABO Collected: 10/20/2017 Status: F Source: [facility] 12:[address] [place] [address] REPOSITORY TYPE CODE TESTS RESULT OUT OF RANGE REFERENCE UNITS LAB ABORH(LOINC ) Unknown ABO/Rh A POS Interp Performed By: #### ABOG, HGMP, ANSG, HIVRP, TSH #### [place] [address] #### RPR, VARIS, HBSAG, RUBIS #### [address] [address] GEL ABS Collected: 10/20/2017 Status: F Source: [facility] 12:01 [facility] REPOSITORY TYPE CODE TESTS RESULT OUT OF REFERENCE UNITS RANGE LAB ANSG([facility] ) Antibody Negative ABSC Screen Gel Performed By: #### ABOG, HGMP, ANSG, HIVRP, TSH #### [address] [address] #### RPR, VARIS, HBSAG, RUBIS #### [facility] [address] [place] [address] RUBIS Collected: 10/20/2017 Status: F Source: [facility] 12:01 [facility] REPOSITORY TYPE CODE TESTS RESULT OUT OF REFERENCE UNITS RANGE LAB RUBIS(LOIN Positive C) Rubella Imm Positive St Result Comment: This immune status assay detects IgM and/or IgG antibody to Rubella. Interpret results in conjunction with clinical history. POS: Antibody detected; exposure at undetermined recent or distant time. If clinically indicated, order Rubella IGM to rule out recent infection. NEG: No antibody detected. Performed By: #### ABOG, HGMP, ANSG, HIVRP, TSH #### [address] [address] #### RPR, VARIS, HBSAG, RUBIS #### [place] [address] RPR Collected: 10/20/2017 Status: F Source: [facility] 12:01 [facility] REPOSITORY TYPE CODE TESTS RESULT OUT OF RANGE REFERENCE UNITS LAB RPR(LOINC) Non-Reactive RPR Non-Reactive Result Comment: The RPR test is a non- treponemal assay useful as an aid in the diagnosis of primary and secondary syphilis. It converts to positive generally within 2 weeks after the appearance of a lesion. This test is also useful for monitoring response to antibiotic therapy. A positive RPR screening test will be followed by the FTA ABS test. False positive RPR tests may occur in 1) patients with underlying autoimmune disorders, 2) elderly patients, 3) , and 4) other conditions with abnormal serum globulins. Performed By: #### ABOG, HGMP, ANSG, HIVRP, TSH #### [address] [address] #### RPR, VARIS, HBSAG, RUBIS #### [address] [address] HBSAG Collected: 10/20/2017 Status: F Source: [facility] 12:[address] [place] [address] REPOSITORY TYPE CODE TESTS RESULT OUT OF REFERENCE UNITS RANGE LAB HBSAG(LOINC Negative ) Hep B Negative Surf Ag Performed By: #### ABOG, HGMP, ANSG, HIVRP, TSH #### [address] [address] #### RPR, VARIS, HBSAG, RUBIS #### [place] [address] TSH Collected: 10/20/2017 Status: F Source: [facility] 12:[address] [place] [address] REPOSITORY TYPE CODE TESTS RESULT OUT OF RANGE REFERENCE UNITS LAB TSH(LOINC) 0.27-4.20 mcIU/mL TSH 0.59 Performed By: #### ABOG, HGMP, ANSG, HIVRP, TSH #### [address] [address] #### RPR, VARIS, HBSAG, RUBIS #### [place] [address] HIVRP Collected: 10/20/2017 Status: F Source: [facility] 12:[address] [place] [address] REPOSITORY TYPE CODE TESTS RESULT OUT OF RANGE REFERENCE UNITS LAB HIVRO(LOIN Non-Reactive C) Rapid HIV 1/2 Antibody Non-Reactive LAB HIVROI(RIGO NC) Unknown RHIV 1/2 Ab Int Non-Reactive LAB HIVAG(LOIN Non-Reactive C) HIV p24 Antigen Non-Reactive LAB P24AGI(RIGO NC) Unknown HIV P24 Int Non-reactive LAB [id number](LOINC) QC RHIV Valid Performed By: #### ABOG, HGMP, ANSG, HIVRP, TSH #### [address] [address] #### RPR, VARIS, HBSAG, RUBIS #### [place] [address] VARIS Collected: 10/20/2017 Status: F Source: [facility] 12:[address] [place] [address] REPOSITORY TYPE CODE TESTS RESULT OUT OF REFERENCE UNITS RANGE LAB VARIS(LOIN C) Varicella Imm Pos St Result Comment: This immune status assay detects antibody to Varicella Zoster virus. Interpret results in conjunction with clinical history. Positive: Reactive for antibodies to Varicella IgG. If clinically indicated, order Varicella IGM to rule out recent infection. Equivocal: Equivocal for antibodies to Varicella IgG. Suggest repeat testing in 10-14 days. Negative: Non-reactive for antibodies to Varicella IgG. Sera will be held 4-6 weeks if further testing is required. Performed By: #### ABOG, HGMP, ANSG, HIVRP, TSH #### [facility] [address] [place], [place] [address] #### RPR, VARIS, HBSAG, RUBIS #### [facility] [address] [place] [address] TRANSVAGINAL W/PREG US Observed: 09/15/2017 Status: F Source: [place] 9:37 AM [facility] REPOSITORY [facility] Imaging Services [address] [place] [address] Transvaginal w/Preg US MR#: [id number] Acct: [id number] Name: TESSA RODRIGUEZ Rep #: [id number] : 1990 F 27 From: Rocio Peña MD PCP: Care Physician, No Primary Status: REG CLI Study: Transvaginal w/Preg US Date of Exam: 09/15/17 Exam# [id number] Ordering Dr: LIDIA LINARES US OB Transvaginal INDICATION: VIABILITY COMPARISON: None TECHNIQUE: Ultrasonographic grayscale, Doppler and duplex investigation of the via trans-vaginal approach FINDINGS: The uterus measures 9.8 x 6.9 x 5.1 cm it contains a single live intrauterine gestation with crown-rump length of 6 mm, estimating a gestational age of 6 weeks and 3 days. heart rate measures 130 bpm. Measures 2 mm. There is no evidence of subchorionic hemorrhage. The ovaries are normal in size and demonstrate normal follicular anatomy normal flow. There is no evidence of free pelvic fluid. US/Transvaginal w/Preg US IMPRESSION: Single live intrauterine gestation with estimated gestational age of 6 weeks and 3 days by today's measurements. heart rate 130 bpm. at 1815 Reported and signed by: Rocio Peña MD Electronically Signed: Rocio Peña MD at 18:13 EDT Tel , Service support , CC: No Primary Care Physician; LIDIA LINARES Biomedical Engineering Aide: Signed TRANSVAGINAL W/PREG US Observed: 09/08/2017 Status: F Source: [place] 2:46 PM [facility] REPOSITORY [facility] Imaging Services [address] [place] [address] Transvaginal w/Preg US MR#: [id number] Acct: [id number] Name: TESSA RODRIGUEZ Rep #: [id number] : 1990 F 27 From: Michael Loza MD PCP: Care Physician, No Primary Status: REG CLI Study: Transvaginal w/Preg US Date of Exam: 09/08/17 Exam# [id number] Ordering Dr: LIDIA LINARES STUDY: FIRST TRIMESTER OBSTETRICAL ULTRASOUND REASON FOR EXAM: Female, 27 years old. viability. LMP: 07/31/2017 TECHNIQUE: Transvaginal PRIOR ULTRASOUND: None. FINDINGS: There is visualization of a single gestational sac in a normal intrauterine position. The mean sac diameter (MSD) measures 1.0 cm, indicating an estimated gestational age (EGA) of 5 weeks, 5 days. The gestational sac shape is within normal limits. There is a visualized yolk sac. The yolk sac measures 3.4 mm. The placenta is non-visualized. There is no demonstrated embryo ( pole). The estimated gestation age (EGA) by LMP is 5 weeks, 4 days. The estimated date of delivery (JEWELS) by LMP is 05/07/2018. The estimated gestation age (EGA) by US is 5 weeks, 5 days. The estimated date of delivery (JEWELS) by US is 05/06/2018. The uterus measures 8.9 x 7.0 x 5.3 cm. There is no demonstrated uterine fibroid. The cervix is closed. The right ovary measures 2.5 x 1.7 x 1.2 cm. There is no right ovarian cyst. There is no visualized right adnexal mass or complex lesion. The left ovary measures 3.2 x 2.2 x 2.7 cm. There is no left ovarian cyst. There is no visualized left adnexal mass or complex lesion. There is no fluid in the cul de sac. US/Transvaginal w/Preg US IMPRESSION: Findings consistent with a very early intrauterine gestation. Ultrasound EGA of approximately 5 weeks 5 days. No pole or cardiac activity is seen and therefore viability is not established. Suggest short interval follow-up and correlation with beta hCG. Electronically Signed: Michael Loza MD at 23:58 EDT , Service support , CC: No Primary Care Physician; LIDIA LINARES Biomedical Engineering Aide: Signed PROGESTERONE LEVEL Collected: 09/03/2017 Status: F Source: [place] 10:34 AM [facility] REPOSITORY TYPE CODE TESTS RESULT OUT OF REFERENCE UNITS RANGE LAB L509.4001 See Comment ng/mL Progesterone Normal 52.22 Result Comment: Progesterone Reference Table: UNITS Female: Follicular 0.15 - 1.40 ng/mL Luteal 3.34 - 25.56 ng/mL Mid-luteal 4.44 - 28.03 ng/mL Postmenopausal 0.0 - 0.73 ng/mL : 1st Trimester 11.22 - 90.00 ng/mL 2nd Trimester 25.55 - 89.40 ng/mL 3rd Trimester 48.40 -422.50 ng/mL Performed By: #### L509.4001 #### [facility] [address] [place], [address] HCG TITER QUANT., Collected: 09/03/2017 Status: F Source: [place] 10:34 AM [facility] REPOSITORY TYPE CODE TESTS RESULT OUT OF RANGE REFERENCE UNITS LAB L700.8000 <9 non-preg mIU/mL High HCG 2008 QUANT. Performed By: #### L700.8000 #### [facility] [address] [place], [address] PROGESTERONE LEVEL Collected: 09/01/2017 Status: F Source: [place] 1:03 PM [facility] REPOSITORY TYPE CODE TESTS RESULT OUT OF REFERENCE UNITS RANGE LAB L509.4001 See Comment ng/mL Progesterone Normal 43.53 Result Comment: Progesterone Reference Table: UNITS Female: Follicular 0.15 - 1.40 ng/mL Luteal 3.34 - 25.56 ng/mL Mid-luteal 4.44 - 28.03 ng/mL Postmenopausal 0.0 - 0.73 ng/mL : 1st Trimester 11.22 - 90.00 ng/mL 2nd Trimester 25.55 - 89.40 ng/mL 3rd Trimester 48.40 -422.50 ng/mL Performed By: #### L509.4001 #### [facility] [address] [place], [address] HCG TITER QUANT., Collected: 09/01/2017 Status: F Source: [place] 1:03 PM [facility] REPOSITORY TYPE CODE TESTS RESULT OUT OF RANGE REFERENCE UNITS LAB L700.8000 <9 non-preg mIU/mL High HCG 986 QUANT. Performed By: #### L700.8000 #### [facility] [address] [place], [address] HCGQ Collected: 07/14/2017 Status: F Source: [facility] 3:00 PM [facility] [place] REPOSITORY TYPE CODE TESTS RESULT OUT OF REFERENCE UNITS RANGE LAB HCGQ(LOINC mIU/mL ) hCG, quantitative 4.4 Result Comment: Above normal(expected)range Quantitative hCG reference ranges: 3 Weeks 5-12 mIU/mL 4 Weeks 10-708 mIU/mL 5 Weeks 217-8,245 mIU/mL 6 Weeks 152-32,177 mIU/mL 7 Weeks 4,059-153,767 mIU/mL 8 Weeks 31,366-149,094 mIU/mL 9 Weeks 59,109-135,901 mIU/mL 10 Weeks 44,186-170,409 mIU/mL 12 Weeks 27,107-201,615 mIU/mL 14 Weeks 24,302-93,646 mIU/mL 16 Weeks 8,905-55,332 mIU/mL Performed By: #### HCGQ #### [address] [place], [place] [address] HCGQ Collected: 07/07/2017 Status: F Source: [facility] 1:12 PM [facility] [place] REPOSITORY TYPE CODE TESTS RESULT OUT OF REFERENCE UNITS RANGE LAB HCGQ(LOINC mIU/mL ) hCG, quantitative 9.3 Result Comment: Above normal(expected)range Quantitative hCG reference ranges: 3 Weeks 5-12 mIU/mL 4 Weeks 10-708 mIU/mL 5 Weeks 217-8,245 mIU/mL 6 Weeks 152-32,177 mIU/mL 7 Weeks 4,059-153,767 mIU/mL 8 Weeks 31,366-149,094 mIU/mL 9 Weeks 59,109-135,901 mIU/mL 10 Weeks 44,186-170,409 mIU/mL 12 Weeks 27,107-201,615 mIU/mL 14 Weeks 24,302-93,646 mIU/mL 16 Weeks 8,905-55,332 mIU/mL Performed By: #### HCGQ #### [address] [address] HCGQ Collected: 06/09/2017 Status: F Source: [facility] 10:49 AM [facility] [place] REPOSITORY TYPE CODE TESTS RESULT OUT OF REFERENCE UNITS RANGE LAB HCGQ(LOINC mIU/mL ) hCG, quantitative 7.4 Result Comment: Above normal(expected)range Quantitative hCG reference ranges: 3 Weeks 5-12 mIU/mL 4 Weeks 10-708 mIU/mL 5 Weeks 217-8,245 mIU/mL 6 Weeks 152-32,177 mIU/mL 7 Weeks 4,059-153,767 mIU/mL 8 Weeks 31,366-149,094 mIU/mL 9 Weeks 59,109-135,901 mIU/mL 10 Weeks 44,186-170,409 mIU/mL 12 Weeks 27,107-201,615 mIU/mL 14 Weeks 24,302-93,646 mIU/mL 16 Weeks 8,905-55,332 mIU/mL Performed By: #### HCGQ #### [address] [address] EMERGENCY DEPARTMENT Observed: 06/06/2017 Status: F Source: [place] SUMMARY 11:59 PM [facility] REPOSITORY [facility] Medical Records Department [address] [place] [address] Emergency Department Summary 06/06/176 MR#: [id number] Acct: [id number] Name: TESSA RODRIGUEZ Rep #: [id number] : 1990 26 From: Connie Nguyen DO PCP: Care Physician, No Primary Status: DEP ER - ER Visit Summary Date of Service: 06/06/17 Chief Complaint: [] Vaginal bleeding, History of Present Illness: The patient is a 26 F [] G3, P1 who reports she is 5 weeks and 5 days with vaginal spotting today. Patient reports she had intercourse yesterday. Denies abdominal pain or cramping. Denies nausea or vomiting. No other complaints at this time. She reports a history of polycystic kidney disease. Physical Examination: [] Young female in no acute distress. Vital signs within normal limits. Patient afebrile. Cardiovascular exam is regular rate and rhythm. Lungs were clear to auscultation. Abdomen soft nontender. Pelvic exam: Test Results: [] CBC within normal limits. BMP normal with exception of potassium 3.2. Urine analysis normal with exception of some blood. Serum quantitative hCG is only 14 despite the reported history of at 5 weeks and 5 days. ABO Rh A positive Emergency Department Course and Treatment: [] In light of the patient's very low hCG we canceled the initially ordered transvaginal ultrasound. Patient is likely having miscarriage based off the laboratory findings. Patient was counseled regarding her laboratory findings. Treatment Plan: [] Follow-up with [facility]. Disposition: [] Discharge, stable. Impression: [] Incomplete This note was generated with Latio dictation software. It may contain incorrect words, spelling, and punctuation that were not noted in review of the chart prior to signing ED Disposition - Plan for ED Patient: Chief Complaint: Vag Bld, Preg Referrals: Care Physician,No Primary [Primary Care Provider] - What to do if you have Problems For any increased pain, shortness of breath, bleeding, nausea or vomiting, chest pain, or any unexpected problems, contact your Primary Care Provider. Call [facility] ([phone]) or report to the closest Emergency Room. Call 911 if necessary. 06/06/17 454 <Electronically signed by Connie Nguyen DO> Date Connie Nguyen DO Cosigner Signature (If Indicated): Date CC: No Primary Care Physician DISCHARGE INSTRUCTION Observed: 06/06/2017 Status: F Source: [place] 10:41 PM [facility] REPOSITORY [facility] Medical Records Department [address] [place] [address] Discharge Instruction 06/06/172239 MR#: [id number] Acct: [id number] Name: TESSA RODRIGUEZ Rep #: [id number] : 1990 26 From: Connie Nguyen DO PCP: Care Physician, No Primary Status: REG ER ED Disposition - Plan for ED Patient: Disposition: Home or Assisted Living Chief Complaint: Vag Bld, Preg Instructions: ED Miscarriage Incom Referrals: Care Physician,No Primary [Primary Care Provider] - What to do if you have Problems For any increased pain, shortness of breath, bleeding, nausea or vomiting, chest pain, or any unexpected problems, contact your Primary Care Provider. Call [facility] ([phone]) or report to the closest Emergency Room. Call 911 if necessary. 06/06/172240 <Electronically signed by Connie Nguyen DO> Date Connie Nguyen DO Cosigner Signature (If Indicated): Date CC: No Primary Care Physician CBC W/DIFF, AUTOMATED Collected: 06/06/2017 Status: F Source: [place] 9:20 PM [facility] REPOSITORY TYPE CODE TESTS RESULT OUT OF RANGE REFERENCE UNITS LAB L100.1000 4.4-11.0 K/mm3 Normal WBC 10.4 LAB L100.1200 4.2-5.4 M/mm3 Normal RBC 4.49 LAB L100.1300 12.0-15.0 g/dl Normal HGB 13.7 LAB L100.1400 37-47 % Normal HCT 39.4 LAB L100.1500 81-99 fL Normal MCV 87.8 LAB L100.1600 27.0-32.0 pg Normal MCH 30.5 LAB L100.1700 32-36 g/gl Normal MCHC 34.8 LAB L100.1810 11.6-14.6 % Normal RDW CV 12.4 LAB L100.1820 35.1-43.9 fl Normal RDW SD 39.2 LAB L100.1900 150-450 K/mm3 Normal PLT 223 LAB L100.2000 6.2-12.0 fl Normal MPV 10.5 LAB L100.2100 47-70 % High NEUT% 78.8 LAB L100.2200 19-41 % Low LY% 16.3 LAB L100.2300 0-10 % Normal MONO% 4.2 LAB L100.2400 0-5 % Normal EO% 0.4 LAB L100.2500 0-1 % Normal BASO% 0.2 LAB L100.2550 0.0-0.9 % Normal IM GRAN % 0.100 Result Comment: IG% - Immature Granulocytes (promyelocytes, myelocytes and metamyelocytes) > 1% indicates that a LEFT SHIFT is Present. LAB L100.2620 2.0-7.7 X10 3/uL High Absolute Neut 8.2 LAB L100.2720 0.83-4.51 X10 3/ul Normal Absolute Lymph 1.70 Performed By: #### L100.0100 #### [facility] [address] [place], [place], [address] BASIC METABOLIC Collected: 06/06/2017 Status: F Source: [place] PROFILE (BMP) 9:20 PM [facility] REPOSITORY TYPE CODE TESTS RESULT OUT OF RANGE REFERENCE UNITS LAB L501.0100 70-110 mg/dL Normal GLU 102 LAB L501.1000 7-18 mg/dL Normal BUN 9 LAB L501.1100 0.55-1.02 mg/dL Normal 0.70 CREAT,SERUM Result Comment: The validity of the calculated GFR AND GFRAA in patients over 70 years has not been determined. Clinical correlation is essential. LAB L501.1110 >60 mL/min Normal EST GFR 106 Result Comment: Non- GFR Calc LAB L501.1115 >60 mL/min Normal EST GFR - AA 128 Result Comment: GFR Calc LAB L501.1255 ml/min Normal Estimated CRCL 104.24 LAB L501.1300 10-20 RATIO BUN/CRE Normal 12.9 LAB L501.2200 8.5-10 mg/dL .1 CA Normal 8.9 LAB L501.5300 136-14 mmol/L 5 NA Normal 139 LAB L501.5600 3.5-5. mmol/L Low 1 K 3.2 LAB L501.5900 98-107 mmol/L CL Normal 107 LAB L501.6100 21.0-3 mmol/L 2.0 CO2 Normal 25.0 LAB L501.6200 5-15 GAP Normal 7 Performed By: #### L500.2500 #### [facility] [address] [place], [address] HCG TITER QUANT., Collected: 06/06/2017 Status: F Source: [place] 9:20 PM [facility] REPOSITORY TYPE CODE TESTS RESULT OUT OF RANGE REFERENCE UNITS LAB L700.8000 <9 non-preg mIU/mL High HCG 14 QUANT. Performed By: #### L700.8000 #### [facility] [address] [place], [address] ABO RH BLOOD TYPE, Collected: 06/06/2017 Status: F Source: [place] PATIENT 9:20 PM [facility] REPOSITORY TYPE CODE TESTS RESULT OUT OF RANGE REFERENCE UNITS LAB B10.0800 A Normal BLOOD POSITIVE TYPE GEL Performed By: #### B10.0010 #### [facility] [address] [place], [address] URINALYSIS, COMPLETE Collected: 06/06/2017 Status: F Source: [place] 9:17 PM [facility] REPOSITORY Order Comment: How was Urine Obtained? CLEAN CATCH TYPE CODE TESTS RESULT OUT OF RANGE REFERENCE UNITS LAB L400.3000 Yellow COLOR Normal Yellow LAB L400.3050 Clear Normal CLARITY Clear LAB L400.3200 Normal mg/dl Normal GLUCOSE, UR Normal LAB L400.3300 Negative mg/dL Normal BILIRUBIN URINE Negative LAB L400.3400 Negative mg/dl Normal KETONE UR Negative LAB L400.3465 1.002-1.030 Normal SP.GR. DIPSTX 1.010 LAB L400.3550 5.0 - 8.0 pH UR Normal 6.5 LAB L400.3600 Negative mg/dl PROT Normal DIPSTX Negative LAB L400.3700 Normal mg/dl Normal UROBILI Normal LAB L400.3750 Negative Normal NITRITE UR Negative LAB L400.3780 Negative /ul High OCCULT BLOOD-UR 150 LAB L400.3800 Negative /ul High LEUK 25 ESTERASE LAB L400.4050 0-5 /hpf WBC Normal 0-5 SEEN LAB L400.4100 0-5 /hpf 0 Normal RBC-UA SEEN LAB L400.4150 5-10 /hpf SQUAM Normal EPI 0-5 SEEN LAB L400.4300 None Seen /hpf 0 Normal BACTERIA SEEN LAB L400.4350 <or=2+ /hpf 0 Normal MUCUS, URINE SEEN Performed By: #### L400.0001 #### [facility] [address] [place], [address] PROGRESS Observed: 05/25/2017 Status: COMPLETED Source: [place] 4:56 PM [facility] REPOSIT[facility] HNO ID: [id number] Author: Chad Hardin (Ameya) HUDSON Weiner Service: (none) Author Type: Nurse Practitioner Type: Progress Notes Filed: 05/25/2017 5:04 PM Note Text: HPI Patient presents with: Pain, Sinus: sinus pressure/drainage x 1 month Cough: x 1 month Mucinex, Afrin, Dayquil otc with minimal relief. Review of Systems Constitutional: Negative for chills, fever and malaise/fatigue. HENT: Positive for congestion and sinus pain. Negative for ear pain and sore throat. Eyes: Negative for discharge and redness. Respiratory: Positive for cough. Negative for hemoptysis, sputum production, shortness of breath and wheezing. Gastrointestinal: Negative for abdominal pain, diarrhea, nausea and vomiting. Skin: Negative for rash. Neurological: Negative for headaches. All other systems reviewed and are negative. No past medical history on file. No past surgical history on file. ALLERGIES Review of patient's allergies indicates no known allergies. MEDICATIONS lidocaine viscous (LIDOCAINE VISCOUS) 2 % solution Gargle and spit 10-15mLs every 3-4 hours as need for throat discomfort. Pzirzinm-Wj-Ysv-Fe-FA (P-D PLUS) ORAL Tab Take 1 tablet by mouth. No family history on file. Social History Substance Use Topics - Smoking status: Current Every Day Smoker - Smokeless tobacco: Never Used - Alcohol use Not on file Physical Exam Constitutional: She is well-developed, well-nourished, and in no distress. HENT: Head: Normocephalic. Right Ear: Tympanic membrane, external ear and ear canal normal. Left Ear: Tympanic membrane, external ear and ear canal normal. Nose: Mucosal edema present. Right sinus exhibits maxillary sinus tenderness and frontal sinus tenderness. Left sinus exhibits maxillary sinus tenderness and frontal sinus tenderness. Mouth/Throat: Posterior oropharyngeal erythema (injected with PND) present. Eyes: Conjunctivae are normal. Neck: Normal range of motion. Neck supple. Cardiovascular: Normal rate, regular rhythm and normal heart sounds. Pulmonary/Chest: Effort normal and breath sounds normal. No respiratory distress. She has no wheezes. Abdominal: Soft. She exhibits no distension. There is no tenderness. Lymphadenopathy: She has no cervical adenopathy. Skin: Skin is warm and dry. No rash noted. Nursing note and vitals reviewed. ASSESSMENT/PLAN: 1. Acute sinusitis, recurrence not specified, unspecified location - ICD9: 461.9, ICD10: J01.90 (primary diagnosis) - Will begin treatment with Augmentin 875 mg PO BID for 10 days - The patient should also be given OTC decongestants prn, OTC cough and cold meds as needed, warm salt water gargles, throat lozenges and/or OTC throat spray as needed and nasal saline gtts and suction prn for the first 5-7 days of treatment. - Supportive care with plenty of fluids, rest, and analgesia prn. - Follow up in 3-5 days if symptoms persist or worsen. 2. Cough - ICD9: 786.2, ICD10: R05 -secondary to PND -otc cough medication PRN -F/u with pcp in 3-5 days or sooner if symptoms are not improving or worsening Prescription instructions reviewed with patient as applicable. Patient advised if symptoms do not improve or if symptoms worsen sooner, to contact their primary care physician. Potential red flag symptoms discussed with the patient. Reviewed appropriate action plan to take if red flag symptoms occur. Patient agreeable to treatment plan. Chad Weiner CNP CNOV Observed: 05/25/2017 Status: COMPLETED Source: [place] 4:30 PM [facility] REPOSITORY Office Visit (WSTR) TESSA BRIGHT ([id number]) 1990 F Date Time Provider Department 05/25/17 4:30 PM CHAD WEINER ([employer]IOR [employer]INEER) [facility] During your visit today, we recorded the following information about you: Temperature Pulse Respiration Blood pressure 97.9 degrees 74/minute 16/minute 101/70 Weight 66.2 kg Chad Weiner CNP, CNP 05/25/2017 5:04 PM Signed HPI Patient presents with: Pain, Sinus: sinus pressure/drainage x 1 month Cough: x 1 month Mucinex, Afrin, Dayquil otc with minimal relief. Review of Systems Constitutional: Negative for chills, fever and malaise/fatigue. HENT: Positive for congestion and sinus pain. Negative for ear pain and sore throat. Eyes: Negative for discharge and redness. Respiratory: Positive for cough. Negative for hemoptysis, sputum production, shortness of breath and wheezing. Gastrointestinal: Negative for abdominal pain, diarrhea, nausea and vomiting. Skin: Negative for rash. Neurological: Negative for headaches. All other systems reviewed and are negative. No past medical history on file. No past surgical history on file. ALLERGIES Review of patient's allergies indicates no known allergies. MEDICATIONS lidocaine viscous (LIDOCAINE VISCOUS) 2 % solution Gargle and spit 10-15mLs every 3-4 hours as need for throat discomfort. Fmymvyli-Hj-Omq-Fe-FA (P-D VANCE PLUS) ORAL Tab Take 1 tablet by mouth. No family history on file. Social History Substance Use Topics - Smoking status: Current Every Day Smoker - Smokeless tobacco: Never Used - Alcohol use Not on file Physical Exam Constitutional: She is well-developed, well-nourished, and in no distress. HENT: Head: Normocephalic. Right Ear: Tympanic membrane, external ear and ear canal normal. Left Ear: Tympanic membrane, external ear and ear canal normal. Nose: Mucosal edema present. Right sinus exhibits maxillary sinus tenderness and frontal sinus tenderness. Left sinus exhibits maxillary sinus tenderness and frontal sinus tenderness. Mouth/Throat: Posterior oropharyngeal erythema (injected with PND) present. Eyes: Conjunctivae are normal. Neck: Normal range of motion. Neck supple. Cardiovascular: Normal rate, regular rhythm and normal heart sounds. Pulmonary/Chest: Effort normal and breath sounds normal. No respiratory distress. She has no wheezes. Abdominal: Soft. She exhibits no distension. There is no tenderness. Lymphadenopathy: She has no cervical adenopathy. Skin: Skin is warm and dry. No rash noted. Nursing note and vitals reviewed. ASSESSMENT/PLAN: 1. Acute sinusitis, recurrence not specified, unspecified location - ICD9: 461.9, ICD10: J01.90 (primary diagnosis) - Will begin treatment with Augmentin 875 mg PO BID for 10 days - The patient should also be given OTC decongestants prn, OTC cough and cold meds as needed, warm salt water gargles, throat lozenges and/or OTC throat spray as needed and nasal saline gtts and suction prn for the first 5-7 days of treatment. - Supportive care with plenty of fluids, rest, and analgesia prn. - Follow up in 3-5 days if symptoms persist or worsen. 2. Cough - ICD9: 786.2, ICD10: R05 -secondary to PND -otc cough medication PRN -F/u with pcp in 3-5 days or sooner if symptoms are not improving or worsening Prescription instructions reviewed with patient as applicable. Patient advised if symptoms do not improve or if symptoms worsen sooner, to contact their primary care physician. Potential red flag symptoms discussed with the patient. Reviewed appropriate action plan to take if red flag symptoms occur. Patient agreeable to treatment plan. HUDSON Schulz CNP, HUDSON 05/25/2017 4:59 PM Signed Each of us has four paired cavities (spaces) in our head that are connected to the nose by narrow channels. These cavities, known as sinuses, produce a thin mucus that drains out of the channels of the nose. Normally, sinuses are filled with air. But when sinuses become blocked and filled with fluid, bacteria can grow and cause an infection (sinusitis). Conditions that cause sinus blockage include the common cold, allergic rhinitis (swelling of the lining of the nose due to allergies), nasal polyps (small growths in the lining of the nose), or deviated septum (a shift in the nasal cavity). Allergies such as hay fever can also cause swelling and poor drainage of the sinuses. If you have symptoms that involve the sinuses, it may be difficult to tell if you have sinusitis, a cold, or a nasal allergy. This article will describe the symptoms, diagnosis, and treatment of sinusitis, and how to distinguish sinusitis from a cold or nasal allergy. What is sinusitis? Sinusitis is an inflammation, or swelling, of the tissue lining the sinuses. There are two types of sinusitis: Acute sinusitis: a sudden onset of cold symptoms such as runny nose, stuffy nose, and facial pain that does not go away after 7-10 days. It responds well to antibiotics and decongestants. Chronic sinusitis: characterized by nasal congestion, drainage, facial pain/pressure, and decreased sense of smell for at least 12 weeks. Who gets sinusitis? About 37 million Americans suffer from at least one episode of sinusitis each year. People who have the following conditions have a higher risk of sinusitis: Nasal mucus membrane swelling, as from a common cold Blockage of drainage ducts Structure differences that narrow the drainage ducts Conditions that result in an increased risk of infection In children, common environmental factors that contribute to sinusitis include allergies, illness from other children at day care or school, pacifiers, bottle drinking while lying on the back, and smoke in the environment. In adults, the contributing factors are most frequently infections, allergies, and smoking. What are the signs and symptoms of acute sinusitis? The primary symptoms of acute sinusitis include: Facial pain/pressure Nasal stuffiness Nasal discharge Loss of smell Cough/congestion Additional symptoms may include: Fever Bad breath Fatigue Dental pain Acute sinusitis can last four weeks or more. This condition may be diagnosed when a person has two or more symptoms and/or the presence of thick, green, or yellow nasal discharge. What are the signs and symptoms of chronic sinusitis? People with chronic sinusitis may have the following symptoms for 12 weeks or more: Facial congestion/fullness A nasal obstruction/blockage Pus in the nasal cavity Fever Nasal discharge/discolored postnasal drainage Additional symptoms may include: Headaches Bad breath Fatigue Dental pain Thick nasal discharge How is sinusitis treated? Acute sinusitis. If you have a simple sinusitis infection, your health care provider may recommend treatment with decongestants like Sudafed and steam inhalations alone, as most sinusitis is viral. Antibiotics are generally needed for more seriously ill patients. If antibiotics are administered, they are given for 10 to 14 days. With treatment, the symptoms usually disappear and antibiotics are no longer required. Oral and topical decongestants may be prescribed to alleviate the symptoms. Use of prescription intranasal steroid sprays might be effective in controlling symptoms. However, non-prescription drops or sprays should not be used beyond their recommended period--usually four to five days--or they may actually increase congestion. Chronic sinusitis. Warm moist air may alleviate sinus congestion. Using a vaporizer or inhaling steam from a jarvis of boiling water (removed from heat) may also help. Warm compresses are useful to relieve pain in the nose and sinuses. Saline nose drops are also safe for home use. Nonprescription drops or sprays might be effective in controlling symptoms; however, they should not be used beyond their recommended period of time. Nasal steroid sprays that shrink swollen membranes of the nose are beneficial. Antibiotics may also be prescribed. Avoidance of triggers is important. Allergies should be controlled and irritants, such as smoke, should be avoided. Referring Provider: SELF [200] Allergies As of Date: 05/25/2017 (No Known Allergies) Date Reviewed: 05/25/2017 Reviewed by: Chad Hardin (Ameya) HUDSON Weiner - Fully Assessed Reason for Visit: Pain, Sinus [857] Cmt: sinus pressure/drainage x 1 month Cough [28] Cmt: x 1 month Primary Visit Diagnosis:Acute sinusitis, recurrence not specified, unspecified location [J01.90] Other Visit Diagnosis:Cough [R05] Order(s):amoxicillin-clavulanic acid (AUGMENTIN) 875-125 mg per tabletTake 1 tablet by mouth twice daily for 10 days.Disp: 20 tabletRfl: 0 Prescriptions as of 05/25/2017 Sig: AMOXICILLIN 875 MG-POTASSIUM * Take 1 tablet by mouth twice * LIDOCAINE 2 % MUCOSAL SOLUTION Gargle and spit 10-15mLs ever* * VITAMIN,CALCIUM,MINE* Take 1 tablet by mouth. Medication notes this encounter LIDOCAINE 2 % MUCOSAL SOLUTION >> Rashmi Michelle Cma 05/25/2017 4:46 PM >> RASHMI MICHELLE CMA May 25, 2017 4:46 PM Not taking Problem List As Of Date: 05/25/2017 (None) Other instructions from your clinician: Each of us has four paired cavities (spaces) in our head that are connected to the nose by narrow channels. These cavities, known as sinuses, produce a thin mucus that drains out of the channels of the nose. Normally, sinuses are filled with air. But when sinuses become blocked and filled with fluid, bacteria can grow and cause an infection (sinusitis). Conditions that cause sinus blockage include the common cold, allergic rhinitis (swelling of the lining of the nose due to allergies), nasal polyps (small growths in the lining of the nose), or deviated septum (a shift in the nasal cavity). Allergies such as hay fever can also cause swelling and poor drainage of the sinuses. If you have symptoms that involve the sinuses, it may be difficult to tell if you have sinusitis, a cold, or a nasal allergy. This article will describe the symptoms, diagnosis, and treatment of sinusitis, and how to distinguish sinusitis from a cold or nasal allergy. What is sinusitis? Sinusitis is an inflammation, or swelling, of the tissue lining the sinuses. There are two types of sinusitis: Acute sinusitis: a sudden onset of cold symptoms such as runny nose, stuffy nose, and facial pain that does not go away after 7-10 days. It responds well to antibiotics and decongestants. Chronic sinusitis: characterized by nasal congestion, drainage, facial pain/pressure, and decreased sense of smell for at least 12 weeks. Who gets sinusitis? About 37 million Americans suffer from at least one episode of sinusitis each year. People who have the following conditions have a higher risk of sinusitis: Nasal mucus membrane swelling, as from a common cold Blockage of drainage ducts Structure differences that narrow the drainage ducts Conditions that result in an increased risk of infection In children, common environmental factors that contribute to sinusitis include allergies, illness from other children at day care or school, pacifiers, bottle drinking while lying on the back, and smoke in the environment. In adults, the contributing factors are most frequently infections, allergies, and smoking. What are the signs and symptoms of acute sinusitis? The primary symptoms of acute sinusitis include: Facial pain/pressure Nasal stuffiness Nasal discharge Loss of smell Cough/congestion Additional symptoms may include: Fever Bad breath Fatigue Dental pain Acute sinusitis can last four weeks or more. This condition may be diagnosed when a person has two or more symptoms and/or the presence of thick, green, or yellow nasal discharge. What are the signs and symptoms of chronic sinusitis? People with chronic sinusitis may have the following symptoms for 12 weeks or more: Facial congestion/fullness A nasal obstruction/blockage Pus in the nasal cavity Fever Nasal discharge/discolored postnasal drainage Additional symptoms may include: Headaches Bad breath Fatigue Dental pain Thick nasal discharge How is sinusitis treated? Acute sinusitis. If you have a simple sinusitis infection, your health care provider may recommend treatment with decongestants like Sudafed and steam inhalations alone, as most sinusitis is viral. Antibiotics are generally needed for more seriously ill patients. If antibiotics are administered, they are given for 10 to 14 days. With treatment, the symptoms usually disappear and antibiotics are no longer required. Oral and topical decongestants may be prescribed to alleviate the symptoms. Use of prescription intranasal steroid sprays might be effective in controlling symptoms. However, non-prescription drops or sprays should not be used beyond their recommended period--usually four to five days--or they may actually increase congestion. Chronic sinusitis. Warm moist air may alleviate sinus congestion. Using a vaporizer or inhaling steam from a jarvis of boiling water (removed from heat) may also help. Warm compresses are useful to relieve pain in the nose and sinuses. Saline nose drops are also safe for home use. Nonprescription drops or sprays might be effective in controlling symptoms; however, they should not be used beyond their recommended period of time. Nasal steroid sprays that shrink swollen membranes of the nose are beneficial. Antibiotics may also be prescribed. Avoidance of triggers is important. Allergies should be controlled and irritants, such as smoke, should be avoided. Prescriptions ordered this encounter Disp Refills Start End AMOXICILLIN 875 MG-POTASSIUM CLAVULA* 20 t* 0 05/25/2017 06/04/2017 Route: ORAL Sig: Take 1 tablet by mouth twice daily for 10 days. Disposition: Return if symptoms worsen or fail to improve. Follow-up and Disposition History Recorded Encounter Status:Closed by CHAD WEINER on 05/25/17 ALLERGIES ALLERGIES DATE TYPE / CODE NAME / CODE REACTION SEVERITY SOURCE 04/26/2018 Drug No Known Unknown [place] Allergy/[id number](S Allergies/F0019 [facility]) 26462(RXNORM) Hospital Repository Miscellaneous NO KNOWN [place] Allergy/455666966(S ALLERGIES [facility]) Hospital Repository Drug NO KNOWN [place] Class/[id number](SNO ALLERGIES [facility]) [place] Repository ENCOUNTERS ENCOUNTERS ADMIT/DISCHARGE ACCOUNT NUMBER ADMITTING ENCOUNTER LOCATION SOURCE CLASS 04/26/2018/04/28/20 [id number] Gemma, Inpatient [place] Der[place] 18 Haylie Encounter [facility] ding:WPRoom: Repository UM484Rjr: 1 04/26/2018 [id number] Gemma Ambulatory BMSBuilding: Koloapatricia Stallings BMS.[facility] Repository 04/26/2018 [id number] [place] Ambulatory BMSBuilding: [place] Haylie BMS.[facility] Repository 04/26/2018 [id number] [place] Ambulatory BMSBuilding: [place] Haylie BMS.[facility] Repository 04/25/2018/04/25/20 [id number] Ambulatory Building:[address] Repository 04/20/2018/04/20/20 [id number] Ambulatory BMSBuilding: Derrell 18 BMS.[facility] Repository 04/20/2018/04/20/20 [id number] Ambulatory BMSBuilding: [place] 18 BMS.[facility] Repository 04/18/2018 [id number] Ambulatory Building:[facility] Repository 04/13/2018 [id number] Ambulatory [facility] ding:LABSPEC Repository 04/13/2018/04/13/20 [id number] Ambulatory BMSBuilding: [place] 18 BMS.[facility] Repository 04/11/2018 [id number] Ambulatory Building:[facility] Repository 03/28/2018/03/28/20 [id number] Ambulatory BMSBuilding: Derrell 18 BMS.[facility] Repository 03/28/2018/03/28/20 [id number] Ambulatory Building:[address] Repository 03/21/2018/03/21/20 [id number] Ambulatory Building:[address] Repository 03/14/2018/03/14/20 [id number] Ambulatory BMSBuilding: [place] 18 BMS.[facility] Repository 03/14/2018 [id number] Ambulatory Building:[facility] Repository 03/07/2018 [id number] Ambulatory Building:[facility] Repository 03/04/2018/03/05/20 [id number] Ambulatory UNKNOWNBuild [facility] 18 ing:ILD TP System LDRPRoom: Repository IOBTBed: IOBT01 02/28/2018/02/29/20 [id number] Ambulatory BMSBuilding: Derrell 18 BMS.[facility] Repository 02/28/2018 [id number] Ambulatory Building:[facility] Repository 02/23/2018 [id number] Ambulatory BMSBuilding: [place] BMS.CF.[facility] Repository 02/23/2018 [id number] Ambulatory [facility] ding:CVS Repository 02/16/2018 [id number] Ambulatory [facility] ding:LAB Repository 02/16/2018/02/17/20 [id number] Ambulatory BMSBuilding: [place] 18 BMS.[facility] Repository 02/16/2018/02/17/20 [id number] Ambulatory BMSBuilding: [place] 18 BMS.[facility] Repository 02/14/2018 [id number] Ambulatory Building:[facility] Repository 01/31/2018/02/01/20 [id number] Ambulatory Building:[address] Repository 01/19/2018 [id number] Ambulatory [facility] ding:LABSPEC Repository 01/19/2018/01/20/20 [id number] Ambulatory BMSBuilding: Der[place] 18 BMS.[facility] Repository 01/11/2018/01/12/20 [id number] Ambulatory Building:[address] Repository 01/03/2018 [id number] Ambulatory Building:[facility] Repository 12/27/2017/12/28/19 [id number] Ambulatory Building:[address] Repository 12/22/2017/12/23/19 [id number] Ambulatory BMSBuilding: Derrell 18 BMS.[facility] Repository 12/06/2017 [id number] Ambulatory Building:[facility] Repository 11/24/2017/11/25/19 [id number] Ambulatory BMSBuilding: [place] 18 BMS.[facility] Repository 10/27/2017 [id number] Ambulatory [facility] Repository 10/20/2017 [id number] Ambulatory [facility] Repository 10/20/2017/10/21/19 [id number] Ambulatory [address] ding:[place] Repository 09/15/2017 [id number] Ambulatory [facility] ding:US Repository 09/08/2017 [id number] Ambulatory [facility] ding:US Repository 09/07/2017 [id number] Ambulatory BBuilding:Count includes the [facility] Repository 09/03/2017 [id number] Ambulatory [facility] ding:LAB Repository 09/01/2017 [id number] Ambulatory [facility] ding:LAB.FUT Repository URE 07/14/2017/07/14/19 [id number] Ambulatory [address] ding:[facility] Repository 07/07/2017/07/07/19 [id number] Ambulatory [address] ding:[facility] Repository 06/09/2017/06/09/19 [id number] Ambulatory [address] ding:[facility] Repository 06/06/2017/06/06/19 [id number] Emergency [place] [address]rell[address] ding:ED Repository 05/25/2017/05/25/19 [id number] Ambulatory [address] Repository PAYERS PAYERS ENCOUNTER GUARANTOR PAYER SUBSCRIBER SOURCE 04/26/2018 TSESA Telles Primary Insurance:[facility] TESSA Dove [id number] [facility] PLANBeth David HospitalOB: [facility] Number: [id number] [place], [place] [id number] Repository 24097Vze: (330) Date:4282-46-85RX [phone] () [address] [place], [place] [address]WP: 04/26/2018 Secondary NOT GIVENUNK [place] Insurance:SELF PAY [facility] Number: Effective Repository Date:2018-04-26 04/26/2018 TESSA Telles Primary Insurance:[facility] TESSA Dove [id number] [facility] Number: [id number] Hill, [place] [id number] Repository 34883Spz: (330) Date:9839-46-79BL [phone] () [address] [place] [address] 37596CX: 04/26/2018 Secondary NOT GIVENUNK [place] Insurance:SELF PAY [facility] Number: Effective Repository Date:2018-04-26 04/26/2018 TESSA Telles Primary Insurance:[facility] TESSA Dove [id number] [facility]: [facility] Number: [id number] Hill, [place] [id number] Repository 73458Vzw: (330) Date:7900-26-23BE [phone] () [address] [place] [address] 31223KR: 04/26/2018 Secondary NOT GIVENUNK [place] Insurance:SELF PAY [facility] Number: Effective Repository Date:2018-04-26 04/26/2018 TESSA Telles Primary Insurance:[facility] TESSA Telles [place] [id number] COMMUNITY PLANPolicy [facility]ITAL[facility]ANDOB: [facility] Number: [id number] [place], [place] [id number] Repository 48990Zua: (330) Date:3678-38-56HX [phone] () [address] [place] [address] 23684EF: 04/26/2018 Secondary NOT GIVENUNK [place] Insurance:SELF PAY [facility] Number: Effective Repository Date:2018-04-26 04/25/2018 TESSA [place] T[place]SA [facility] HELMANDOB: [facility] HELMANDOB: Hospital [facility] [id number] Repository [facility] Number: [address] [place], [place] [id number] [facility] 58500Vrj: (330) Date: [place] [address] [phone] () 04/20/2018 TESSA Telles Primary Insurance:[facility] TESSA Telles [place] [id number] [facility]: [facility] Number: [id number] Hill, [place] [id number] Repository 05075Ekg: (330) Date:6195-20-35LU [phone] () [address] [place] [address] 72942WE: 04/20/2018 Secondary NOT GIVENUNK [place] Insurance:SELF PAY [facility] Number: Effective Repository Date:2018-04-20 04/20/2018 TESSA Telles Primary Insurance:[facility] TESSA Telles [place] [id number] [facility] Number: [id number] Hill, [place] [id number] Repository 77141Lbk: (330) Date:6294-33-60WG [phone] () [address] [place] [address] 60378ZQ: 04/20/2018 Secondary NOT GIVENUNK [place] Insurance:SELF PAY [facility] Number: Effective Repository Date:2018-02-16 04/18/2018 TESSA [place] TESSA [facility] HELMANDOB: [facility] HELMANDOB: Hospital [facility] [id number] Repository [place] Number: [address] [place] [id number] [facility] CENTERVI 64927Voi: (330) Date: [place] [address] [phone] () 04/13/2018 TESSA M Primary Insurance:[facility] TESSA Telles [place] [id number] [facility]: [facility] Number: [id number] Hill, [place] [id number] Repository 21569Euu: (330) Date:1732-37-63PD [phone] () [address] [place], [place] [address]P: 04/13/2018 Secondary NOT GIVENUNK [place] Insurance:SELF PAY [facility] Number: Effective Repository Date:2018-04-13 04/13/2018 TESSA M Primary Insurance:[facility] TESSA Telles [place] [id number] [facility]: [facility] Number: [id number] Hill, [place] [id number] Repository 04330Ypj: (330) Date:9625-95-37CN [phone] () [address] [place] [address] 94468NK: 04/13/2018 Secondary NOT GIVENUNK [place] Insurance:SELF PAY [facility] Number: Effective Repository Date:2018-04-13 04/11/2018 TESSA [place] T[place] [facility] HELMANDOB: [facility] HELMANDOB: Hospital [facility] [id number] Repository [place] Number: [address] [place] [id number] ROADDANNEMORAVI 39709Gfb: (330) Date: [place] [address] [phone] () 03/28/2018 TESSA M Primary Insurance:[facility] TESSA Telles Derrell [id number] [facility] PLANPoly HELMANDOB: [facility] Number: [id number] [facility] HospitalDARIONstreeter, [place] [id number] Repository 46283Nkz: (330) Date:1985-01-09IH [phone] () [address] [place] [address] 32691TR: 03/28/2018 Secondary NOT GIVENUNK [place] Insurance:SELF PAY [facility] Number: Effective Repository Date:2018-03-28 03/28/2018 TESSA [place] Insurance:[place] TESSAKIRSTIN [facility] HELMANDOB: [facility] HELMANDOB: Hospital [facility] [id number] Repository [place] Number: [address] [place] [id number] ROADMARSHALLV[address] [address]Uix: (330) Date: [place] [address] [phone] () 03/21/2018 TESSA Primary Insurance:[place] TESSA [facility] HELMANDOB: [facility] HELMANDOB: Hospital [facility] PLANPolhorn memorial hospital [id number] Repository [place] Number: [address] [place] [id number] RO[address]MARSH[address] [address]Aiy: (330) Date: [place] [address] [phone] (HP) 03/14/2018 TESSA M Primary Insurance:[facility] TESSA Telles [place] [id number] [facility] HELMANDOB: [facility] Number: [id number] Hill, [place] [id number] Repository 75220Mfs: (330) Date:7223-12-77FY [phone] () [address] [place] [address] 91849YO: 03/14/2018 Secondary NOT GIVENUNK [place] Insurance:SELF PAY [facility] Number: Effective Repository Date:2018-03-14 03/14/2018 TESSA [place] T[place] [facility] HELMANDOB: [facility] HELMANDOB: Hospital [facility] [id number] Repository [place] Number: [address] [place] [id number] [address] [address]Vsq: (330) Date: , [place] [address] [phone] () 03/07/2018 TESSA Primary Insurance:[place] T[place]SA [facility] HELMANDOB: [facility] HELMANDOB: Hospital [facility] PL[facility]el[facility] [id number] Repository [facility] Number: [address] [place] [id number] ROADHONORHEALTH SCOTTSDALE SHEA MEDICAL CENTERSHALLVILL [address]Noo: (330) Date: [place] [address] [phone] (HP) 03/04/2018 Tessa Primary [facility] 1manDOB: Insurance:[facility] ClinicmanDOB: System [facility] [id number] Repository [place] Number: [address] [place], [place] [id number] [place], [place] [address]Nmj: (330) Date:Plan 25914Ktk: () Name:[facility] [id number] () [id number] [place] [address] 39586IF: 02/28/2018 TESSA M Primary Insurance:[facility] TESSA M [place] [id number] [facility] Number: [id number] Hospital [facility] HOSPITALDARIONstreeter, [place] [id number] Repository 80396Vgp: (330) Date:9191-68-68SY [phone] () [address] [place] [address] 84313YU: 02/28/2018 Secondary NOT GIVENUNK [place] Insurance:SELF PAY [facility] Number: Effective Repository Date:2018-02-28 02/28/2018 TESSA [place] T[place]SA [facility] HELMANDOB: [facility] HELMANDOB: Hospital [facility] [id number] Repository [facility] Number: [address] [place] [id number] ROADHONORHEALTH SCOTTSDALE SHEA MEDICAL CENTERSHALLVILL [address]Uwh: (330) Date: [place] [address] [phone] () 02/23/2018 TESSA Telles Primary Insurance:[facility] TESSA Telles [place] [id number] COMMUNITY PLANPolicy HELMANDOB: [facility] Number: [id number] [place], [place] [id number] Repository 87119Klj: (330) Date:7917-03-57UF [phone] () [address] [place] [address] 38628AV: 02/23/2018 Secondary NOT GIVENUNK [place] Insurance:SELF PAY [facility] Number: Effective Repository Date:2018-02-23 02/23/2018 TESSA Telles Primary Insurance:[facility] TESSA Telles Der[place] [id number] COMMUNITY PLANPolicy HELMANDOB: [facility] Number: [id number] [place], [place] [id number] Repository 43152Kar: (330) Date:1151-22-23IK [phone] () [address] [place] [address] 65313IQ: 02/23/2018 Secondary NOT GIVENUNK [place] Insurance:SELF PAY [facility] Number: Effective Repository Date:2018-02-16 02/16/2018 TESSA Telles Primary Insurance:[facility] TESSA Telles [place] [id number] [facility] PLANTuba City Regional Health Care CorporationicNortheast Baptist HospitalOB: [facility] Number: [id number] [place], [place] [id number] Repository 50066Qiz: (330) Date:3372-76-41LA [phone] () [address] [place] [address] 90008OQ: 02/16/2018 Secondary NOT GIVENUNK [place] Insurance:SELF PAY [facility] Number: Effective Repository Date:2018-02-16 02/16/2018 TESSA Telles Primary Insurance:[facility] TESSA Telles [place] [id number] [facility] PLANCuba [facility]: [facility] Number: [id number] [place], [place] [id number] Repository 46098Bwl: (330) Date:3214-07-12EL [phone] () [address] [place] [address] 51919AK: 02/16/2018 Secondary NOT GIVENUNK [place] Insurance:SELF PAY [facility] Number: Effective Repository Date:2018-01-28 02/16/2018 TESSA M Primary Insurance:[facility] TESSA Telles [place] [id number] [facility] HELMANDOB: [facility] Number: [id number] [place], [place] [id number] Repository 62932Bfw: (330) Date:3307-68-15HK [phone] () [address] [place] [address] 01690QQ: 02/16/2018 Secondary NOT GIVENUNK [place] Insurance:SELF PAY [facility] Number: Effective Repository Date:2018-02-16 02/14/2018 TESSA [place] T[place] [facility] HELMANDOB: [facility] HELMANDOB: Hospital [facility] [id number] Repository [facility] Number: [address] MILLSCLEVELAND CLINIC MARYMOUNT HOSPITALDARION, [place] [id number] [facility] 28644Ytt: (330) Date: [place] [address] [phone] () 01/31/2018 TESSA Primary [place] [facility] HELMANDOB: [facility] HELMANDOB: Hospital [facility] [id number] Repository [facility] Number: [address] [place] [id number] [facility] CENTERVI [address]Hhj: (330) Date: [place] [address] [phone] () 01/19/2018 TESSA M Primary Insurance:[facility] TESSA Telles [place] [id number] [facility] HELMANDOB: [facility] Number: [id number] [place], [place] [id number] Repository 47110Mdd: (330) Date:5488-16-03CJ [phone] () [address] [place] [address] 06432HX: 01/19/2018 Secondary NOT GIVENUNK [place] Insurance:SELF PAY [facility] Number: Effective Repository Date:2018-01-19 01/19/2018 TESSA M Primary Insurance:[facility] TESSA Koki Derrell [id number] [facility] PLANDelaware [facility] HELMANDOB: [facility] Number: [id number] Hospital [facility] HOSPITALDARIONstreeter, [place] [id number] Repository 48746Mzp: (330) Date:0911-23-32DX [phone] () [address] [place] [address] 80161VP: 01/19/2018 Secondary NOT GIVENUNK [place] Insurance:SELF PAY [facility] Number: Effective Repository Date:2018-01-19 01/11/2018 TESSA [place] T[place]SA [facility] HELMANDOB: [facility] HELMANDOB: Hospital [facility] [id number] Repository [place] Number: [address] [place] [id number] RO[address]MAR[address] [address]Gjt: (330) Date: [place] [address] [phone] () 01/03/2018 TESSA Primary Insurance:[place] TESSA [facility] HELMANDOB: [facility] HELMANDOB: Hospital [facility] PLANPolic [id number] Repository [place] Number: [address] [place] [id number] [address] [address]Hkc: (330) Date: [place] [address] [phone] () 12/27/2017 TESSA Primary Insurance[place] TESSA [facility] HELMANDOB: [facility] HELMANDOB: Hospital [facility] PLANDel[facility] [id number] Repository [place] Number: [address] [place] [id number] [address] [address]Ytf: (330) Date: [place] [address] [phone] () 12/22/2017 TESSA M Primary Insurance:[facility] TESSA Telles Derrell [id number] [facility] HELMANDOB: [facility] Number: [id number] [place], [place] [id number] Repository 43391Wpu: (330) Date:6171-98-41RZ [phone] () [address] [place] [address] 65591HX: 12/22/2017 Secondary NOT GIVENUNK [place] Insurance:SELF PAY [facility] Number: Effective Repository Date:2017-12-22 12/06/2017 TESSA [place] TESSA [facility] HELMANDOB: [facility] HELMANDOB: Hospital COMMUNITY PLANPolicy [id number] Repository [place] Number: [address] [place], [place] [id number] [facility] 39943Crp: (330) Date: [place] [address] [phone] () 11/24/2017 TESSA Telles Primary Insurance:[facility] TESSA M [place] [id number] [facility] [facility] [place] Number: [id number] [place], [place] [id number] Repository 96377Ltb: (330) Date:3800-20-12KE [phone] () [address] [place] [address] 11365BE: 11/24/2017 Secondary NOT GIVENUNK Koloa Insurance:SELF PAY [facility] Number: Effective Repository Date:2017-11-24 10/27/2017 TESSA Telles Primary Insurance:[facility] TESSA Telles Koloa [id number] [facility] Number: [id number] [place], [place] [id number] Repository 33515Cpc: (330) Date:4305-79-11KO [phone] () [address] [place] [address] 99402WD: 10/27/2017 Secondary NOT GIVENUNK Koloa Insurance:SELF PAY [facility] Number: Effective Repository Date:2017-10-27 10/20/2017 TESSA Telles Primary Insurance:[facility] TESSA Telles Koloa [id number] [facility] [place] Number: [id number] Hill, [place] [id number] Repository 00796Ooj: (330) Date:3458-50-37KO [phone] () [address] [place] [address] 15319BA: 10/20/2017 Secondary NOT GIVENUNK Koloa Insurance:SELF PAY [facility] Number: Effective Repository Date:2017-10-20 10/20/2017 TESSA Telles Primary [facility]ESSA Telles [facility] HELMANDOB: [facility] [id number] [address] Number: [address] [id number] [address] [address]~KENRICK@ Date:2017-10-20 [id number]: (475) CHOLOel: [id number] [phone] Name:XPO Box ()Tel: (000) () [address] [place] [address] 000-0000 () 71698YK: 09/15/2017 TESSA Telles Primary Insurance:[facility] TESSA Telles Koloa [id number] [facility] [address] Number: [id number] [id number] Repository 836[address]Qvq: (330) Date:8037-49-95CA [phone] () [address] [place] [address] 39395TQ: 09/15/2017 Secondary NOT GIVENUNK Koloa Insurance:SELF PAY [facility] Number: Effective Repository Date:2017-09-13 09/08/2017 TESSA Telles Primary Insurance:[facility] TESSA Telles Derrell [id number] [facility] [address] Number: [id number] [id number] Repository 86853Rbx: (330) Date:0997-21-47EA [phone] () [address] [place] [address] 52703YX: 09/08/2017 Secondary NOT GIVENUNK Derrell Insurance:SELF PAY [facility] Number: Effective Repository Date:2017-09-07 09/07/2017 TESSA Telles Primary TESSA Telles [facility] Insurance:[facility] HELMANDOB: [facility] [id number] Number: [address] [id number] [address] [address]~KENRICK@ Date:2017-09-06Tel: (330) AILPINKYel: [id number] [phone] Name:XPO Box ()Tel: (000) () [address] [place] [address] 000-0000 () 37256VX: 09/03/2017 TESSA Telles Primary Insurance:[facility] TESSA Telles [facility]rellCH[facility]01 [facility]: [facility] StAp Number: [id number] [id number] Repository 312[address]Pvh: (330) Date:4496-03-71SA [phone] () [address] [place] [address] 64511JJ: 09/03/2017 Secondary NOT GIVENUNK Koloa Insurance:SELF PAY [facility] Number: Effective Repository Date:2017-09-03 09/01/2017 TESSA Telles Primary Insurance:[facility] TESSA Telles [facility]oaCHRIST[facility]1801 [facility]: [facility] [address] Number: [id number] [id number] Repository 14[address]Ufs: (330) Date:6337-26-26TZ [phone] () [address] [place] [address] 38507XU: 09/01/2017 Secondary NOT GIVENUNK Derrell Insurance:SELF PAY [facility] Number: Effective Repository Date:2017-07-08 07/14/2017 TESSA Telles Primary TESSA Telles [facility] Insurance:[facility] HELMANDOB: [facility] [id number] [address] Number: [address] [id number], [place] [id number] [place]1WWAQKHP, [place] [address]~FOAMBEE@ Date:2017-07-14Tel: (330) COMTel: [id number] [phone] Name:XPO Box (HP)Tel: (000) (HP) [address] [place] [address] 000-0000 (WP) 23394MG: 07/07/2017 TESSA M Primary [facility] ServicesM[facility]OB: Insurance:[facility] HELMANDOB: [facility] [id number] Number: [address] [place]0EYZWOHN, [place] [id number] [id number], [place] [address]~FOAMBEE@ Date:2017-07-07Tel: (330) AIL.COMTel: [id number] [phone] Name:XPO Box (HP)Tel: (000) (HP) [address] [place] [address] 000-0000 (WP) 27378AI: 06/09/2017 TESSA M Primary [facility] ServicesMANDOB: Insurance:[employer] [facility] HELMANDOB: [facility] [id number] [address] Number: [address] [id number], [place] [id number] [place] [address]~FOAMBEE@ Date:2017-06-09Tel: (330) AIL.COMTel: [id number] [phone] Name:XPO Box (HP)Tel: (000) (HP) [address], [place] 000-0000 (WP) 02167RL: 06/06/2017 Tessa Primary Insurance:[facility] Tessa Derrell [id number] [facility]AND[facility] HelmanDOB: [facility] [address] Number: [id number] [id number] Repository [address]Hjn: (330) Date:0420-68-10DF [phone] () [address] [place] [address] 51749GQ: 06/06/2017 Secondary NOT GIVENUNK Derrell Insurance:SELF PAY [facility] Number: Effective Repository Date:2017-06-06
== END ==
PROVIDERS: Referring Provider Obstetrics & Gynecology; Visit Provider Obstetrics & Gynecology
DX: Z34.90 Encounter for supervision of normal pregnancy, unspecified, unspecified trimester (principal)
CPT/HCPCS: 87081

== ENCOUNTER 2018-04-26 07:18 | Inpatient (IN) | payer MEDICAID, SELFPAY ==
[2018-04-20 10:19] VITALS: BMI 26.7
[2018-04-26 05:26] VITALS: BMI 26.1
[2018-04-26 07:56] LABS: Hematocrit 38.8 % (37-47); Hemoglobin 13.3 g/dl (12.0-15.0); Mean Corp Hgb Conc 34.3 g/gl (32-36); Mean Corpuscular Hgb 30.5 pg (27.0-32.0); Mean Platelet Vol. 11.1 fl (6.2-12.0); Platelet Count 155 K/mm3 (150-450); RBC Distribution Width CV 12.8 % (11.6-14.6); RBC Distribution Width SD 40.9 fl (35.1-43.9); Red Blood Count 4.36 M/mm3 (4.2-5.4); White Blood Count 10.3 K/mm3 (4.4-11.0)
[2018-04-26 08:02] LABS: Scan Indicated on CBC? Y/N NO
[2018-04-26] MEDS: Lactated Ringers 1,000 ML 50 ML IV ×3 (08:53→14:15)
[2018-04-26] MEDS: fentaNYL-bupivacaine (epidural) 100 ML BAG EPIDURAL ×2 (09:30→14:00)
[2018-04-26] MEDS: Oxytocin 30 units/NS 500 ml 30 UNITS/500 ML IV.SOLN 334 UNITS IV (16:20)
[2018-04-26] MEDS: Oxytocin 30 units/NS 500 ml 30 UNITS/500 ML IV.SOLN 167 UNITS IV (16:50)
[2018-04-26 16:59] LABS: Hematocrit 37.3 % (37-47); Hemoglobin 12.7 g/dl (12.0-15.0); Mean Corpuscular Hgb 30.7 pg (27.0-32.0); Mean Corpuscular Volume 90.1 fL (81-99); Mean Platelet Vol. 11.1 fl (6.2-12.0); Platelet Count 132 K/mm3 (150-450); RBC Distribution Width CV 12.7 % (11.6-14.6); RBC Distribution Width SD 41.4 fl (35.1-43.9); Red Blood Count 4.14 M/mm3 (4.2-5.4); White Blood Count 12.6 K/mm3 (4.4-11.0)
[2018-04-26 17:08] LABS: Scan Indicated on CBC? Y/N NO
[2018-04-26] MEDS: Acetaminophen 500 MG Tablet 1000 MG PO (18:43)
[2018-04-26] MEDS: Senna/Docusate Sodium 1 Tablet PO (18:43)
[2018-04-26 19:55] VITALS: BP 126/68; PULSE 78; RESP 16; TEMP 37.1
--- NOTE | 2018-04-26 22:05 | PCM.HP.OB ---
- Problem List (1) Active labor Status: Acute (2) Anxiety and depression Status: Acute Comment: celexa, counseled regarding risks of medication, counseling encouraged (3) PCK (polycystic kidney disease) Status: Acute Comment: mfm cocare (4) Status: Acute Qualifiers: Comment: anatomy scan scheduleds/p mfm consult- Cardio and Nephro appt needed- co managment of care with MFM. Normal BPP and growth. (5) Previous delivery affecting Status: Acute Comment: previous then cs for breech, plan TOLAC (6) History of Status: Acute Comment: kidney issues, poor lung development, shortly after . plan MFM anatomy scan, nl NIPT (7) Supervision of normal Status: Acute Qualifiers: Comment: PRR JEWELS 05/07/18 boy Jose C LANI Sweet, ([facility]) Roberto (2 kids) History Date of Admission: 04/26/18 Final JEWELS: 04/23/18 Gestational age: 40 Weeks and 3 Days History of this : This is a 27 year-old, , at 38 weeks gestational age presents IAL. she has a history of a vaginal and a . she co some vagina lbleeding this morning and irregular ctx and then made some cervical change later. Overall there is a reassuring heart rate pattern, Medical History: Medical History (Last Reviewed 04/20/18 @ 09:54 by Leatha Lyles) Anxiety F41.9 Polycystic kidney disease Q61.3 Surgical History: Surgical History (Last Reviewed 04/20/18 @ 09:54 by Leatha Lyles) delivery delivered O82 Allergies No Known Allergies Allergy (Verified 04/26/18 05:27) Home Medications: Home Medications Vits [Prenatabs FA] 1 tab PO DAILY 04/13/17 citalopram 20 mg tablet 20 mg PO DAILY #30 tab 03/14/18 Smoking Status: Former smoker Alcohol: None Number of Fetus(es): 1 Heart Tracins moderate variability reactive no decels cat i TOCO Analysis: q4-5 History Past Pregnancies: Past Pregnancies Pregancy History 6 Elective abortions Hx Para 2 Spontaneous abortions Hx # Term Pregnancies 2 Ectopic pregnancies Hx # Pregnancies Multiple births # of living children 1 Past Pregnancies Del. Date Name GA/Weeks Outcome Route Bth Weight Gen Labor Lgth Anesthesia Del Locatn Provider FOB 09/16/11 Kee 39 live - full term 6lbs 7oz Male 18 hours epidural [facility] Therapeutic Recreation Assistant Ren 12/15/14 Mark 38 live - full term 7lbs 8oz Male [address] [facility] Nakul Mcclure Unknown 2018 Miscarriage Delivery Date: 12/15/14 On 12/22/17 @ 11:30 Gretchen Addison breech, enlarged Delivery Date: 09/16/11 On 12/22/17 @ 11:29 Gretchen Addison No issues during or delivery. Delivery Date: No notes to display Labs: Mom's Problem List Problem Status Onset Code Active labor Acute Mom's Labs & Results 04/26/18 04/26/18 04/26/18 07:35 07:35 16:40 WBC 10.3 12.6 H RBC 4.36 4.14 L Hgb 13.3 12.7 Hct 38.8 37.3 MCV 89.0 90.1 MCH 30.5 30.7 MCHC 34.3 34.0 RDW 12.8 12.7 RDW Differential 40.9 41.4 Plt Count 155 132 L MPV 11.1 11.1 Blood Type A POSITIVE Antibody Screen NEGATIVE Course Did the patient receive Yes care? Labs Blood Type: A RH: POSITIVE RPR/VDRL/Syphilis Nonreactive Rubella status Immune HbSAg Negative Date Done: 10/20/17 Chlamydia Negative Gonorrhea Negative HIV/AIDS Non-Reactive Group B Strep: Negative Current Obstetrical History Gestational Diabetes No Incompetent Cervix No Infertility No IUGR No Macrosomia No Hypertension/Pre-eclampsia No Placenta Previa/Abruption No PTL/PROM No Uterine anomaly No Oligohydramnios No Polyhydramnios No Multiple gestation No Past Medical History Asthma No Diabetes No Hypertension No Heart disease No Mitral valve prolapse No Neurologic/Seizure disorder/ No Migraines Kidney disease Yes: Polycystic kidney disease Liver disease No Varicosities No Clotting disorders/Hx of DVT No Thyroid Dysfunction No Other medical diseases No Psychiatric disorders Yes: anxiety: Celexa x 2 mths. Pt states doing well with medication. Major trauma No Abnormal PAP smear No Sleep apnea No Mammogram in the last 2 years No Social History Marital Status: Alleged father Roberto Pickering Hx Smoking No Smoking Status Former smoker Expected Infant Delivery Method: Describe any other labor & delivery plans:: OB Visit. JEWELS Calculator. Estimated Delivery Date 05/07/18. Based on LMP (certain) 07/31/17. Current WG 37w 4d. Number 1. Expected Delivery Route/Plan. TOLAC consent form signed. edcation given. Specific Issue/Plans. flu vaccine: declined. tdap vaccine: considering. rhogam: na. LARC form signed: declined. labor support person: Neptali. pain management: epidural. cut cord/dad catch: yes. : yes. PP control planned: pill or nuvaring. discussed possible routes of delivery and associated risks: . special requests: [] Review of Systems Constitutional: Denies: Fever, Malaise Eyes: Denies: Blurred vision, Vision Change HEENT: Denies: Head Aches, Visual Changes Cardiovascular: Denies: Chest Pain, Palpitations Respiratory: Denies: Cough, Shortness of Breath, Wheezing Gastrointestinal: Denies: Abdominal Pain, Diarrhea, Nausea, Vomiting Genitourinary: Denies: Dysuria, Hematuria Gynecological: Reports: Vaginal bleeding Musculoskeletal: Denies: Joint Pain, Muscle pain Skin: Denies: Lesions, Rash Neurological: Denies: Blurred vision, Focal weakness, Headaches Psychiatric: Denies: Anxiety, Depression Endocrine: Denies: Heat/ Cold Intolerance Hematologic/ Lymphatic: Denies: Easy Bruising, Easy Bleeding Physical Exam Vitals: Vital Signs Temp Pulse Resp BP 98.7 F 78 16 126/68 H 04/26/18 19:55 04/26/18 19:55 04/26/18 19:55 04/26/18 19:55 General: Alert, Cooperative, No apparent distress HEENT: Atraumatic, Normocephalic. Negative for: Thyromegaly, Lymphadenopathy Cardiovascular: Regular rate Lungs: Normal air movement Abdomen: Soft, Non Tender, Gravid Neurological: Deep Tendon Reflexes 2+/4 and Symmetrical, Neuro grossly intact. Negative for: Clonus CATERING AND EVENTS MANAGER: Normal external genitalia - positive bright red bleeding intermittent. Negative for: Vulvar lesions Estimated gestational size: Appropriate for gestational size Presentation: Cephalic Cervix Dilation (cm): 4 Station: -1 Effacement (%): 70 Assessment/Plan All Active Problems (Last Reviewed 04/20/18 @ 09:54 by Leatha Lyles) Active labor (Acute) Anxiety and depression (Acute) PCK (polycystic kidney disease) (Acute) (Acute) Previous delivery affecting (Acute) History of (Acute) Supervision of normal (Acute) This is a 27 year-old, at 38 weeks gestational age IAL Patient presents IAL, plan expectant management for , pitocinprn, arom bloody fluid. Pain management: plans epidural. GBS negative. Management of any complications: none I have reviewed the [facility] and made any clinically relevant updates.
--- NOTE | 2018-04-26 22:11 | HP.PCM_ITS ---
- Problem List (1) Active labor Status: Acute (2) Anxiety and depression Status: Acute Comment: celexa, counseled regarding risks of medication, counseling encouraged (3) PCK (polycystic kidney disease) Status: Acute Comment: mfm cocare (4) Status: Acute Qualifiers: Comment: anatomy scan scheduleds/p mfm consult- Cardio and Nephro appt needed- co managment of care with MFM. Normal BPP and growth. (5) Previous delivery affecting Status: Acute Comment: previous then cs for breech, plan TOLAC (6) History of Status: Acute Comment: kidney issues, poor lung development, shortly after . plan MFM anatomy scan, nl NIPT (7) Supervision of normal Status: Acute Qualifiers: Comment: PRR JEWELS 05/07/18 boy Jose C LANI Sweet, ([facility]) Roberto (2 kids) History Date of Admission: 04/26/18 Final JEWELS: 04/23/18 Gestational age: 40 Weeks and 3 Days History of this : This is a 27 year-old, , at 38 weeks gestational age presents IAL. she has a history of a vaginal and a . she co some vagina lbleeding this morning and irregular ctx and then made some cervical change later. Overall there is a reassuring heart rate pattern, Medical History: Medical History (Last Reviewed 04/20/18 @ 09:54 by Leatha Lyles) Anxiety F41.9 Polycystic kidney disease Q61.3 Surgical History: Surgical History (Last Reviewed 04/20/18 @ 09:54 by Leatha Lyles) delivery delivered O82 Allergies No Known Allergies Allergy (Verified 04/26/18 05:27) Home Medications: Home Medications Vits [Prenatabs FA] 1 tab PO DAILY 04/13/17 citalopram 20 mg tablet 20 mg PO DAILY #30 tab 03/14/18 Smoking Status: Former smoker Alcohol: None Number of Fetus(es): 1 Heart Tracins moderate variability reactive no decels cat i TOCO Analysis: q4-5 History Past Pregnancies: Past Pregnancies Pregancy History 6 Elective abortions Hx Para 2 Spontaneous abortions Hx # Term Pregnancies 2 Ectopic pregnancies Hx # Pregnancies Multiple births # of living children 1 Past Pregnancies Del. Date Name GA/Weeks Outcome Route Bth Weight Gen Labor Lgth Anesthesia Del Locatn Provider FOB 09/16/11 Kee 39 live - full term 6lbs 7oz Male [address] [facility] Distribution Technician Ren 12/15/14 Mark 38 live - full term 7lbs 8oz Male 12 hours spinal [facility] Nakul Mcclure Unknown 2018 Miscarriage Delivery Date: 12/15/14 On 12/22/17 @ 11:30 Gretchen Addison breech, enlarged Delivery Date: 09/16/11 On 12/22/17 @ 11:29 Gretchen Addison No issues during or delivery. Delivery Date: No notes to display Labs: Mom's Problem List Problem Status Onset Code Active labor Acute Mom's Labs & Results 04/26/18 04/26/18 04/26/18 07:35 07:35 16:40 WBC 10.3 12.6 H RBC 4.36 4.14 L Hgb 13.3 12.7 Hct 38.8 37.3 MCV 89.0 90.1 MCH 30.5 30.7 MCHC 34.3 34.0 RDW 12.8 12.7 RDW Differential 40.9 41.4 Plt Count 155 132 L MPV 11.1 11.1 Blood Type A POSITIVE Antibody Screen NEGATIVE Course Did the patient receive Yes care? Labs Blood Type: A RH: POSITIVE RPR/VDRL/Syphilis Nonreactive Rubella status Immune HbSAg Negative Date Done: 10/20/17 Chlamydia Negative Gonorrhea Negative HIV/AIDS Non-Reactive Group B Strep: Negative Current Obstetrical History Gestational Diabetes No Incompetent Cervix No Infertility No IUGR No Macrosomia No Hypertension/Pre-eclampsia No Placenta Previa/Abruption No PTL/PROM No Uterine anomaly No Oligohydramnios No Polyhydramnios No Multiple gestation No Past Medical History Asthma No Diabetes No Hypertension No Heart disease No Mitral valve prolapse No Neurologic/Seizure disorder/ No Migraines Kidney disease Yes: Polycystic kidney disease Liver disease No Varicosities No Clotting disorders/Hx of DVT No Thyroid Dysfunction No Other medical diseases No Psychiatric disorders Yes: anxiety: Celexa x 2 mths. Pt states doing well with medication. Major trauma No Abnormal PAP smear No Sleep apnea No Mammogram in the last 2 years No Social History Marital Status: Alleged father Roberot Pickering Hx Smoking No Smoking Status Former smoker Expected Infant Delivery Method: Describe any other labor & delivery plans:: OB Visit. JEWELS Calculator. Estimated Delivery Date 05/07/18. Based on LMP (certain) 07/31/17. Current WG 37w 4d. Number 1. Expected Delivery Route/Plan. TOLAC consent form signed. edcation given. Specific Issue/Plans. flu vaccine: declined. tdap vaccine: considering. rhogam: na. LARC form signed: declined. labor support person: Neptali. pain management: epidural. cut cord/dad catch: yes. : yes. PP control planned: pill or nuvaring. discussed possible routes of delivery and associated risks: . special requests: [] Review of Systems Constitutional: Denies: Fever, Malaise Eyes: Denies: Blurred vision, Vision Change HEENT: Denies: Head Aches, Visual Changes Cardiovascular: Denies: Chest Pain, Palpitations Respiratory: Denies: Cough, Shortness of Breath, Wheezing Gastrointestinal: Denies: Abdominal Pain, Diarrhea, Nausea, Vomiting Genitourinary: Denies: Dysuria, Hematuria Gynecological: Reports: Vaginal bleeding Musculoskeletal: Denies: Joint Pain, Muscle pain Skin: Denies: Lesions, Rash Neurological: Denies: Blurred vision, Focal weakness, Headaches Psychiatric: Denies: Anxiety, Depression Endocrine: Denies: Heat/ Cold Intolerance Hematologic/ Lymphatic: Denies: Easy Bruising, Easy Bleeding Physical Exam Vitals: Vital Signs Temp Pulse Resp BP 98.7 F 78 16 126/68 H 04/26/18 19:55 04/26/18 19:55 04/26/18 19:55 04/26/18 19:55 General: Alert, Cooperative, No apparent distress HEENT: Atraumatic, Normocephalic. Negative for: Thyromegaly, Lymphadenopathy Cardiovascular: Regular rate Lungs: Normal air movement Abdomen: Soft, Non Tender, Gravid Neurological: Deep Tendon Reflexes 2+/4 and Symmetrical, Neuro grossly intact. Negative for: Clonus BRICK TESTER: Normal external genitalia - positive bright red bleeding intermittent. Negative for: Vulvar lesions Estimated gestational size: Appropriate for gestational size Presentation: Cephalic Cervix Dilation (cm): 4 Station: -1 Effacement (%): 70 Assessment/Plan All Active Problems (Last Reviewed 04/20/18 @ 09:54 by Leatha Lyles) Active labor (Acute) Anxiety and depression (Acute) PCK (polycystic kidney disease) (Acute) (Acute) Previous delivery affecting (Acute) History of (Acute) Supervision of normal (Acute) This is a 27 year-old, at 38 weeks gestational age IAL Patient presents IAL, plan expectant management for , pitocinprn, arom bloody fluid. Pain management: plans epidural. GBS negative. Management of any complications: none I have reviewed the [facility] and made any clinically relevant updates.
--- NOTE | 2018-04-26 22:27 | PCM.OB.VAG ---
- Problem List (1) Active labor Status: Acute (2) Anxiety and depression Status: Acute Comment: celexa, counseled regarding risks of medication, counseling encouraged (3) PCK (polycystic kidney disease) Status: Acute Comment: mfm cocare (4) Status: Acute Qualifiers: Comment: anatomy scan scheduleds/p mfm consult- Cardio and Nephro appt needed- co managment of care with MFM. Normal BPP and growth. (5) Previous delivery affecting Status: Acute Comment: previous then cs for breech, plan TOLAC (6) History of Status: Acute Comment: kidney issues, poor lung development, shortly after . plan MFM anatomy scan, nl NIPT (7) Supervision of normal Status: Acute Qualifiers: Comment: PRR JEWELS 05/07/18 boy Jose C LANI Sweet, ([facility]) Roberto (2 kids) Vaginal Delivery Maternal Presentation: Active Labor tolac Amniotic Membrane Rupture Type: Artificial Amniotic Fluid Description: Bloody Final JEWELS: 04/23/18 Gestational age: 40 Weeks and 3 Days Date of Procedure: 04/26/18 Pre-Operative Diagnosis: tolac Post-Operative Diagnosis: Surgery/ Procedure Performed: Vacuum Assisted Vaginal Delivery - Type of Anesthesia: Epidural Description of Procedure: Patient began pushing and developed a bradycardia into the 90s with moderate variability. she started pushing and the vertex was at a +3 station, vacuum applied and two pop offs were encoutnered and a midline episiotomy was cut. she pushed again and delivered the head in the KESHA presentation. The head was delivered atraumatically. The anterior and posterior shoulders delivered without complication followed by the rest of the infant and the was placed on the maternal abdomen. Delayed cord clamping was employed for approximately 60 seconds. Cord was clamped and cut and gentle traction was applied to the cord and the placenta delivered spontaneously immediately following it was noted to be intact with three-vessel cord. The perineum and vagina were inspected and it was noted to have a third degree laceration involving up to the anal mucosa which was reapproximated with 3-0 vicryl rapide and then the anal sphincter was reapproximated with 2-0 pds and the laceration was repaired without complication. EBL was 400 cc. Patient and tolerated delivery well. Presentation: CHRISTIANO Placental Delivery Description: Spontaneous Placenta Disposition: [facility] Cord Vessel Description: 3 Vessels Cord Entanglement: None Estimated Blood Loss: 400 Infant A gender: Male Episiotomy Description: Midline Laceration: Perineal Extension/lac, 3rd degree Medications given after delivery: IV Pitocin Complications: None
--- NOTE | 2018-04-26 22:33 | OP.PCM_ITS ---
- Problem List (1) Active labor Status: Acute (2) Anxiety and depression Status: Acute Comment: celexa, counseled regarding risks of medication, counseling encouraged (3) PCK (polycystic kidney disease) Status: Acute Comment: mfm cocare (4) Status: Acute Qualifiers: Comment: anatomy scan scheduleds/p mfm consult- Cardio and Nephro appt needed- co managment of care with MFM. Normal BPP and growth. (5) Previous delivery affecting Status: Acute Comment: previous then cs for breech, plan TOLAC (6) History of Status: Acute Comment: kidney issues, poor lung development, shortly after . plan MFM anatomy scan, nl NIPT (7) Supervision of normal Status: Acute Qualifiers: Comment: PRR JEWELS 05/07/18 [facility] Roberto (2 kids) Vaginal Delivery Maternal Presentation: Active Labor tolac Amniotic Membrane Rupture Type: Artificial Amniotic Fluid Description: Bloody Final JEWELS: 04/23/18 Gestational age: 40 Weeks and 3 Days Date of Procedure: 04/26/18 Pre-Operative Diagnosis: tolac Post-Operative Diagnosis: Surgery/ Procedure Performed: Vacuum Assisted Vaginal Delivery - Type of Anesthesia: Epidural Description of Procedure: Patient began pushing and developed a bradycardia into the 90s with moderate variability. she started pushing and the vertex was at a +3 station, vacuum applied and two pop offs were encoutnered and a midline episiotomy was cut. she pushed again and delivered the head in the KESHA presentation. The head was delivered atraumatically. The anterior and posterior shoulders delivered without complication followed by the rest of the infant and the was placed on the maternal abdomen. Delayed cord clamping was employed for approximately 60 seconds. Cord was clamped and cut and gentle traction was applied to the cord and the placenta delivered spontaneously immediately following it was noted to be intact with three-vessel cord. The perineum and vagina were inspected and it was noted to have a third degree laceration involving up to the anal mucosa which was reapproximated with 3-0 vicryl rapide and then the anal sphincter was reapproximated with 2-0 pds and the laceration was repaired without complication. EBL was 400 cc. Patient and tolerated delivery well. Presentation: CHRISTINAO Placental Delivery Description: Spontaneous Placenta Disposition: [facility] Cord Vessel Description: 3 Vessels Cord Entanglement: None Estimated Blood Loss: 400 Infant A gender: Male Episiotomy Description: Midline Laceration: Perineal Extension/lac, 3rd degree Medications given after delivery: IV Pitocin Complications: None
[2018-04-26] MEDS: Ketorolac 10 MG Tablet PO (23:04)
[2018-04-26 23:14] VITALS: BP 126/61; PULSE 68; RESP 18; TEMP 36.7; O2SAT 99
[2018-04-27] MEDS: oxyCODONE 5 MG Tablet PO ×6 (01:38→19:54)
[2018-04-27 02:00] VITALS: BP 126/61; PULSE 68; RESP 18; TEMP 36.7
[2018-04-27 04:10] VITALS: BP 124/81; PULSE 78; RESP 16; TEMP 36.6
[2018-04-27] MEDS: Ketorolac 10 MG Tablet PO ×3 (05:46→18:30)
[2018-04-27 08:50] VITALS: BP 118/75; PULSE 72; RESP 18; TEMP 36.6
[2018-04-27] MEDS: Senna/Docusate Sodium 1 Tablet PO (09:02)
[2018-04-27] MEDS: Acetaminophen 500 MG Tablet 1000 MG PO (09:02)
--- NOTE | 2018-04-27 09:26 | PCM.PN.OB ---
Patient Problems: Active and Suspected Problems (Last Reviewed 04/20/18 @ 09:54 by Leatha Lyles) Active labor (Acute) Subjective: No CP, SOB, doing well. Up and voiding. Some perineal discomfort-3 degree - Physical Exam General: Alert, Oriented x3 Abdomen: Soft, Non Tender, - - FF below U Vital Signs Temp Pulse Resp BP Pulse Ox 98 F 78 16 124/81 H 99 04/27/18 04:10 04/27/18 04:10 04/27/18 04:10 04/27/18 04:10 04/26/18 23:14 Oxygen Delivery Method Room Air Weight: 152 lb 1.903 oz Body Mass Index (BMI) 26.1 Intake and Output for Last 24 Hours 04/25/18 04/26/18 04/27/18 23:59 23:59 23:59 Intake Total 2455 / 2455 Output Total 1100 / 1100 Balance 1355 / 1355 Laboratory Tests Past 24 Hrs 04/26/18 16:40 WBC 12.6 H RBC 4.14 L Hgb 12.7 Hct 37.3 MCV 90.1 MCH 30.7 MCHC 34.0 RDW 12.7 RDW Differential 41.4 Plt Count 132 L MPV 11.1 Medical Necessity - Tobacco Use Smoking Status: Former smoker Assessment/Plan All Active Problems (Last Reviewed 04/20/18 @ 09:54 by Leatha Lyles) Active labor (Acute) Anxiety and depression (Acute) PCK (polycystic kidney disease) (Acute) (Acute) Previous delivery affecting (Acute) History of (Acute) Supervision of normal (Acute) VAVD PPD #1: Routine care. Ice prn.
[2018-04-27] MEDS: Citalopram 20 MG Tablet PO (10:53)
[2018-04-27 12:20] VITALS: BP 126/74; PULSE 76; RESP 16; TEMP 36.8; O2SAT 97
[2018-04-27 16:50] VITALS: BP 128/87; PULSE 87; RESP 18; TEMP 36.6; O2SAT 99
[2018-04-27 19:56] VITALS: BP 111/73; PULSE 89; RESP 17; TEMP 36.8; O2SAT 96
[2018-04-28] MEDS: Ketorolac 10 MG Tablet PO ×3 (00:05→12:49)
[2018-04-28] MEDS: oxyCODONE 5 MG Tablet PO ×4 (00:44→14:23)
[2018-04-28 02:40] VITALS: BP 115/70; PULSE 74; RESP 17; TEMP 36.8; O2SAT 95
[2018-04-28] MEDS: Acetaminophen 500 MG Tablet 1000 MG PO (05:40)
--- NOTE | 2018-04-28 08:06 | PCM.PN.OB ---
Patient Problems: Active and Suspected Problems (Last Reviewed 04/20/18 @ 09:54 by Leatha Lyles) Active labor (Acute) Subjective: NO SOB, CP. Pain controlled with percocet (3 degree episiotomy). Plans home today. No issues bowel/bladder habits. - Physical Exam General: Alert, Oriented x3 Abdomen: Soft, Non Tender, Non-Distended, - - FF below U Vital Signs Temp Pulse Resp BP Pulse Ox 98.3 F 74 17 115/70 95 04/28/18 02:40 04/28/18 02:40 04/28/18 02:40 04/28/18 02:40 04/28/18 02:40 Oxygen Delivery Method Room Air Weight: 152 lb 1.903 oz Body Mass Index (BMI) 26.1 Intake and Output for Last 24 Hours 04/26/18 04/27/18 04/28/18 23:59 23:59 23:59 Intake Total 2455 / 2455 Output Total 1100 / 1100 Balance 1355 / 1355 Medical Necessity - Tobacco Use Smoking Status: Former smoker Assessment/Plan All Active Problems (Last Reviewed 04/20/18 @ 09:54 by Leatha Lyles) Active labor (Acute) Anxiety and depression (Acute) PCK (polycystic kidney disease) (Acute) (Acute) Previous delivery affecting (Acute) History of (Acute) Supervision of normal (Acute) VAVD 3 degree episiotomy, PPD#2: routine care. . Home today
[2018-04-28 08:09] VITALS: BP 121/63; PULSE 65; RESP 16; TEMP 36.7
--- NOTE | 2018-04-28 08:09 | PCM.DCVAG ---
Additional Instructions: If you experience any of the following, contact your healthcare provider. Bleeding that soaks a pad every hour for 2 hours Fever 100.4 or higher Unrelieved incision or abdominal pain Swelling, redness, discharge or bleeding from your incision or episiotomy site Your incision begins to separate Problems urinating (including inability to urinate or burning while urinating). Visual changes Severe headache Flu-like symptoms Pain or redness in one of both of your breasts Pain, warmth, tenderness or swelling in your legs, especially the calf area Frequent nausea and vomiting Symptoms of depression or anxiety If you experience any of the following, call 911 or go to the nearest Emergency Room. Chest pain Problems breathing Seizure activity Partial or complete paralysis of a body part, slurred speech, weakness or drooping of the face, or a sudden inability to walk or hold your balance Allergies/Adverse Reactions: Allergies No Known Allergies Allergy (Verified 04/26/18 05:27) Medications to take at Discharge Vits [Prenatabs FA] 1 tab PO DAILY 04/13/17 citalopram 20 mg tablet 20 mg PO DAILY #30 tab 03/14/18 Naproxen [Naprosyn] 500 mg PO BID PRN PRN #60 tablet 04/28/18 Oxycodone HCl/Acetaminophen [Percocet 5/325] 1 - 2 tablet PO Q4H PRN PRN 3 Days #15 tablet 04/28/18 The following prescriptions were given: Oxycodone HCl/Acetaminophen [Percocet 5/325] 1 - 2 tablet PO Q4H PRN PRN 3 Days #15 tablet PRN Reason: Pain Naproxen [Naprosyn] 500 mg PO BID PRN PRN #60 tablet PRN Reason: Pain Primary Care Physician: Care Physician,No Primary [Primary Care Provider] - Test Results: Test results from this visit will be discussed in further detail at your follow-up appointment, if applicable.
--- NOTE | 2018-04-28 08:10 | DCINST_ITS ---
Additional Instructions: If you experience any of the following, contact your healthcare provider. * Bleeding that soaks a pad every hour for 2 hours * Fever 100.4 or higher * Unrelieved incision or abdominal pain * Swelling, redness, discharge or bleeding from your incision or episiotomy site * Your incision begins to separate * Problems urinating (including inability to urinate or burning while urinating). * Visual changes * Severe headache * Flu-like symptoms * Pain or redness in one of both of your breasts * Pain, warmth, tenderness or swelling in your legs, especially the calf area * Frequent nausea and vomiting * Symptoms of depression or anxiety If you experience any of the following, call 911 or go to the nearest Emergency Room. * Chest pain * Problems breathing * Seizure activity * Partial or complete paralysis of a body part, slurred speech, weakness or drooping of the face, or a sudden inability to walk or hold your balance Allergies/Adverse Reactions: Allergies No Known Allergies Allergy (Verified 04/26/18 05:27) Medications to take at Discharge Vits [Prenatabs FA] 1 tab PO DAILY 04/13/17 citalopram 20 mg tablet 20 mg PO DAILY #30 tab 03/14/18 Naproxen [Naprosyn] 500 mg PO BID PRN PRN #60 tablet 04/28/18 Oxycodone HCl/Acetaminophen [Percocet 5/325] 1 - 2 tablet PO Q4H PRN PRN 3 Days #15 tablet 04/28/18 The following prescriptions were given: Oxycodone HCl/Acetaminophen [Percocet 5/325] 1 - 2 tablet PO Q4H PRN PRN 3 Days #15 tablet PRN Reason: Pain Naproxen [Naprosyn] 500 mg PO BID PRN PRN #60 tablet PRN Reason: Pain Primary Care Physician: Care Physician,No Primary [Primary Care Provider] - Test Results: Test results from this visit will be discussed in further detail at your follow- up appointment, if applicable.
[2018-04-28] MEDS: Citalopram 20 MG Tablet PO (10:10)
[2018-04-28] MEDS: Prenatal Vits Tablet 1 TABLET PO (10:10)
[2018-04-28] MEDS: Senna/Docusate Sodium 1 Tablet PO (12:48)
[2018-04-28 14:00] VITALS: BP 125/75; PULSE 78; RESP 16; TEMP 36.7
[2018-04-28 15:15] VITALS: BP 125/75; PULSE 78; RESP 16; TEMP 36.7
--- OUTSIDE RECORDS SUMMARY | 2018-06-12 04:41 | XMS RPT_ITS ---
:1990 Author Organization OHIP Support Name Relationship Address Phone [facility] Unavailable [address] + [place] [address] MGQUIRE, YAW Unavailable [address] + [place] [address] SYBIL RYANNE Unavailable [address] + [place] [address] [facility] Unavailable [address] + [place] [address] MGQUIRE, YAW Unavailable [address] + [place] [address] SYBIL RYANNE Unavailable [address] + [place] [address] [facility] Unavailable [address] + [place] [address] MGQUIRE, YAW Unavailable [address] + [place] [address] SYBIL RYANNE Unavailable [address] + [place] [address] [facility] Unavailable [address] + [place] [address] MGQUIRE, YAW Unavailable [address] + [place] [address] SYBIL RYANNE Unavailable [address] + [place] [address] BULL RODRIGUEZ Unavailable [address] + [place] [address] [facility] Un[address] + [place] [address] MGQUIRE, YAW Unavailable [address] + [place] [address] SYBIL, RYANNE Unavailable [address] + [place] [address] [facility] Unavailable [address] + [place] [address] MGQUIRE, YAW Unavailable [address] + [place] [address] SYBIL, RYANNE Unavailable [address] + [place] [address] ANA M, BULL Unavailable [address] + [place] [address] [facility] Unavailable [address] + [place] [address] MGQUIRE, YAW Unavailable [address] + [place] [address] SYBIL, RYANNE Unavailable [address] + [place] [address] [facility] Unavailable [address] + [place] [address] MGQUIRE, YAW Unavailable [address] + [place] [address] SYBIL, RYANNE Unavailable [address] + [place] [address] ANA M, BULL Unavailable [address] + [place] [address] [facility] Unavailable [address] + [place] [address] MGQUIRE, YAW Unavailable [address] + [place] [address] SYBIL, RYANNE Unavailable [address] + [place] [address] ANA M, BULL Unavailable [address] + [place] [address] ANA M BULL Unavailable [address] + [place] [address] [facility] Unavailable [address] + [place] [address] MGQUIRE, YAW Unavailable [address] + [place] [address] KATHERINE DEVINERICIA Unavailable [address] + [place] [address] RUFINA RODRIGUEZUA Unavailable [address] + [place] [address] BRITTANY RODRIGUEZSHUA Unavailable [address] + [place] [address] [facility] Un[address] + [place] [address] MGQUIRE, YAW Unavailable [address] + [place] [address] KATHERINE DEVINERICIA Unavailable [address] + [place] [address] RUFINA RODRIGUEZUA Unavailable [address] + [place] [address] [facility] Un[address] + [place] [address] MGQUIRE, YAW Unavailable [address] + [place] [address] KATHERINE DEVINERICIA Unavailable Unavailable + [facility] Unavailable [address] + [place] [address] MGQUIRE, YAW Unavailable [address] + [place] [address] SYBIL RYANNE Unavailable Unavailable + [facility] Unavailable [address] + [place] [address] MGQUIRE, YAW Unavailable [address] + [address] [place] [address] KATHERINE DEVINERICIA Unavailable Unavailable + [facility] Unavailable [address] + [place] [address] MGQUIRE, YAW Unavailable [address] + [address] [place] [address] [facility] Unavailable [address] + [place] [address] MGQUIRE, YAW Unavailable [address] + [address] [place] [address] BULL RODRIGUEZ Unavailable [address] + [place] [address] RUFINA RODRIGUEZUA Unavailable [address] + [place] [address] [facility] Unavailable [address] + [place] [address] MGQUIRE, YAW Unavailable [address] + [address] [place] [address] [facility] Unavailable [address] + [place] [address] MGQUIRE, YAW Unavailable [address] + [address] [place] [address] BULL RODRIGUEZ Unavailable [address] + [place] [address] RUFINA RODRIGUEZUA Unavailable [address] + [place] [address] BRITTANY RODRIGUEZSHUA Unavailable [address] + [place] [address] [facility] Unavailable [address] + [place] [address] MGQUIRE, YAW Unavailable [address] + [address] [place] [address] RUFINA RODRIGUEZUA Unavailable [address] + [place] [address] [facility] Un[address] + [place] [address] MGQUIRE, YAW Unavailable [address] + [address] [place] [address] [facility] Unavailable [address] + [place] [address] MGQUIRE, YAW Unavailable [address] + [address] [place] [address] [facility] Unavailable [address] + [place] [address] MGQUIRE, YAW Unavailable [address] + [address] [place] [address] ANA M, RUFINA Unavailable [address] + [place] [address] ANA M, RUFINA Unavailable [address] + [place] [address] ANA M, HOOKER Unavailable [address] + [place] [address] [facility] Un[address] + [place] [address] MGQUIRE, YAW Unavailable [address] + [address] [place] [address] [facility] Un[address] + [place] [address] MGQUIRE, YAW Unavailable [address] + [address] [place] [address] ANA M, RUFINA Unavailable [address] + [place] [address] ANA M, RUFINA Unavailable [address] + [place] [address] ANA M, HOOKER Unavailable [address] + [place] [address] [facility] Un[address] + [place] [address] MGQUIRE, YAW Unavailable [address] + [address] [place] [address] [facility] Unavailable [address] + [place] [address] MGQUIRE, YAW Unavailable [address] + [address] [place] [address] ANA M, RUFINA Unavailable [address] + [place] [address] ANA M, RUFINA Unavailable [address] + [place] [address] ANA M, HOOKER Unavailable [address] + [place] [address] ANA M, RUFINA Unavailable [address] + [place] [address] ANA M, RUFINA Unavailable [address] [facility] [address] + [place] [address] ANA M, HOOKER Unavailable [address] + [place] [address] ANA M, RUFINA Unavailable [address] [facility] [address] + [place] [address] ANA M, RUFINA Unavailable [address] [facility] [address] + [place] [address] ANA M, HOOKER Unavailable [address] + [place] [address] Care Team Providers Name Role Phone ENRIQUE DONALDSON Attending Unavailable MARCCHRISTIANONY, HAYLIE E Referring Unavailable NO PRIMARY CARE, Primary Care Unavailable HILDA STEVE Attending Unavailable REFERRED, SELF Referring Unavailable NO PRIMARY CARE, Primary Care Unavailable SUSANNA BRAY Attending Unavailable MARCCHRISTIANONY, HAYLIE E Referring Unavailable NO PRIMARY CARE, Primary Care Unavailable CHUCHO CARRILLO Attending Unavailable KATARINA, SUSANNA Referring Unavailable NO PRIMARY CARE, Primary Care Unavailable TOM LAZO Attending Unavailable MARCANTHONY, HAYLIE E Referring Unavailable NO PRIMARY CARE, Primary Care Unavailable PAT MONTES Attending Unavailable MARCANTHONY, HAYLIE E Referring Unavailable NO PRIMARY CARE, Primary Care Unavailable SUSANNA BRAY Attending Unavailable DOMINIC, HAYLIE E Referring Unavailable NO PRIMARY CARE, [...] Unavailable NO PRIMARY CARE, Primary Care Unavailable PAT MONTES Attending Unavailable MARCANTHONY, HAYLIE E Referring Unavailable NO PRIMARY CARE, Primary Care Unavailable CASSANDRA VALDES Attending Unavailable MARCANTHONY, HAYLIE E Referring Unavailable NO PRIMARY CARE, MD Primary Care Unavailable MILAGROS MANRIQUE, LIDIA Osborn Attending Unavailable PHYSICIAN, NONE Primary Care Unavailable MILAGROS KLEINM, LIDIA Osborn Attending Unavailable PHYSICIAN, NONE Primary Care Unavailable MILAGROS KLEINM, LIDIA Osborn Attending Unavailable PHYSICIAN, NONE Primary Care Unavailable MILAGROS MANRIQUE, LIDIA Osborn Attending Unavailable PHYSICIAN, NONE Primary Care Unavailable MILAGROS MANRIQUE, LIDIA Osborn Attending Unavailable PHYSICIAN, NONE Primary Care Unavailable Dr. MARY PETERSON Attending Unavailable PCP, NONE Primary Care Unavailable Marcanthony, Haylie Attending Unavailable Primay Care Physicia, No Primary Care Unavailable Marcanthony, Haylie Admitting Unavailable Marcanthony, Haylie Referring Unavailable Marcanthony, Haylie Admitting Unavailable Marcanthony, Haylie Attending Unavailable Marcanthony, Haylie Referring Unavailable Primay Care Physicia, No Primary Care Unavailable Marcanthony, Haylie Consulting Unavailable Marcanthony, Haylie Attending Unavailable Marcanthony, Haylie Referring Unavailable Primay Care Physicia, No Primary Care Unavailable Marcanthony, Haylie Attending Unavailable Primay Care Physicia, No Referring Unavailable Primay Care Physicia, No Primary Care Unavailable AMELIA DAVIS Attending Unavailable AMELIA DAVIS Referring Unavailable Primay Care Physicia, No Primary Care Unavailable AMELIA DAVIS Consulting Unavailable AMELIA DAVIS Attending Unavailable Primay Care Physicia, No Primary Care Unavailable AMELIA DAVIS Consulting Unavailable Marcanthony, Haylie Admitting Unavailable Josh, Idalmis Attending Unavailable Marcanthony, Haylie Referring Unavailable Primay Care Physicia, No Primary Care Unavailable Marcanthony, Haylie Consulting Unavailable Milo Medel Attending Unavailable Primay Care Physicia, No Referring Unavailable Marcanthony, Haylie Attending Unavailable Primay Care Physicia, No Primary Care Unavailable Marcanthony, Haylie Referring Unavailable Marcanthony, Haylie Attending Unavailable Primay Care Physicia, No Referring Unavailable Primay Care Physicia, No Primary Care Unavailable Primay Care Physicia, No Attending Unavailable Primay Care Physicia, No Attending Unavailable AMELIA DAVIS Attending Unavailable Primay Care Physicia, No Primary Care Unavailable AMELIA DAVIS Referring Unavailable Marcanthony, Haylie Admitting Unavailable Josh, Idalmis Attending Unavailable Marcanthony, Haylie Referring Unavailable Primay Care Physicia, No Primary Care Unavailable Marcanthony, Haylie Consulting Unavailable Wilmar, Idalmis Attending Unavailable Primay Care Physicia, No Referring Unavailable Gianfranco, Milo Attending Unavailable Marcanthony, Haylie Referring Unavailable Marcanthony, Haylie Attending Unavailable Primay Care Physicia, No Primary Care Unavailable Marcanthony, Haylie Referring Unavailable Marcanthony, Haylie Attending Unavailable Primay Care Physicia, No Referring Unavailable Josh, Idalmis Attending Unavailable Primay Care Physicia, No Referring Unavailable Marcanthony, Haylie Attending Unavailable Primay Care Physicia, No Referring Unavailable Marcanthony, Haylie Attending Unavailable Primay Care Physicia, No Referring Unavailable Gianfranco, Lawrence Attending Unavailable Gianfranco, Lawrence Referring Unavailable Primay Care Physicia, No Primary Care Unavailable Gianfranco, Milo Consulting Unavailable Gianfranco, Milo Attending Unavailable Gianfranco, Milo Referring Unavailable Primay Care Physicia, No Primary Care Unavailable Marcanthony, Haylie Attending Unavailable Primay Care Physicia, No Referring Unavailable Marcanthony, Haylie Attending Unavailable Primay Care Physicia, No Referring Unavailable Primay Care Physicia, No Primary Care Unavailable AMELIA DAVIS Attending Unavailable AMELIA DAVIS Referring Unavailable Primay Care Physicia, No Primary Care Unavailable PROBLEMS PROBLEMS DATE TYPE CONDITION / CODE ATTENDING STATUS SOURCE 05/12/2018 Unknown Z34.83 - Encounter Marcanthony, Active [place] for supervision of [facility] other normal Hospital , third Repository trimester / Z34.83(ICD-10) 04/28/2018 Unknown G89.18 - Other acute Wilmar, Active [place] postprocedural pain [facility] / G89.18(ICD-10) Hospital Repository 04/14/2018 Unknown Z34.90 - Encounter Marcanthony, Active [place] for supervision of [facility] normal , Hospital unspecified, Repository unspecified trimester / Z34.90(ICD-10) 04/13/2018 Unknown O34.219 - Maternal Marcanthony, Active [place] care for unspecified [facility] type scar from Hospital previous Repository delivery / O34.219(ICD-10) 04/13/2018 Unknown Q61.3 - Polycystic Marcanthony, Active [place] kidney, unspecified [facility] / Q61.3(ICD-10) Hospital Repository 04/13/2018 Unknown Z87.59 - Personal Marcanthony, Active [place] history of other [facility] complications of Hospital , Repository childbirth and the puerperium / Z87.59(ICD-10) 04/13/2018 Unknown O99.343 - Other Marcanthony, Active [place] mental disorders [facility] complicating Hospital , third Repository trimester / O99.343(ICD-10) 04/13/2018 Unknown F41.9 - Anxiety Marcanthony, Active [place] disorder, [facility] unspecified / Hospital F41.9(ICD-10) Repository 04/13/2018 Unknown Z3A.36 - 36 weeks Marcanthkarolina, Active [place] gestation of [facility] / Hospital Z3A.36(ICD-10) Repository 03/28/2018 Unknown Z3A.34 - 34 weeks Josh, Active [place] gestation of [facility] / Hospital Z3A.34(ICD-10) Repository 03/14/2018 Unknown Z3A.32 - 32 weeks Marcanthony, Active [place] gestation of [facility] / Hospital Z3A.32(ICD-10) Repository 03/14/2018 Unknown Z3A.29 - 29 weeks [place], Active [place] gestation of [facility] / Hospital Z3A.29(ICD-10) Repository 03/04/[address] Elda PETERSON [facility] Diagnosis abdominal pain / [facility] R10.9(ICD-10) Repository 03/04/[address] Elda PETERSON [facility] (Discharge) related conditions, [facility] third trimester / Repository O26.893(ICD-10) 03/04/2018 Final Diagnosis [address] Elda PETERSON [facility] (Discharge) of / [facility] Z3A.30(ICD-10) Repository 03/04/2018 Final Diagnosis Pelvic and perineal Dr. Elda PETERSON [facility] (Discharge) pain / R10.2(ICD-10) [facility] Repository 03/04/[address] Elda PETERSON [facility] Diagnosis abdominal pain / [facility] R10.9(ICD-10) Repository 02/28/2018 Unknown Z3A.30 - 30 weeks Marcanthony, Active [place] gestation of [facility] / Hospital Z3A.30(ICD-10) Repository 02/16/2018 Unknown Z23 - Encounter for Dominic, Active [place] immunization / [facility] Z23(ICD-10) Hospital Repository 02/16/2018 Unknown Z3A.28 - 28 weeks Dominic, Active [place] gestation of [facility] / Hospital Z3A.28(ICD-10) Repository 01/19/2018 Unknown Z34.82 - Encounter [facility], Active [place] for supervision of [facility] other normal Hospital , second Repository trimester / Z34.82(ICD-10) 01/19/2018 Unknown Z3A.24 - 24 weeks Dominic, Active [place] gestation of [facility] / Hospital Z3A.24(ICD-10) Repository 09/08/2017 Unknown O36.80X0 - AMELIA DAVIS Active [place] with [facility] viability, not Hospital applicable or Repository unspecified / O36.80X0(ICD-10) PROCEDURES PROCEDURES No Procedure Records FoundRESULTS RESULTS DISCHARGE INSTRUCTION Observed: 04/28/2018 Status: F Source: [place] 8:10 AM [facility] REPOSITORY [facility] Medical Records Department [address] [place] [address] Instructions for Home/Discharge Instructions 04/28/18 0809 MR#: [id number] Acct: [id number] Name: TESSA RODRIGUEZ Rep #: [id number] : 1990 27 From: Idalmis Moreno TIPPLE WORKERMalcom PCP: Care Physician, No Primary Status: ADM [...] OPERATIVE REPORT Observed: 04/26/2018 Status: F Source: [place] 10:39 PM [facility] REPOSITORY [facility] Medical Records Department [address] [place] [address] Operative Report 04/26/18 2227 MR#: [id number] Acct: [id number] Name: TESSA RODRIGUEZ Rep #: [id number] : 1990 27 From: Haylie Menendez MD PCP: Care Physician, No Primary Status: ADM IN Y Location: [place] [id number] - Problem List (1) Active labor Status: [...] Comment: PRR JEWELS 05/07/18 boy Jose C LANI Sweet, ([facility]) Roberto (2 kids) Vaginal Delivery Maternal [...] by the rest of the and the was placed on the maternal abdomen. Delayed [...] given after delivery: IV Pitocin Complications: None 04/26/182238 <Electronically signed by Haylie Menendez MD> Date Haylie Menendez MD CC: No Primary Care Physician; Haylie Menendez MD Signed HISTORY AND PHYSICAL Observed: 04/26/2018 Status: F Source: [place] EXAM 10:19 PM [facility] REPOSITORY [facility] Medical Records Department [address] [place] [address] History and Physical 04/26/182204 MR#: [id number] Acct: [id number] Name: TESSA RODRIGUEZ Rep #: [id number] : 1990 27 From: Haylie Menendez MD PCP: Care Physician, No Primary Status: ADM IN Location: [id number] - Problem List (1) Active labor Status: [...] PRR JEWELS 05/07/18 boy Jose C Sweet, ([facility]) Roberto (2 kids) History Date of Admission: 04/26/18 Final JEEWLS: 04/23/18 Gestational age: 40 Weeks and 3 [...] abortions Past Pregnancies Del. DatName GA/WeeksOutcome Route [facility] LocaProviderFOB e ht en ia tn 09/16/11Gunner 39 live birNSVD 6lbs 7ozMale 18 hoursepiduralPomereneMidwife [facility] Hospita l term l Delivery Date: 12/15/14 [...] Symmetrical, Neuro grossly intact. Negative for: Clonus FREIGHT ADJUSTER: Normal external genitalia - positive bright red [...] any complications: none I have reviewed the [facility] and made any clinically relevant updates. 04/26/18 6153 <Electronically signed by Haylie Menendez MD> Date Haylie Menendez MD Cosigner Signature: Date (if applicable) CC: No Primary Care Physician; Haylie Menendez MD Signed CBC-COMPLETE BLOOD CNT Collected: 04/26/2018 Status: F Source: [place] NO DIFF 4:40 PM [facility] REPOSITORY TYPE CODE TESTS RESULT OUT [...] MPV 11.1 Performed By: #### L100.0500 #### [facility] [address] [place], [address] CBC-COMPLETE BLOOD CNT Collected: 04/26/2018 Status: F Source: [place] NO DIFF 7:35 AM [facility] REPOSITORY TYPE CODE TESTS RESULT OUT [...] MPV 11.1 Performed By: #### L100.0500 #### [facility] [address] [place], [address] TYPE AND SCREEN Collected: 04/26/2018 Status: F Source: [place] 7:35 AM [facility] REPOSITORY Order Comment: Reason for Type AND Screen/Red Cells: ROUTINE TYPE CODE TESTS RESULT OUT OF RANGE REFERENCE UNITS LAB B10.0800 A Normal BLOOD TYPE GEL POSITIVE LAB B100.4000 Normal Antibody NEGATIVE Screen Performed By: #### B101.7450 #### [facility] [address] [place], [address] VIROLOGIST OFFICE VISIT Observed: 04/20/2018 Status: F Source: [place] REPORT 12:09 PM [facility] REPOSITORY [facility] [address] [place] [address] OFFICE VISIT Date of Service: 04/20/18 MR#: [id number] Acct: [id number] Name: TESSA RODRIGUEZ Rep #: [id number] : 1990 Provider: AMEYA Moreno Age/Sex: 27/F Location: [facility] Status: Signed Intake Vital Signs04/20/18 Body Mass Index (BMI) 26.7 04/20/18 Height 5 ft 3 in 04/20/18 Weight: 149 lb 4 oz 04/20/18 Body Mass Index (BMI) 26.4 04/20/18 Blood Pressure 102/64 Intake Visit Reasons: 37 WEEK OB Machine Plug Shaper Required: No Is patient in pain?: No [...] safe at home: Yes additional social history: [facility] Pregancy History 6 Elective abortions Hx Para 2 Spontaneous abortions Past Pregnancies Del. DatName GA/WeeksOutcome Route Bt WeigInfant GLabor LgAnesthesDel LocaProviderFOB e ht en th ia tn 09/16/11Gunner 39 live birNSVD 6lbs 7ozMale 18 hoursepiduralPomereneMidwife Rufina th - ful Hospita l term l Delivery [...] Date: 04/20/18 No VB, LOF. Doing well. [facility] MFM. MARYJO Coelho on 04/20/18 Visit Date: 04/13/18 no vb lof good fm no regular ctx, mfm co card- weekly scans with MFM having BPPs weekly Haylie Menendez MD on 04/13/18 Visit Date: 03/28/18 Celexa has been helpful. No VB, LOF. Good FM MARYJO Coelho on 03/28/18 Visit Date: 03/14/18 recommend starting celexa Haylie Menendez MD on 03/14/18 no vb lof good fm no regular ctx. co increased anxiety- Haylie Menendez MD on 03/14/18 Visit Date: 02/28/18 mfm us visit today- getting weekly visit with them. no vb lof good fm no regular ctx Haylie Menendez MD on 02/28/18 Visit Date: 02/16/18 saw cardio this morning, following with MFM doing well needs to get appt with nephro. no vb lof good fm Haylie Menendez MD on 02/16/18 Visit Date: 01/19/18 no vb cramping- co some back pain Haylie Menendez MD on 01/19/18 Visit Date: 12/22/17 no vb lof cramping has genetic visit with mfm wednesday, normal anatomy scan Haylie Menendez MD on 12/22/17 Visit Date: 11/24/17 no vb crmaping having anxiety but managing. reviewed history and recommend [facility] anatomy ultrasound. discussed TOLAC and will plan on this. Haylie Menendez MD on 11/25/17 transfer of care from [place] Haylie Menendez MD on 11/24/17 Diagnostics Diagnostics Labs Hct [...] Z34.83 PRR JEWELS 05/07/18 boy Jose C Sweet ([facility]) Roberto (2 kids) 2. History of Z87.59 [...] Status: F Source: [place] REPORT 9:21 AM [facility] REPOSITORY [facility] [address] [place] [address] OFFICE VISIT Date of Service: 04/20/18 MR#: [id number] Acct: [id number] Name: TESSA RODRIGUEZ Rep #: [id number] : 1990 Provider: Milo Medel MD Age/Sex: 27/F [place] [facility] [place]: Signed HPI HPI Chief Complaint: Follow-up visit Details: TESSA RODRIGUEZ, [...] DAILY #30 tab 03/14/18 [Rx Confirmed 04/13/18] [facility] Medical History Anxiety (Acute) Polycystic kidney [...] safe at home: Yes additional social history: [facility] Const Const: Negative for fatigue, weakness, [...] Z34.83 PRR JEWELS 05/07/18 boy Jose C Sweet ([facility]) Roberto (2 kids) Plan She appears to [...] <Electronically signed by Milo Medel MD> Date Mlio Medel MD Cosigner Signature: Date (if applicable) CC: Haylie Menendez MD VIROLOGIST OFFICE VISIT Observed: 04/13/2018 Status: F Source: [place] REPORT 11:07 AM [facility] [address] [place] [address] OFFICE VISIT Date of Service: 04/13/18 MR#: [id number] Acct: [id number] Name: TESSA RODRIGUEZ Rep #: [id number] : 1990 Provider: Haylie Menendez MD Age/Sex: 27/F Location: [facility] Status: Signed Intake Vital Signs04/13/18 Height 5 ft 3 in 04/13/18 Weight: 149 lb 04/13/18 Body Mass Index (BMI) 26.4 04/13/18 Blood Pressure 120/76 Intake Visit Reasons: 36 weeks Chief Complaint: est ob Machine Plug Shaper Required: No Is patient in pain?: No Allergies No Known Allergies Allergy (Verified 04/13/18 10:41) Medications Vits [Prenatabs FA] 1 tab PO DAILY 04/13/17 [History Confirmed 04/13/18] citalopram 20 mg tablet 20 mg PO DAILY #30 tab 03/14/18 [Rx Confirmed 04/13/18] Last Menstral Period: 07/31/17 Zika: Zika virus screening: Positive ([place]) : No PFSH PFSH Medical History Anxiety [...] safe at home: Yes additional social history: [facility] Pregancy History 6 Elective abortions Hx Para 2 Spontaneous abortions Past Pregnancies Del. DatName GA/WeeksOutcome Route [facility] Morris Castañeda [facility] LocaProviderFOB e ht en ia tn 09/16/11Gunner 39 live birNSVD 6lbs 7ozMale 18 hoursepiduralPomereneMidWhitesburg [facility] Delivery Date: 12/15/14 On 12/22/17 @ 11:30 AzaelGretchen breech, enlarged Delivery Date: 09/16/11 On 12/22/17 @ 11:29 AzaelGretchen No issues during or delivery. Delivery Date: [...] s EGA Ef Gluco faced se 119/77 [id number] transfe 8 e r of ca 16 [...] scans with MFM having BPPs weekly Haylie Menendez MD on 04/13/18 Visit Date: 03/28/18 Celexa has been helpful. No VB, LOF. Good FM Idalmis Moreno NP-Rosita on 03/28/18 Visit Date: 03/14/18 recommend starting celexa Haylie Menendez MD on 03/14/18 no vb lof good fm no regular ctx. co increased anxiety- Haylie Menendez MD on 03/14/18 Visit Date: 02/28/18 mfm us visit today- getting weekly visit with them. no vb lof good fm no regular ctx Haylie Menendez MD on 02/28/18 Visit Date: 02/16/18 saw cardio this morning, following with MFM doing well needs to get appt with nephro. no vb lof good fm Haylie Menendez MD on 02/16/18 Visit Date: 01/19/18 no vb cramping- co some back pain Haylie Menendez MD on 01/19/18 Visit Date: 12/22/17 no vb lof cramping has genetic visit with mfm wednesday, normal anatomy scan Haylie Menendez MD on 12/22/17 Visit Date: 11/24/17 no vb crmaping having anxiety but managing. reviewed history and recommend MFM anatomy ultrasound. discussed TOLAC and will plan on this. Haylie Menendez MD on 11/25/17 transfer of care from [place] Haylie Menendez MD on 11/24/17 Diagnostics Diagnostics Labs Hct [...] PRR JEWELS 05/07/18 boy Jose C Sweet, ([facility]) Roberto (2 kids) 6. History of Z87.59 [...] Z87.59 04/13/18 1107 <Electronically signed by Haylie Menendez MD> Date Haylie Menendez MD Cosigner Signature: Date (if applicable) CC: Observed: 04/13/2018 Status: F Source: [place] CULTURE, GROUP B 12:00 AM [facility] STREPTOCOCCUS REPOSITORY Comments: VAGINAL RECTAL TIMOTHY Culture Group B Beta Streptococcus is not isolated. Performed By: #### M100.1800 #### [facility] [address] [place], [address] VIROLOGIST OFFICE VISIT Observed: 03/28/2018 Status: F Source: [place] REPORT 11:00 AM [facility] REPOSITORY [facility] [address] [place] [address] OFFICE VISIT Date of Service: 03/28/18 MR#: [id number] Acct: [id number] Name: TESSA RODRIGUEZ Rep #: [id number] : 1990 Provider: AMEYA Moreno Age/Sex: 27/F Location: [facility] Status: Signed Intake Vital Signs03/28/18 Height 5 ft 3 in 03/28/18 Weight: 150 lb 03/28/18 Body Mass Index (BMI) 26.5 03/28/18 Blood Pressure 112/80 Intake Visit Reasons: 34 weeks Chief Complaint: est ob Machine Plug Shaper Required: No Is patient in pain?: No [...] safe at home: Yes additional social history: [facility] Pregancy History 6 Elective abortions Hx Para 2 Spontaneous abortions Past Pregnancies Del. DatName GA/WeeksOutcome Route Bt WeigInfant GLabor LgAnesthesDel LocaProviderFOB e ht en pa tn 09/16/11Gunner 39 live birNSVD 6lbs 7ozMale 18 hoursepiduralPomereneMidwife [facility] l term l Delivery Date: 12/15/14 [...] Visit Date: 03/14/18 recommend starting celexa Haylie Menendez MD on 03/14/18 no vb lof good fm no regular ctx. co increased anxiety- Haylie Menendez MD on 03/14/18 Visit Date: 02/28/18 [facility] us visit today- getting weekly visit with them. no vb lof good fm no regular ctx Haylie Menendez MD on 02/28/18 Visit Date: 02/16/18 saw cardio this morning, following with MFM doing well needs to get appt with nephro. no vb lof good fm Haylie Menendez MD on 02/16/18 Visit Date: 01/19/18 no vb cramping- co some back pain Haylie Menendez MD on 01/19/18 Visit Date: 12/22/17 no vb lof cramping has genetic visit with [facility] wednesday, normal anatomy scan Haylie Menendez MD on 12/22/17 Visit Date: 11/24/17 no vb crmaping having anxiety but managing. reviewed history and recommend MFM anatomy ultrasound. discussed TOLAC and will plan on this. Haylie Menendez MD on 11/25/17 transfer of care from [place] Haylie Menendez MD on 11/24/17 Diagnostics Diagnostics Labs Hct [...] PRR JEWELS 05/07/18 boy Jose C Sweet, ([facility]) Roberto (2 kids) 2. History of Z87.59 kidney issues, poor lung development, shortly after . plan MFM anatomy scan, nl NIPT 3. Previous delivery affecting O34.219 previous then cs for breech, plan TOLAC 4. 34 weeks gestation of Z3A.34 anatomy scan scheduleds/p mfm consult- Cardio and [...] SIBLEY Cosigner Signature: Date (if applicable) CC: VIROLOGIST OFFICE VISIT Observed: 03/14/2018 Status: F Source: [place] REPORT 10:23 AM [facility] [address] [place] [address] OFFICE VISIT Date of Service: 03/14/18 MR#: [id number] Acct: [id number] Name: TESSA RODRIGUEZ Rep #: [id number] : 1990 Provider: Haylie Menendez MD Age/Sex: 27/F Location: [facility] Status: Signed Intake Vital Signs03/14/18 Height 5 ft 3 in 03/14/18 Weight: 145 lb 6 oz 03/14/18 Body Mass Index (BMI) 25.7 03/14/18 Blood Pressure 112/80 Intake Visit Reasons: 32 weeks Chief Complaint: est ob Machine Plug Shaper Required: No Is patient in pain?: No [...] safe at home: Yes additional social history: [facility] Pregancy History 6 Elective abortions Hx Para 2 Spontaneous abortions Past Pregnancies Del. DatName GA/WeeksOutcome Route [facility] LgAnestheCHI [facility] LocaProviderFOB e ht en [facility] 09/16/11Gunner 39 live birNSVD 6lbs 7ozMale 18 hoursepiduralPomereneMidnjfe [facility] Hospita l term l [...] s EGA Ef Gluco faced se 119/77 [id number] transfe 8 e r of ca 16 re from w 4d Negati orrvil ve le no v b crmap ing hav ing anx iety bu t manag ing. r eviewed histor y and r ecommen d MFM a natomy ultraso und. d iscusse d TOLAC and wi ll plan on thi s. Visit Notes Visit Date: 03/14/18 recommend starting celexa Haylie Menendez MD on 03/14/18 no vb lof good fm no regular ctx. co increased anxiety- Haylie Menendez MD on 03/14/18 Visit Date: 02/28/18 [facility] us visit today- getting weekly visit with them. no vb lof good fm no regular ctx Haylie Menendez MD on 02/28/18 Visit Date: 02/16/18 saw cardio this morning, following with MFM doing well needs to get appt with nephro. no vb lof good fm Haylie Menendez MD on 02/16/18 Visit Date: 01/19/18 no vb cramping- co some back pain Haylie Menendez MD on 01/19/18 Visit Date: 12/22/17 no vb lof cramping has genetic visit with [facility] wednesday, normal anatomy scan Haylie Menendez MD on 12/22/17 Visit Date: 11/24/17 no vb crmaping having anxiety but managing. reviewed history and recommend [facility] anatomy ultrasound. discussed TOLAC and will plan on this. Haylie Menendez MD on 11/25/17 transfer of care from [place] Haylie Menendez MD on 11/24/17 Diagnostics Diagnostics Labs Hct [...] weeks gestation of Z3A.32 anatomy scan scheduleds/p mfm consult- Cardio and Nephro appt needed- co managment of care with MFM. 3. PCK (polycystic kidney disease) Q61.3 mf cocare 4. Encounter for supervision of other normal in third trimester Z34.83 PRR JEWELS 05/07/18 boy Jose C LANI Montenegroluz, ([facility]) Roberto (2 kids) 5. History of Z87.59 kidney issues, poor lung development, shortly after . plan MF anatomy scan, nl NIPT 6. 29 weeks [...] F41.9 03/14/18 1023 <Electronically signed by Haylie Menendez MD> Date Haylie Menendez MD Cosigner Signature: Date (if applicable) CC: VIROLOGIST OFFICE VISIT Observed: 02/28/2018 Status: F Source: [place] REPORT 10:44 AM [facility] REPOSITORY [facility] [address] [place] [address] OFFICE VISIT Date of Service: 02/28/18 MR#: [id number] Acct: [id number] Name: TESSA RODRIGUEZ Rep #: [id number] : 1990 Provider: Haylie Menendez MD Age/Sex: 27/F Location: [facility] Status: Signed Intake Vital Signs02/28/18 Height 5 ft 4 in 02/28/18 Weight: 144 lb 02/28/18 Body Mass Index (BMI) 24.7 02/28/18 Blood Pressure 102/64 Intake Visit Reasons: 30 weeks Machine Plug Shaper Required: No Is patient in pain?: No [...] safe at home: Yes additional social history: [facility] Pregancy History 6 Elective abortions Hx Para 2 Spontaneous abortions Past Pregnancies Del. DatName GA/WeeksOutcome Route [facility] LocaProviderFOB e ht en ia tn 09/16/11Gunner 39 live birNSVD 6lbs 7ozMale 18 hoursepiduralPomereneMidwife [facility] Hospita l term l Delivery [...] s EGA Ef Gluco faced se 119/77 [id number] transfe 8 e r of ca 16 re from w 4d Negati orrvil ve le no v b crmap ing hav ing anx iety bu t manag ing. r eviewed histor y and r ecommen d [facility] a natomy ultraso und. d iscusse d TOLAC and wi ll plan on thi s. Visit Notes Visit Date: 02/28/18 [facility] us visit today- getting weekly visit with them. no vb lof good fm no regular ctx Haylie Menendez MD on 02/28/18 Visit Date: 02/16/18 saw cardio this morning, following with MFM doing well needs to get appt with nephro. no vb lof good fm Haylie Menendez MD on 02/16/18 Visit Date: 01/19/18 no vb cramping- co some back pain Haylie Menendez MD on 01/19/18 Visit Date: 12/22/17 no vb lof cramping has genetic visit with [facility] wednesday, normal anatomy scan Haylie Menendez MD on 12/22/17 Visit Date: 11/24/17 no vb crmaping having anxiety but managing. reviewed history and recommend MFM anatomy ultrasound. discussed TOLAC and will plan on this. Haylie Menendez MD on 11/25/17 transfer of care from [place] Haylie Menendez MD on 11/24/17 Diagnostics Diagnostics Labs Hct [...] weeks gestation of Z3A.30 anatomy scan scheduleds/p mfm consult- Cardio and Nephro appt needed- co managment of care with MFM. 3. PCK (polycystic kidney disease) Q61.3 mfm cocare 4. Encounter for supervision of other normal in third trimester Z34.83 PRR JEWELS 05/07/18 boy Jose C Sweet ([facility]) Roberto (2 kids) 5. History of Z87.59 [...] Z87.59 02/28/18 1044 <Electronically signed by Haylie Menendez MD> Date Haylie Menendez MD Cosigner Signature: Date (if applicable) CC: ECHOCARDIOGRAM COMPLETE Observed: 02/23/2018 Status: F Source: SOLAN[place] 10:52 AM [facility] REPOSITORY [facility] Cardiovascular Services [address] [place] [address] Echo Complete 02/23/18 0900 MR#: [id number] Acct: [id number] Name: TESSA RODRIGUEZ Rep #: [id number] : 1990 27 From: Milo Medel MD Attending Dr: Milo Medel MD Status: REG CLI Ordering Dr: Milo Medel MD Date: 02/23/18 Location: [facility] Sex: F C Admitted: Reason For Study: [...] Ordering Physician: Milo Medel Referring Physician: Haylie Menendez Performed By: Khushbu Santos, MARGOT, RVT 02/23/181050 Date Milo Medel MD CC: No Primary Care Physician; Milo Medel MD Date Dictated: 02/23/18899 Date Transcribed: 02/23/181050 Electron Beam Welding Machine Operator: Signed CBC W/DIFF, AUTOMATED Collected: 02/16/2018 Status: F Source: DER[place]LL 11:54 AM [facility] REPOSITORY TYPE CODE TESTS RESULT OUT [...] Lymph 1.21 Performed By: #### L100.0100 #### [facility] [address] [place], [address] GLUCOSE CHALLENGE GEST Collected: 02/16/2018 Status: F Source: [place] 1H 50G 11:54 AM [facility] REPOSITORY TYPE CODE TESTS RESULT OUT OF RANGE REFERENCE UNITS LAB L501.0250 70-140 mg/dL Normal GLU GEST 108 50g 1H Performed By: #### L501.0250 #### [facility] [address] [place], [address] VIROLOGIST OFFICE VISIT Observed: 02/16/2018 Status: F Source: [place] REPORT 11:17 AM [facility] REPOSITORY [facility] [address] [place] [address] OFFICE VISIT Date of Service: 02/16/18 MR#: [id number] Acct: [id number] Name: TESSA RODRIGUEZ Rep #: [id number] : 1990 Provider: Haylie Menendez MD Age/Sex: 27/F Location: [facility] Status: Signed Intake Vital Signs02/16/18 Height 5 ft 3.75 in 02/16/18 Weight: 143 lb 02/16/18 Body Mass Index (BMI) 24.7 02/16/18 Blood Pressure 108/78 Intake Visit Reasons: 28 weeks Chief Complaint: est ob Machine Plug Shaper Required: No Is patient in pain?: No [...] safe at home: Yes additional social history: [facility] Pregancy History 6 Elective abortions Hx Para 2 Spontaneous abortions Past Pregnancies Del. DatName GA/WeeksOutcome Route [facility] LgAnestheMEel LocaProviderFOB e ht en [facility] tn 09/16/11Gunner 39 live birNSVD 6lbs 7ozMale 18 hoursepiduralPomereneMidwife [facility] Hospita l term l Delivery Date: 12/15/14 [...] nephro. no vb lof good fm Haylie Menendez MD on 02/16/18 Visit Date: 01/19/18 no vb cramping- co some back pain Haylie Menendez MD on 01/19/18 Visit Date: 12/22/17 no vb lof cramping has genetic visit with mfm wednesday, normal anatomy scan Haylie Menendez MD on 12/22/17 Visit Date: 11/24/17 no vb crmaping having anxiety but managing. reviewed history and recommend MFM anatomy ultrasound. discussed TOLAC and will plan on this. Haylie Menendez MD on 11/25/17 transfer of care from [place] Haylie Menendez MD on 11/24/17 Diagnostics Diagnostics Labs Blood [...] PRR JEWELS 05/07/18 boy Jose C Sweet, ([facility]) Roberto (2 kids) 4. History of Z87.59 [...] Q61.3 02/16/18 1117 <Electronically signed by Haylie Menendez MD> Date Haylie Menendez MD Cosigner Signature: Date (if applicable) CC: CARDIOLOGY VISIT Observed: 02/16/2018 Status: F Source: [place]AN[place] REPORT 10:02 AM [facility] REPOSITORY [facility] [address] [place] [address] OFFICE VISIT Date of Service: 02/16/18 MR#: [id number] Acct: [id number] Name: TESSA RODRIGUEZ Rep #: [id number] : 1990 Provider: Milo Medel MD Age/Sex: 27/F [place] [facility] Status: Signed HPI HPI Chief Complaint: Initial evaluation. Details: TESSA RODIRGUEZ, is a 27 F who presents to [...] tab PO DAILY 04/13/17 [History Confirmed 02/16/18] PFSH Medical History Anxiety (Acute) Polycystic kidney [...] safe at home: Yes additional social history: [facility] Const Const: Negative for fatigue, weakness, [...] Other Orders Orders: Follow Up 2 Months (process chemist) Coding Level of Care Code Off vis,new,level 3 Diagnoses PCK (polycystic kidney disease) Q61.3 Coding Level of Care Code Off vis,new,level 3 Diagnoses PCK (polycystic kidney disease) Q61.3 02/16/18 1002 <Electronically signed by Milo Medel MD> Date Milo Medel MD Cosigner Signature: Date (if applicable) CC: Haylie Menendez MD 12 LEAD EKG PERFORMED Observed: 02/16/2018 Status: F Source: [place]ER[place] BY [facility] 9:37 AM [facility] REPOSITORY [facility] [address] [place] [address] 12 Lead EKG performed by [facility] 02/16/18 0922 MR#: [id number] Acct: [id number] Name: TESSA RODRIGUEZ Rep #: [id number] : 1990 27 From: Milo Medel MD Attending Dr: Milo Medel MD Status: DEP AMB Ordering Dr: Milo Medel MD Date: 02/16/18 [place] [facility] Sex: F C Admitted: [facility]/12 Lead EKG performed by [facility] ECG Report Interpretation Sinus Rhythm WITHIN NORMAL LIMITSElectronically signed on 04/20/2018 at 16:32 by Milo Medel Software Version 8610 04/20/18 1636 Date Milo Medel MD CC: No Primary Care Physician Date Dictated: 02/16/18921 Date Transcribed: 02/16/18921 Electron Beam Welding Machine Operator: CO Signed PROGRESS NOTE Observed: 01/31/2018 Status: COMPLETED Source: TYE 11:00 AM [facility] REPOSITORY Prior with oligo, ADPKD, and pulmonary hypoplasia and . She is highly anxious and would like increased surveillance. Will recheck SÁNCHEZ and kidneys in 2 weeks, biometry every 4 and weekly BPP starting at [address]/NG W[facility] BY PCR Collected: 01/19/2018 Status: F Source: DERRELL 3:26 PM [facility] REPOSITORY Order Comment: Comments: urine Comments: urine TYPE CODE TESTS RESULT OUT OF RANGE REFERENCE UNITS LAB L8200.2100 Negative Normal Chlam Negative Trac PCR LAB L8200.2200 Negative Normal NG by Negative PCR Performed By: #### L8200.2000 #### [facility] [address] [place], [address] VIROLOGIST OFFICE VISIT Observed: 01/19/2018 Status: F Source: DERRELL REPORT 11:09 AM [facility] REPOSITORY [facility] Emergency Department [address] [place] [address] OFFICE VISIT Date of Service: 01/19/18 MR#: [id number] Acct: [id number] Name: TESSA RODRIGUEZ Rep #: [id number] : 1990 Provider: Haylie Menendez MD Age/Sex: 27/F Location: [facility] Status: Signed Intake Vital Signs01/19/18 Height 5 ft 3 in 01/19/18 Weight: 139 lb 4 oz 01/19/18 Body Mass Index (BMI) 24.6 01/19/18 Blood Pressure 102/60 Intake Visit Reasons: 24 weeks Chief Complaint: est ob Machine Plug Shaper Required: No Is patient in pain?: No [...] safe at home: Yes additional social history: [facility] Pregancy History 6 Elective abortions Hx Para 2 Spontaneous abortions Past Pregnancies Del. DatName GA/WeeksOutcome Route [facility] LgAnestheCHI [facility] LocaProviderFOB e ht en ia tn 09/16/11Gunner 39 live birNSVD 6lbs 7ozMale 18 hoursepiduralPomereneMidwife [facility] Delivery Date: 12/15/14 [...] vb cramping- co some back pain Haylie Menendez MD on 01/19/18 Visit Date: 12/22/17 no vb lof cramping has genetic visit with mfm wednesday, normal anatomy scan Haylie Menendez MD on 12/22/17 Visit Date: 11/24/17 no vb crmaping having anxiety but managing. reviewed history and recommend MFM anatomy ultrasound. discussed TOLAC and will plan on this. Haylie Menendez MD on 11/25/17 transfer of care from [place] Haylie Menendez MD on 11/24/17 Diagnostics Diagnostics Labs Blood [...] Z34.82 PRR JEWELS 05/07/18 boy Jose C Sweet, ([facility]) Rufina (2 kids) 4. 24 weeks gestation [...] 24 weeks 01/19/18 1109 <Electronically signed by Haylie Menendez MD> Date Haylie Menendez MD Cosigner Signature: Date (if applicable) CC: PROGRESS NOTE Observed: 01/11/2018 Status: COMPLETED Source: [place] 9:30 AM [facility] REPOSITORY Tessa Rodriguez is a new patient who's primary care provider is Primary Care, MD Yulissa here for evaluation of heart. Chief Complaint Patient presents with ECHO Abnormal appearing 4 chamber view-dilated appearing coronary sinus History of Presenting Problem HPI Thank you for consulting us regarding Tessa Rodriguez. She is referred to the cardiology clinic at [facility] for evaluation of the heart. 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 Tricuspid valve: There was normal tricuspid [...] to see in cardiology clinic here at [facility], 1-2 moths after the or earlier if cardiac condition/status changes in any way. Counseling and/or coordination of care was greater than 35 minutes which is more than 50% of the total time of 60 minutes spent on the encounter. PROGRESS NOTE Observed: 01/03/2018 Status: COMPLETED Source: [place] 12:45 PM [facility] REPOSITORY The total patient time of the visit was 45 minutes, of which greater than 50% of the time was spent counseling and coordinating care. PROGRESS NOTE Observed: 12/27/2017 Status: COMPLETED Source: [place] 2:00 PM [facility] Reason for Consult/Chief Concern: Tessa is being [...] recommended when she was last seen in 2015 but not completed. Tessa has an appointment [...] normal renal ultrasound, and Mark, who in [facility]'s NICU the day after from complications related [...] a noncontributory family history. Tessa's ethnicity is [place]/Indonesian and Yaw's ethnicity is Italian. There is no known consanguinity, and Yaw [...] elected to proceed. Recommendations and Plan: 1. [facility] Polycystic Kidney Disease and Related Disorders panel - will request insurance prior authorization first 2. Follow-up with [facility] as already scheduled 3. Nephrology referral also [...] of 40 minutes spent on the encounter. VIROLOGIST OFFICE VISIT Observed: 12/22/2017 Status: F Source: DERRELL REPORT 11:39 AM [facility] [place] [address] [place] [address] OFFICE VISIT Date of Service: 12/22/17 MR#: [id number] Acct: [id number] Name: TESSA RODRIGUEZ Rep #: [id number] : 1990 Provider: Haylie Menendez MD Age/Sex: 27/F Location: [facility] Status: Signed Intake Vital Signs12/22/17 Height 5 ft 4 in 12/22/17 Weight: 135 lb 2 oz 12/22/17 Body Mass Index (BMI) 23.1 12/22/17 Blood Pressure 104/69 Intake Visit Reasons: 20 weeks Machine Plug Shaper Required: No Is patient in pain?: No [...] safe at home: Yes additional social history: [facility] Pregancy History 6 Elective abortions Hx Para 2 Spontaneous abortions Past Pregnancies Del. DatName GA/WeeksOutcome Route [facility] WeigIneduart GLateja LgAnestheCHI [facility] LocaProviderFOB e ht en ia tn 09/16/11Gunner 39 live birNSVD 6lbs 7ozMale 18 hoursepiduralPomereneMidwife [facility] Hospita l term l Delivery Date: 12/15/14 [...] s EGA Ef Gluco faced se 119/77 [id number] transfe 8 e r of ca 16 [...] with m wednesday, normal anatomy scan Haylie Menendez MD on 12/22/17 Visit Date: 11/24/17 no vb crmaping having anxiety but managing. reviewed history and recommend [facility] anatomy ultrasound. discussed TOLAC and will plan on this. Haylie Menendez MD on 11/25/17 transfer of care [place] Haylie Menendez MD on 11/24/17 Diagnostics Diagnostics Labs Blood [...] second trimester Z34.82 JEWELS 05/07/18 boy LANI Sweet, ([facility]) Rufina (2 kids) NEEDS GC/C AT NEXT [...] O34.219 12/22/17 1139 <Electronically signed by Haylie Menendez MD> Date Haylie Menendez MD Cosigner Signature: Date (if applicable) CC: PROGRESS NOTE Observed: 12/06/2017 Status: COMPLETED Source: [place] 12:40 PM [facility] Referral from Dr. Donaldson to [facility] due to family history of polycystic kidney disease. Spoke with pt who desires appointment 01/03 for follow up anatomy and echocardiogram. Will mail appointment information and directions. VIROLOGIST OFFICE VISIT Observed: 11/25/2017 Status: F Source: DERRELL REPORT 12:46 AM [facility] REPOSITORY [facility] [address] [place] [address] OFFICE VISIT Date of Service: 11/24/17 MR#: [id number] Acct: [id number] Name: TESSA RODRIGUEZ Rep #: [id number] : 1990 Provider: Haylie Menendez MD Age/Sex: 27/F Location: [facility] Status: Signed Intake Vital Signs11/24/17 Height 5 ft 4 in 11/24/17 Blood Pressure 119/77 Intake Visit Reasons: [address] [facility] Chief Complaint: Transfer OB Machine Plug Shaper Required: No Is patient in pain?: No [...] safe at home: Yes additional social history: [facility] Pregancy History 6 Elective abortions Hx Para 2 Spontaneous abortions Past Pregnancies Del. DateName GA/Weeks Outcome Route Bth WeighInfant GeLabor LgtAnesthesiDel LocatProvider FOB t n h a n Delivery Date: No notes to display Delivery Date: On 11/24/17 @ 11:35 Haylie Menendez breech, enlarged Delivery Date: No notes to display HPI [address] [facility]: Details: TESSA RODRIGUEZ is a 27 [...] TOLAC and will plan on this. Haylie Menendez MD on 11/25/17 transfer of care from [place] Haylie Menendez MD on 11/24/17 Diagnostics Diagnostics Labs Blood [...] O34.219 11/25/17 0046 <Electronically signed by Haylie Menendez MD> Date Haylie Menendez MD Cosigner Signature: Date (if applicable) CC: HG Collected: 10/20/2017 Status: F Source: [facility] 12:01 PM [facility] REPOSITORY TYPE CODE TESTS RESULT OUT OF [...] 7.4-10.4 fL MPV 9.2 Performed By: #### HGMP, ABOG, ANSG, TSH, HIVRP #### [address] [address] #### RUBIS, RPR, HBSAG, VARIS #### [place] [id number] GEL ABO Collected: 10/20/2017 Status: F Source: [facility] 12:01 [facility] REPOSITORY TYPE CODE TESTS RESULT OUT OF RANGE REFERENCE UNITS LAB ABORH([facility] ) Unknown ABO/Rh A POS Interp Performed By: #### HGMP, ABOG, ANSG, TSH, HIVRP #### [address] [address] #### RUBIS, RPR, HBSAG, VARIS #### [address] [address] GEL ABS Collected: 10/20/2017 Status: F Source: [facility] 12:01 [facility] REPOSITORY TYPE CODE TESTS RESULT OUT OF REFERENCE UNITS RANGE LAB ANSG([facility] ) Antibody Negative ABSC Screen Gel Performed By: #### HGMP, ABOG, ANSG, TSH, HIVRP #### [address] [address] #### RUBIS, RPR, HBSAG, VARIS #### [address] [address] RUBIS Collected: 10/20/2017 Status: F Source: [facility] 12:[address] [place] [address] REPOSITORY TYPE CODE TESTS RESULT OUT OF [...] NEG: No antibody detected. Performed By: #### HGMP, ABOG, ANSG, TSH, HIVRP #### [place] [address] #### RUBIS, RPR, HBSAG, VARIS #### [place] [address] RPR Collected: 10/20/2017 Status: F Source: [facility] 12:[address] [place] [address] REPOSITORY TYPE CODE TESTS RESULT OUT OF [...] with abnormal serum globulins. Performed By: #### HGMP, ABOG, ANSG, TSH, HIVRP #### [place] [address] #### RUBIS, RPR, HBSAG, VARIS #### [place] [address] HBSAG Collected: 10/20/2017 Status: F Source: [facility] 12:01 [facility] REPOSITORY TYPE CODE TESTS RESULT OUT OF REFERENCE UNITS RANGE LAB HBSAG(LOINC Negative ) Hep B Negative Surf Ag Performed By: #### HGMP, ABOG, ANSG, TSH, HIVRP #### [place] [address] #### RUBIS, RPR, HBSAG, VARIS #### [address] [address] TSH Collected: 10/20/2017 Status: F Source: [facility] 12:01 [facility] REPOSITORY TYPE CODE TESTS RESULT OUT OF RANGE REFERENCE UNITS LAB TSH(LOINC) 0.27-4.20 mcIU/mL TSH 0.59 Performed By: #### HGMP, ABOG, ANSG, TSH, HIVRP #### [address] [address] #### RUBIS, RPR, HBSAG, VARIS #### [place] [address] HIVRP Collected: 10/20/2017 Status: F Source: [facility] 12:[address] [place] [address] REPOSITORY TYPE CODE TESTS RESULT OUT OF RANGE REFERENCE UNITS LAB HIVRO(LOIN Non-Reactive C) Rapid HIV 1/2 Antibody Non-Reactive LAB HIVROI(RIGO NC) Unknown RHIV 1/2 Ab Int Non-Reactive LAB HIVAG(LOIN Non-Reactive C) HIV p24 Antigen Non-Reactive LAB P24AGI(RIGO NC) Unknown HIV P24 Int Non-reactive LAB CD:[id number] 61(LOINC) QC RHIV Valid Performed By: #### HGMP, ABOG, ANSG, TSH, HIVRP #### [place] [address] #### RUBIS, RPR, HBSAG, VARIS #### [place] [address] VARIS Collected: 10/20/2017 Status: F Source: [facility] 12:01 [facility] REPOSITORY TYPE CODE TESTS RESULT OUT [...] further testing is required. Performed By: #### HGMP, ABOG, ANSG, TSH, HIVRP #### [place] [address] [place], [place] [address] #### RUBIS, RPR, HBSAG, VARIS #### [address] [address] TRANSVAGINAL W/PREG US Observed: 09/15/2017 Status: F Source: [place] 9:37 AM [facility] REPOSITORY [facility] Imaging Services [address] [place] [address] Transvaginal w/Preg US MR#: [id number] Acct: [id number] Name: TESSA RODRIGUEZ Rep #: [id number] : 1990 F 27 From: Rocio Peña MD PCP: Care Physician, No Primary Status: REG CLI Study: Transvaginal w/Preg US Date of Exam: 09/15/17 Exam# [id number] Ordering Dr: LIDIA LINARES OB Transvaginal INDICATION: VIABILITY COMPARISON: None TECHNIQUE: [...] CC: No Primary Care Physician; LIDIA LINARES Electron Beam Welding Machine Operator: Signed TRANSVAGINAL W/PREG US Observed: 09/08/2017 Status: F Source: [place] 2:46 PM [facility] REPOSITORY [facility] Imaging Services [place] [address] Transvaginal w/Preg US MR#: [id number] Acct: [id number] Name: TESSA RODRIGUEZ Rep #: [id number] : 1990 F 27 From: Michael Loza MD PCP: Care Physician, No Primary Status: REG CLI Study: Transvaginal w/Preg US Date of Exam: 09/08/17 Exam# [id number] Ordering Dr: LIDIA LINARES STUDY: FIRST TRIMESTER [...] CC: No Primary Care Physician; LIDIA LINARES Electron Beam Welding Machine Operator: Signed PROGESTERONE LEVEL Collected: 09/03/2017 Status: F Source: [place] 10:34 AM [facility] REPOSITORY TYPE CODE TESTS RESULT OUT [...] -422.50 ng/mL Performed By: #### L509.4001 #### [facility] [address] [place], [address] HCG TITER QUANT., Collected: 09/03/2017 Status: F Source: [place] SERUM 10:34 AM [facility] REPOSITORY TYPE CODE TESTS RESULT OUT OF RANGE REFERENCE UNITS LAB L700.8000 <9 non-preg mIU/mL High HCG 2008 QUANT. Performed By: #### L700.8000 #### [facility] [address] [facility] [place], [address] PROGESTERONE LEVEL Collected: 09/01/2017 Status: F Source: [place] 1:03 PM [facility] REPOSITORY TYPE CODE TESTS RESULT OUT [...] -422.50 ng/mL Performed By: #### L509.4001 #### [facility] [address] [place], [place], [address] HCG TITER QUANT., Collected: 09/01/2017 Status: F Source: [place] SERUM 1:03 PM [facility] REPOSITORY TYPE CODE TESTS RESULT OUT OF RANGE REFERENCE UNITS LAB L700.8000 <9 non-preg mIU/mL High HCG 986 QUANT. Performed By: #### L700.8000 #### [facility] [address] [place], [address] HCGQ Collected: 07/14/2017 Status: F Source: [employer] 3:00 PM [facility] REPOSITORY TYPE CODE TESTS RESULT OUT OF [...] mIU/mL Performed By: #### HCGQ #### [place] [address] [place], [place] [address] HCGQ Collected: 07/07/2017 Status: F Source: [employer] 1:12 PM [facility] REPOSITORY TYPE CODE TESTS RESULT OUT OF [...] mIU/mL Performed By: #### HCGQ #### [address] [place], [place] [address] HCGQ Collected: 06/09/2017 Status: F Source: [employer] 10:49 AM [facility] REPOSITORY TYPE CODE TESTS RESULT OUT OF [...] mIU/mL Performed By: #### HCGQ #### [place] [place] [address] [place], [place] [address] ALLERGIES ALLERGIES DATE TYPE / CODE NAME / CODE REACTION SEVERITY SOURCE 04/26/2018 Drug No Known Unknown [place] Allergy/[id number](S Allergies/F0019 [facility] NOMED CT) 60995(RXNORM) Hospital Repository Miscellaneous NO KNOWN [place] Allergy/521242005(S ALLERGIES [facility] Hospital Repository ENCOUNTERS ENCOUNTERS ADMIT/DISCHARGE ACCOUNT NUMBER ADMITTING ENCOUNTER LOCATION SOURCE CLASS 04/26/2018/04/28/20 [id number] Dominic, Inpatient [place] 18 Haylie Encounter [facility] ding:WPRoom: Repository XD358Koz: 1 04/26/2018 [id number] Dominic, Ambulatory BMSBuilding: [place] Haylie BMS.CF.[facility] Repository 04/26/2018 [id number] Dominic, Ambulatory BMSBuilding: [place] Haylie BMS.CF.[facility] Repository 04/26/2018 [id number] Dominic, Ambulatory BMSBuilding: [place] Haylie BMS.CF.[facility] Repository 04/25/2018/04/25/20 [id number] Ambulatory Building:[address] Repository 04/20/2018/04/20/20 [id number] Ambulatory BMSBuilding: [place] 18 BMS.[facility] Repository 04/20/2018/04/20/20 [id number] Ambulatory BMSBuilding: [place] 18 BMS.[facility] Repository 04/18/2018 [id number] Ambulatory Building:[facility] Repository 04/13/2018 [id number] Ambulatory [facility] ding:LABSPEC Repository 04/13/2018/04/13/20 [id number] Ambulatory BMSBuilding: [place] 18 BMS.[facility] Repository 04/11/2018 [id number] Ambulatory Building:[facility] Repository 03/28/2018/03/28/20 [id number] Ambulatory BMSBuilding: [place] 18 BMS.[facility] Repository 03/28/2018/03/28/20 [id number] Ambulatory Building:[address] Repository 03/21/2018/03/21/20 [id number] Ambulatory Building:[address] Repository 03/14/2018/03/14/20 [id number] Ambulatory BMSBuilding: [place] 18 BMS.[facility] Repository 03/14/2018 [id number] Ambulatory Building:[facility] Repository 03/07/2018 [id number] Ambulatory Building:[facility] Repository 03/04/2018/03/05/20 [id number] Ambulatory UNKNOWNBuild [facility] 18 ing:ILD TP System LDRPRoom: Repository IOBTBed: IOBT01 02/28/2018/02/29/20 [id number] Ambulatory BMSBuilding: [place] 18 BMS.[facility] Repository 02/28/2018 [id number] Ambulatory Building:[facility] Repository 02/23/2018 [id number] Ambulatory BMSBuilding: [place] BMS.CF.[facility] Repository 02/23/2018 [id number] Ambulatory [facility] ding:[facility] Repository 02/16/2018 [id number] Ambulatory [facility] ding:LAB Repository 02/16/2018/02/17/20 [id number] Ambulatory BMSBuilding: [place] 18 BMS.[facility] Repository 02/16/2018/02/17/20 [id number] Ambulatory BMSBuilding: [place] 18 BMS.[facility] Repository 02/14/2018 [id number] Ambulatory Building:[facility] Repository 01/31/2018/02/01/20 [id number] Ambulatory Building:[address] Repository 01/19/2018 [id number] Ambulatory [facility] ding:LABSPEC Repository 01/19/2018/01/20/20 [id number] Ambulatory BMSBuilding: [place] 18 BMS.[facility] Repository 01/11/2018/01/12/20 [id number] Ambulatory Building:[address] Repository 01/03/2018 [id number] Ambulatory Building:[facility] Repository 12/27/2017/12/28/19 [id number] Ambulatory Building:[address] Repository 12/22/2017/12/23/19 [id number] Ambulatory BMSBuilding: [place] 18 BMS.[facility] Repository 12/06/2017 [id number] Ambulatory Building:[facility] Repository 11/24/2017/11/25/19 [id number] Ambulatory BMSBuilding: [place] 18 BMS.[facility] Repository 10/27/2017 [id number] Ambulatory [facility] Repository 10/20/2017 [id number] Ambulatory [facility] Repository 10/20/2017/10/21/19 [id number] Ambulatory MARITO Marito [address] [place] [address] ding:[facility] Repository 09/15/2017 [id number] Ambulatory [facility] ding:US Repository 09/08/2017 [id number] Ambulatory [facility] ding:US Repository 09/07/2017 [id number] Ambulatory BBuilding:[facility] Repository 09/03/2017 [id number] Ambulatory [facility] ding:LAB Repository 09/01/2017 [id number] Ambulatory [facility] ding:LAB.FUT Repository URE 07/14/2017/07/14/19 [id number] Ambulatory MARITO Marito [address] [place] [address] ding:[facility] Repository 07/07/2017/07/07/19 [id number] Ambulatory MARITO Marito [address] [place] [address] ding:[facility] Repository 06/09/2017/06/09/19 [id number] Ambulatory MARITO Marito [address] [place] [address] ding:AB [facility] Repository PAYERS PAYERS ENCOUNTER GUARANTOR PAYER SUBSCRIBER SOURCE 04/26/2018 TESSA Telles Primary Insurance:[facility] TESSA Telles [place] [id number] [facility] Number: [id number], [place] [id number] Repository [address]Tkh: 330) Date:5718-61-22UB [phone] [address]XA: 04/26/2018 Secondary NOT GIVENUNK [place] Insurance:SELF PAY [facility] Number: Effective Repository Date:2018-04-26 04/26/2018 TESSA Telles Primary Insurance:[facility] TESSA Telles [place] [id number] COUNTS [facility]CLUDE [facility] PLANHospital for Special SurgeryMANDOB: [facility] Number: [id number], [place] [id number] Repository [address]Kob: (330) Date:1729-75-39JS [phone] () [address] [place], [place] [address]WP: 04/26/2018 Secondary NOT GIVENUNK [place] Insurance:SELF PAY [facility] Number: Effective Repository Date:2018-04-26 04/26/2018 TESSA Telles Primary Insurance:[facility] TESSA Telles [place] [id number] [facility] Center[facility]: [facility] Number: [id number], [place] [id number] Repository [address]Drh: (330) Date:3521-29-02YA [phone] () [address] [place] [address]IA: 04/26/2018 Secondary NOT GIVENUNK [place] Insurance:SELF PAY [facility] Number: Effective Repository Date:2018-04-26 04/26/2018 TESSA Telles Primary Insurance:[facility] TESSA Telles [place] [id number] [facility] Number: [id number], [place] [id number] Repository [address]Sbt: (330) Date:1898-52-07WX [phone] () [address] [place] [address]VI: 04/26/2018 Secondary NOT GIVENUNK [place] Insurance:SELF PAY [facility] Number: Effective Repository Date:2018-04-26 04/25/2018 TESSA [place] Insurance[place] TESSA [facility] HELMANDOB: [facility] HELMANDOB: Hospital [facility] [id number] Repository [facility] Number: [address] [place], [place] [id number] [facility] [address]Qab: (330) Date: , [place] [address] [phone] () 04/20/2018 TESSA M Primary Insurance:[facility] TESSA Telles [place] [id number] [facility] CenterMANDOB: [facility] Number: [id number], [place] [id number] Repository [address]Aut: (330) Date:9449-03-59YA [phone] () [address] [place] [address]IW: 04/20/2018 Secondary NOT GIVENUNK [place] Insurance:SELF PAY [facility] Number: Effective Repository Date:2018-04-20 04/20/2018 TESSA Telles Primary Insurance:[facility] TESSA Telles [place] [id number] [facility] CenterMANDOB: [facility] Number: [id number], [place] [id number] Repository [address]Nza: (330) Date:9242-58-76WY [phone] () [address] [place] [address]OS: 04/20/2018 Secondary NOT GIVENUNK [place] Insurance:SELF PAY [facility] Number: Effective Repository Date:2018-02-16 04/18/2018 TESSA Primary Insurance[place] TESSA [facility] HELMANDOB: [facility] HELMANDOB: Hospital COMMUNITY PLANPolic [id number] Repository [facility] Number: [address] [place], [place] [id number] [facility] [address]Vgs: (330) Date: , [place] [address] [phone] () 04/13/2018 TESSA Telles Primary Insurance:[facility] TESSA Telles [place] [id number] [facility] Number: [id number], [place] [id number] Repository [address]Bgs: (330) Date:0198-22-39JB [phone] () [address] [place] [address] 15[address]TF: 04/13/2018 Secondary NOT GIVENUNK [place] Insurance:SELF PAY [facility] Number: Effective Repository Date:2018-04-13 04/13/2018 TESSA Telles Primary Insurance:[facility] TESSA Telles [place] [id number] [facility] HELMANDOB: [facility] Number: [id number], [place] [id number] Repository [address]Psn: (330) Date:1469-47-58NY [phone] () [address] [place] [address]IL: 04/13/2018 Secondary NOT GIVENUNK [place] Insurance:SELF PAY [facility] Number: Effective Repository Date:2018-04-13 04/11/2018 TESSA Primary Insurance[place] TESSA [facility] HELMANDOB: [facility] HELMANDOB: Hospital [facility] [id number] Repository [place] Number: [address] [place] [id number] ROADOAKVI [address]Yal: (330) Date: [place] [address] [phone] () 03/28/2018 TESSA M Primary Insurance:[facility] TESSA M [place] [id number] [facility] HELMANDOB: [facility] Number: [id number], [place] [id number] Repository [address]Xxj: (330) Date:7541-71-14ZJ [phone] () [address] [place] [address] 07[address]QV: 03/28/2018 Secondary NOT GIVENUNK [place] Insurance:SELF PAY [facility] Number: Effective Repository Date:2018-03-28 03/28/2018 TESSA Primary [place] TESSA [facility] HELMANDOB: [facility] HELMANDOB: Hospital [facility] [id number] Repository [place] Number: [address] [place] [id number] ROADREHABILITATION HOSPITAL OF SOUTHERN NEW MEXICOALLVILL [address]Rqm: (330) [place]: [place] [address] [phone] () 03/21/2018 TESSA Primary Insurance[place] TESSA [facility] HELMANDOB: [facility] HELMANDOB: Hospital [facility] [id number] Repository [place] Number: [address] [place] [id number] ROADMARSHALLVILL [address]Jlf: (330) Date: [place] [address] [phone] () 03/14/2018 TESSA Telles Primary Insurance:[facility] TESSA Telles [place] [id number] [facility] CenterMANDOB: [facility] Number: [id number] Hospital [place] [id number] Repository [address]Kba: (330) Date:7748-28-13UD [phone] () [address] [place] [address]IQ: 03/14/2018 Secondary NOT GIVENUNK [place] Insurance:SELF PAY [facility] Number: Effective Repository Date:2018-03-14 03/14/2018 TESSA Primary [place] TESSA [facility] HELMANDOB: [facility] HELMANDOB: Hospital [facility] [id number] Repository [facility] Number: [address] [place] [id number] ROADTUCSON MEDICAL CENTERSHALLVILL [address]Jef: (330) Date: [place] [address] [phone] () 03/07/2018 TESSA Primary [place] TESSA [facility] HELMANDOB: [facility] HELMANDOB: Hospital [facility] [id number] Repository [facility] Number: [address] [place] [id number] ROADREHABILITATION HOSPITAL OF SOUTHERN NEW MEXICOALLVILL [address]Ryk: (330) Date: [place] [address] [phone] () 03/04/2018 Tessa Primary Counts Include 234 Beds At [facility] HelmanDOB: Insurance:[place] HelmanDOB: System HEALTH CAREPolicy [id number] Repository [place] Number: [address] HospitalFriedaRAPIDAN, [place] [id number] [facility] Health ShreveportciriloRAPID[place], [place] [address]Usy: (330) Date:Plan [address]Fki: (HP) Name:[facility] [phone] () [place]ZFBDAISY[place], [place] [address]KV: 02/28/2018 TESSA Telles Primary Insurance:[facility] TESSA Telles [place] [id number] COMMUNITY PLANPolicy HELMANDOB: [facility] Number: [id number], [place] [id number] Repository [address]Rzg: (330) Date:8454-45-00ZJ [phone] () [address] [place] [address] 180[address]QF: 02/28/2018 Secondary NOT GIVENUNK [place] Insurance:SELF PAY [facility] Number: Effective Repository Date:2018-02-28 02/28/2018 TESSA Primary [place] TESSA [facility] HELMANDOB: [facility] HELMANDOB: Hospital COUNTS INCLUDE 234 BEDS AT THE [facility] PLANPolic [id number] Repository [facility] Number: [address] [place], [place] [id number] [facility] [address]Tmk: (330) Date: [place] [address] [phone] () 02/23/2018 TESSA Telles Primary Insurance:[facility] TESSA Telles [place] [id number] COUNTS INCLUDE 234 [facility]S [facility] THE [facility] PLANHospital for Special SurgeryMANDOB: [facility] Number: [id number], [place] [id number] Repository [address]Gwn: (330) Date:3577-21-62JD [phone] () [address] [place] [address] 495[address]GE: 02/23/2018 Secondary NOT GIVENUNK [place] Insurance:SELF PAY [facility] Number: Effective Repository Date:2018-02-23 02/23/2018 TESSA Telles Primary Insurance:[facility] TESSA Telles [place] [id number] [facility] CenterMANDOB: [facility] Number: [id number], [place] [id number] Repository [address]Jdr: (330) Date:9907-38-92AN [phone] () [address] [place] [address]YD: 02/23/2018 Secondary NOT GIVENUNK [place] Insurance:SELF PAY [facility] Number: Effective Repository Date:2018-02-16 02/16/2018 TESSA Telles Primary Insurance:[facility] TESSA Telles [place] [id number] COUNTS INCLUDE 234 [facility]S AT THE [facility] PLANPolicy HELMANDOB: [facility] Number: [id number], [place] [id number] Repository [address]Kfa: (330) Date:3450-19-80JU [phone] () [address] [place], [place] [address]WP: 02/16/2018 Secondary NOT GIVENUNK [place] Insurance:SELF PAY [facility] Number: Effective Repository Date:2018-02-16 02/16/2018 TESSA M Primary Insurance:[facility] TESSA Telles [place] [id number] [facility] CenterMANDOB: [facility] Number: [id number], [place] [id number] Repository [address]Zwv: (330) Date:4885-00-11ZD [phone] () [address] [place], [place] [address]WP: 02/16/2018 Secondary NOT GIVENUNK [place] Insurance:SELF PAY [facility] Number: Effective Repository Date:2018-01-28 02/16/2018 TESSA M Primary Insurance:[facility] TESSA Telles [place] [id number] [facility] Number: [id number], [place] [id number] Repository [address]Qyo: (330) Date:7418-64-89CT [phone] () [address] [place] [address] 130[address]IF: 02/16/2018 Secondary NOT GIVENUNK [place] Insurance:SELF PAY [facility] Number: Effective Repository Date:2018-02-16 02/14/2018 TESSA [place] TESSA [facility] HELMANDOB: [facility] HELMANDOB: Hospital [facility] [id number] Repository [facility] Number: [address] BHUPINDERMAYO CLINIC HEALTH SYSTEM– CHIPPEWA VALLEYCIRILORAPIDAN, [place] [id number] [facility] [address]Ucm: (330) Date: [place] [address] [phone] () 01/31/2018 TESSA Primary Insurance[place] TESSA [facility] HELMANDOB: [facility] HELMANDOB: Hospital COUNTS INCLUDE 234 [facility]EDS AT THE [facility] PLANPolicy [id number] Repository [facility] Number: [address] [place] [id number] ROADPENELOPELL [address]Umh: (330) Date: [place] [address] [phone] (HP) 01/19/2018 TESSA M Primary Insurance:[facility] TESSA Telles [place] [id number] [facility] HELMANDOB: [facility] Number: [id number], [place] [id number] Repository [address]Kwz: (330) Date:2063-43-42LX [phone] () [address] [place] [address] 08229TT: 01/19/2018 Secondary NOT GIVENUNK [place] Insurance:SELF PAY [facility] Number: Effective Repository Date:2018-01-19 01/19/2018 TESSA M Primary Insurance:[facility] TESSA Telles [place] [id number] [facility] CenterMANDOB: [facility] Number: [id number], [place] [id number] Repository [address]0479Ftx: ([phone]) Date:1175-18-85MF [phone] () [address] [place] [address] 62439BN: 01/19/2018 Secondary NOT GIVENUNK [place] Insurance:SELF PAY [facility] Number: Effective Repository Date:2018-01-19 01/11/2018 [place] [facility] HELMANDOB: [facility] HELMANDOB: Hospital [facility] [id number] Repository ALLA Number: [address] [place] [id number]PENELOPELL [address]Uyq: (330) Date: , [place] [address] [phone] (HP) 01/03/2018 [place] [facility] HELMANDOB: [facility]OB[facility] [id number] Repository [place] Number: [address] [place] [id number] [address]Vly: (330) [place]: [place] [address] [phone] () 12/27/2017 [place] Primary [place] [facility] HELMANDOB: [facility] HELMANDOB: Hospital COUNTS INCLUDE 234 [facility]S AT [facility] PLANPolic [id number] Repository ALLA Number: [address] [place] [id number] LEE [address]Yss: (330) Date: [place] [address] [phone] (HP) 12/22/2017 TESSA Telles Primary Insurance:[facility] TESSA Telles [place] [id number] [facility] Number: [id number], [place] [id number] Repository 9[address]Xwi: ([phone]) Date:4048-37-98YU [phone] () [address] [place] [address] 10473VB: 12/22/2017 Secondary NOT GIVENUNK [place] Insurance:SELF PAY [facility] Number: Effective Repository Date:2017-12-22 12/06/2017 [place] [facility] HELMANDOB: [facility] HELMANDOB: Hospital [facility] [id number] Repository ALLA Number: [address] [place] [id number] LEE [address]Fco: ([phone]) Date: [place] [address] [phone] (HP) 11/24/2017 TESSA Telles Primary Insurance:[facility] TESSA Telles [place]rell [id number] [facility] Number: [id number], [place] [id number] Repository 28356Ixx: ([phone]) Date:8720-43-86YR [phone] () [address] [place] [address] 16899OZ: 11/24/2017 Secondary NOT GIVENUNK [place] Insurance:SELF PAY [facility] Number: Effective Repository Date:2017-11-24 10/27/2017 TESSA Telles Primary Insurance:[facility] TESSA Telles [place] [id number] [facility] Number: [id number], [place] [id number] Repository 287[address]Fcn: ([phone]) Date:4814-37-05UQ [phone] () [address] [place] [address] 47506RG: 10/27/2017 Secondary NOT GIVENUNK [place] Insurance:SELF PAY [facility] Number: Effective Repository Date:2017-10-27 10/20/2017 TESSA Telles Primary Insurance:[facility] TESSA Telles [place]rell [id number] [facility] Number: [id number], [place] [id number] Repository [address]Blu: (330) Date:9883-76-91LA [phone] () [address] [place] [address] 67702AA: 10/20/2017 Secondary NOT GIVENUNK [place] Insurance:SELF PAY [facility] Number: Effective Repository Date:2017-10-20 10/20/2017 TESSA Telles Primary [facility]ESSA [facility]elles [facility] HELMANDOB: [facility] [id number] [address] Number: [address] [id number] [address] [address]~KENRICK@ Date:2017-10-20Tel: 330) AILMaggyCOMTel: [phone] [phone] Name:LEXIO Malissa ()Tel: (000) () [address] [place] [address] 000-0000 () 28001UY: 09/15/2017 TESSA Telles Primary Insurance:[facility] TESSA Telles [place] [id number] COUNTS INCLUDE [facility] PLANHospital for Special SurgeryMANDOB: [facility] [address] Number: [id number] [id number] Repository 922[address]Egx: ([phone]) Date:0397-10-30ER [phone] () [address] [place] [address] 62725RT: 09/15/2017 Secondary NOT GIVENUNK [place] Insurance:SELF PAY [facility] Number: Effective Repository Date:2017-09-13 09/08/2017 TESSA Telles Primary Insurance:[facility] TESSA Telles [place] [id number] COUNTS INCLUDE 234 [facility]S [facility] HELMANDOB: Community [address] Number: [id number] [id number] Repository [address]Qpl: (330) Date:9546-24-20CL [phone] () [address] [place] [address] 29422WG: 09/08/2017 Secondary NOT GIVENUNK [place] Insurance:SELF PAY [facility] Number: Effective Repository Date:2017-09-07 09/07/2017 TESSA Telles Primary TESSA Telles [facility] HELMANDOB: Insurance:[facility] HELMANDOB: [facility] [id number] [address] Number: [address] [id number] [address] [address]~KENRICK@ Date:2017-09-06 48828Hqt: 330 CHOLOel: [id number] [phone] Name:XPO Box ()Tel: (000) () [address] [place] [address] 000-0000 () 77531ZY: 09/03/2017 TESSA Tleles Primary Insurance:[facility] TESSA Telles [place] [id number] [facility] CenterM[facility]: Community [address] StA[address] Number: [id number] [id number] Repository 12[address]Vlw: (330) Date:0160-52-87YS [phone] () [address] [place] [address] 96820TJ: 09/03/2017 Secondary NOT GIVENUNK [place] Insurance:SELF PAY [facility] Number: Effective Repository Date:2017-09-03 09/01/2017 TESSA Telles Primary Insurance:[facility] TESSA Telles [place] [id number] COUNTS INCLUDE 234 BEDS [facility]Holy [facility] HELMANDOB: Community [address] StA[address] Number: [id number] Hospital H2Kkxicfk, [place] [id number] Repository 686[address]Vlp: (330) Date:8519-44-48EF [phone] () [address] [place] [address] 79100AW: 09/01/2017 Secondary NOT GIVENUNK [place] Insurance:SELF PAY [facility] Number: Effective Repository Date:2017-07-08 07/14/2017 TESSA Telles Primary [facility]SA [facility] Insurance[facility] HELMANDOB: [facility] [id number] Number: [address]THFSH[address], [place] [id number] [place], [place] [address]~FOAMBEE@ Date:2017-07-1416016Xnm: (330) AIL.COMTel: [id number] [phone] ( Name:XPO Box ()Tel: (000) () [address] [place] [address] 000-0000 (WP) 24424KQ: 07/07/2017 TESSA Telles Primary TESSA [facility] HELMANDOB: Insurance:[employer] HELMANDOB: [facility] [id number] [address] Number: [address] [id number], [place] [id number] [place]7LWHGHKF, [place] [address]~FOAMBEE@ Date:2017-07-07Tel: (330) AIL.COMTel: [phone] [phone] Name:XPO Box (HP)Tel: (000) (HP) [address] [place] [address] 000-0000 (WP) 99121VO: 06/09/2017 TESSA Telles [facility] TESSA Telles [facility] HELMANDOB: Insurance:[facility] HELMANDOB: Foundation [id number] COUNTS INCLUDE 234 [facility]S [facility] PLAPolunitypoint [facility] [id number] Repository [address] Number: [address] [id number], [place] [id number] [address] [address]~EDWINKATY@ Date:2017-06-09Tel: (399) COMTel: [phone] [phone] Name:LEXIO Malissa (HP)Tel: [phone]) () [address], [place] 000-0000 (WP) 274[address]ZD:
== END 2018-04-28 15:15 | disposition home or self-care (01) | DRG 542 ==
LOC: WPOUT 07:18
PROVIDERS: Admitting Provider Obstetrics & Gynecology; Referring Provider Obstetrics & Gynecology; Visit Provider Obstetrics & Gynecology
DX: O99.344 Other mental disorders complicating childbirth (principal); O70.20 Third degree perineal laceration during delivery, unspecified; F41.9 Anxiety disorder, unspecified; Z3A.38 38 weeks gestation of pregnancy; Z37.0 Single live birth; O75.89 Other specified complications of labor and delivery; Q61.3 Polycystic kidney, unspecified; Z79.899 Other long term (current) drug therapy
CPT/HCPCS: 59025; 59050; 85027; 86850; 86900; 99218; J7120; G0378

== ENCOUNTER → 2019-06-20 13:02 | Outpatient (CLI) | payer MEDICAID, SELFPAY ==
[2019-06-20 11:44] VITALS: BMI 26.1
[2019-06-22 20:50] LABS: HPV Reflexed? NOT INDICATED
== END ==
PROVIDERS: Referring Provider Nurse Practitioner Women's Health; Visit Provider Nurse Practitioner Women's Health
DX: Z12.4 Encounter for screening for malignant neoplasm of cervix (principal)
CPT/HCPCS: 88175; G0145

== ENCOUNTER → 2019-11-20 09:04 | Outpatient (CLI) | payer MEDICAID, SELFPAY ==
[2019-11-20 08:28] VITALS: BMI 22.7
[2019-11-20 10:37] LABS: HIV - WCH Non-Reactive (Nonreactive)
[2019-11-20 17:59] LABS: Chlamydia Trachomatis by PCR Negative (Negative); Neisserai gonorrhoeae by PCR Negative (Negative); Probe Check PASS; Sample Adequacy Control PASS; Specimen Processing Control PASS
[2019-11-23 01:39] LABS: Rapid Plasmin Reagin (RPR) NONREACTIVE (NONREACTIVE)
[2019-11-23 17:44] LABS: HCV Quant. RNA PCR HCV Not Detected IU/mL (.)
[2019-11-23 18:16] LABS: HSV 1 IgG < 0.91 index (0.00-0.90); HSV 2 IgG < 0.91 index (0.00-0.90)
== END ==
PROVIDERS: Referring Provider Obstetrics & Gynecology; Visit Provider Obstetrics & Gynecology
DX: Z11.3 Encounter for screening for infections with a predominantly sexual mode of transmission (principal)
CPT/HCPCS: 36415; 86592; 86695; 86696; 86703; 87210; 87491; 87522; 87591

== ENCOUNTER → 2020-12-12 17:12 | Outpatient (CLI) | payer MEDICAID, SELFPAY ==
[2020-12-12 13:27] VITALS: BMI 25.3
== END ==
PROVIDERS: Visit Provider Obstetrics & Gynecology
DX: R30.0 Dysuria (principal)
CPT/HCPCS: 87086; 87088

== ENCOUNTER 2021-07-11 16:18 | Outpatient (CLI) | payer MEDICAID, SELFPAY ==
[2021-07-14 12:08] LABS: Chlamydia By Nucleic Acid AMP Negative (Negative)
[2021-07-14 13:25] LABS: Gonococcus By Nucleic Acid AMP Negative (Negative)
[2021-07-17 18:37] LABS: HPV APTIMA, High Risk Negative (Negative)
== END 2021-07-11 23:59 | disposition home or self-care (01) ==
LOC: LABSPEC 16:20
PROVIDERS: Referring Provider Obstetrics & Gynecology; Visit Provider Obstetrics & Gynecology
DX: A64 Unspecified sexually transmitted disease (principal); R87.619 Unspecified abnormal cytological findings in specimens from cervix uteri
CPT/HCPCS: 87491; 87591; 87624; 88175; G0145

== ENCOUNTER → 2021-09-19 | Outpatient (CLI) | payer OTHER, MEDICAID, SELFPAY | END | disposition home or self-care (01) | PROVIDERS: Referring Provider Nurse Practitioner Women's Health; Visit Provider Nurse Practitioner Women's Health | DX: N39.0 Urinary tract infection, site not specified (principal) | CPT/HCPCS: 87086 ==

== ENCOUNTER → 2021-10-27 | Outpatient (CLI) | payer OTHER, MEDICAID, SELFPAY ==
--- NOTE | 2021-10-27 10:55 | US_ITS ---
EXAM: US PELVIS TRANSABDOMINAL, COMPLETE CLINICAL INDICATION: PELVIC PAIN TECHNIQUE: Transabdominal pelvic ultrasound was performed with grayscale and color Doppler imaging. This report was created using Karm[employer]here report Zephyr technology. COMPARISON: None. FINDINGS: UTERUS/CERVIX: Uterus measures 9.3 x 3.5 x 5.9 cm. The endometrium measures 3 mm. Anteverted. There is no uterine mass. RIGHT OVARY: The right ovary measures 2.4 x 2.1 x 1.8 cm. Blood flow is present in the right ovary. LEFT OVARY: Left ovary measures 3.1 x 1.6 x 2.1 cm. Blood flow is present in the left ovary. FREE FLUID: None. BLADDER: The bladder measures 9.6 x 8.1 x 10.1 cm for volume of 400 mL. OTHER FINDINGS: There is echogenicity seen within the vagina possibly representing a tampon. US/Pelvic (Non ) IMPRESSION: Slightly linear echogenic structures within the vagina of uncertain etiology or significance. No other abnormalities are identified. Electronically Signed: Moises Mcdonald MD at 17:44 EDT ,
== END | disposition home or self-care (01) ==
LOC: US 10:54
PROVIDERS: Referring Provider Nurse Practitioner Women's Health; Visit Provider Nurse Practitioner Women's Health
DX: R10.2 Pelvic and perineal pain (principal); N93.9 Abnormal uterine and vaginal bleeding, unspecified
CPT/HCPCS: 76856; 93976

== ENCOUNTER → 2023-08-12 | Outpatient (CLI) | payer OTHER, SELFPAY ==
[2023-08-17 05:07] LABS: Chlamydia By Nucleic Acid AMP Negative (Negative); Gonococcus By Nucleic Acid AMP Negative (Negative)
== END | disposition home or self-care (01) ==
LOC: LABSPEC 16:37
PROVIDERS: Referring Provider Nurse Practitioner Women's Health; Visit Provider Nurse Practitioner Women's Health
DX: Z11.3 Encounter for screening for infections with a predominantly sexual mode of transmission (principal)
CPT/HCPCS: 87491; 87591